=== PATIENT | female | born 1990 | race Caucasian/White ===

== ENCOUNTER → 2018-04-07 14:34 | Outpatient (CLI) | payer MEDICAID, SELFPAY ==
[2018-04-08 15:19] LABS: Glucose, Dipstick Normal (Normal); Ketone-Dipstick Negative (Negative); Leukocyte Esterase-Dipstick 500 /ul (Negative); Nitrite-Dipstick Positive (Negative); Occult Blood-Urine 10 /ul (Negative); Protein-Dipstick 15 mg/dl (Negative); Specific Gravity, Urine 1.025 (1.002-1.030); Urine Clarity Cloudy (Clear); Urine Urobilinogen 4 mg/dl (Normal)
[2018-04-08 15:23] LABS: Urine Bilirubin Dipstick 3 mg/dL (Negative)
[2018-04-08 15:35] LABS: Color, Urine Orange (Yellow)
[2018-04-08 15:37] LABS: Bacteria 3+ /hpf (None Seen); Red Blood Cells-Urine 0-5 SEEN /hpf (0-5); Squamous Epithelial Cells - UA 0-5 SEEN /hpf (5-10); White Blood Cells >100 SEEN /hpf (0-5)
[2018-04-08 15:39] LABS: Calcium Oxalate Crystals Ur RARE /hpf (<or=2+); Mucous, Urine 3+ /hpf (<or=2+)
== END ==
PROVIDERS: Referring Provider Physician Assistant Surgical; Visit Provider Physician Assistant Surgical
DX: R39.15 Urgency of urination (principal)
CPT/HCPCS: 81001; 87077; 87086; 87088; 87186

== ENCOUNTER → 2018-12-26 14:25 | Outpatient (CLI) | payer MEDICAID, SELFPAY ==
[2018-12-25 17:45] VITALS: BMI 35.4
[2018-12-26 14:28] LABS: Red Blood Cells-Urine 0 SEEN /hpf (0-5)
[2018-12-26 14:43] LABS: Color, Urine Yellow (Yellow); Glucose, Dipstick Normal (Normal); Ketone-Dipstick Negative (Negative); Leukocyte Esterase-Dipstick 25 /ul (Negative); Nitrite-Dipstick Negative (Negative); Occult Blood-Urine Negative /ul (Negative); Protein-Dipstick Negative (Negative); Specific Gravity, Urine 1.025 (1.002-1.030); Urine Bilirubin Dipstick Negative (Negative); Urine Clarity Sl. Cloudy (Clear); Urine Urobilinogen Normal (Normal)
[2018-12-26 14:50] LABS: Bacteria 2+ /hpf (None Seen); Calcium Oxalate Crystals Ur 1+ /hpf (<or=2+); Mucous, Urine 1+ /hpf (<or=2+); Squamous Epithelial Cells - UA 0-5 SEEN /hpf (5-10); White Blood Cells 0-5 SEEN /hpf (0-5)
== END ==
PROVIDERS: Referring Provider Physician Assistant Surgical; Visit Provider Physician Assistant Surgical
DX: R30.0 Dysuria (principal)
CPT/HCPCS: 81001; 87086; 87088; 87186

== ENCOUNTER → 2019-06-07 09:48 | Outpatient (CLI) | payer BC, MEDICAID, SELFPAY ==
[2019-06-07 09:31] VITALS: BMI 35.4
[2019-06-07 10:14] LABS: Absolute Lymphocyte Count 2.25 X10^3/uL (0.83-4.51); Absolute Neutrophil Count 4.8 X10^3/uL (2.0-7.7); Basophil# 0.04 X10^3/uL; Basophil% 0.5 % (0-1); Eosinophil# 0.14 X10^3/uL; Eosinophils% 1.8 % (0-5); Hematocrit 44.8 % (37-47); Hemoglobin 14.5 g/dL (12.0-15.0); Lymphocyte # 2.25 X10^3/ul (4.0); Lymphocyte % 28.8 % (19-41); Mean Corp Hgb Conc 32.4 g/dL (32-36); Mean Corpuscular Hgb 26.6 pg (27.0-32.0); Mean Corpuscular Volume 82.1 fL (81-99); Mean Platelet Vol. 10.6 fl (6.2-12.0); Monocyte# 0.53 X10^3/uL; Monocyte% 6.8 % (0-10); NRBC Flagged by Analyzer 0 % (0-5); Neutrophil # 4.81 X10^3/uL (2.7-7.7); Neutrophil % 61.7 % (47-70); Platelet Count 238 K/mm3 (150-450); RBC Distribution Width CV 13.2 % (11.6-14.6); RBC Distribution Width SD 38.5 fl (35.1-43.9); Red Blood Count 5.46 M/mm3 (4.2-5.4); White Blood Count 7.8 K/mm3 (4.4-11.0)
[2019-06-07 11:30] LABS: Prolactin 11.5 ng/mL; Thyroid Stim Hormone (TSH) 4.24 uIU/mL (0.358-3.74)
[2019-06-10 16:10] LABS: HPV APTIMA, High Risk Positive (Negative)
== END ==
PROVIDERS: Referring Provider Nurse Practitioner Women's Health; Visit Provider Nurse Practitioner Women's Health
DX: C53.9 Malignant neoplasm of cervix uteri, unspecified (principal); N92.6 Irregular menstruation, unspecified
CPT/HCPCS: 36415; 84146; 84443; 85025; 87624; 88175; G0145

== ENCOUNTER → 2019-07-02 10:24 | Outpatient (CLI) | payer BC, MEDICAID, SELFPAY ==
[2019-06-07 09:31] VITALS: BMI 35.4
[2019-07-02 13:04] LABS: Free T3 3.1 pg/mL (2.18-3.98); T4 Free Direct 0.95 ng/dL (0.76-1.46)
[2019-07-05 16:08] LABS: Thyroid Peroxidase AB 53 IU/mL (0-34)
[2019-07-05 20:33] LABS: Thyroglobulin Antibody 27.1 IU/mL (0.0-0.9)
== END ==
PROVIDERS: PCP Family Medicine; Visit Provider Family Medicine
DX: E03.9 Hypothyroidism, unspecified (principal)
CPT/HCPCS: 36415; 84439; 84443; 84481; 86376; 86800

== ENCOUNTER → 2019-07-21 09:54 | Outpatient (CLI) | payer BC, MEDICAID, SELFPAY ==
--- NOTE | 2019-07-21 | IMM_PTH ---
PATIENT: MARIBELL GARCIA LOC: [facility] U#:[id number] AGE/SX: 34/F ROOM: RE07/21/[address]: Dr. Ami Chaudhari MD : 1990 BED: DIS: SPEC #: [id number] RECD: 07/22/19 13:27 STATUS: SEAN REQ #: [id number] BRENDA: 07/21/19 00:[address]: Ami Chaudhari DEPT: IMMUNOHISTOCHEMISTRY RECD BY: Fadia Andrews ENTERED: 07/22/19 13:27 SP TYPE: IMMUNO OTHR DR: Dr. Dee Stern MD Tissues: Uterine cervix, NOS Procedures: p16 (initial) KI-67 (add) PHYSICIAN & [place] [id number] SPECIMEN INFORMATION: Tissue Source: Cervix Clinical Info: Abnormal pap LGSIL, HIV positive Specimen Number: [id number] CPT code: 73401, 30616 METHODOLOGY: Deparaffinized sections of prefer/formalin-fixed tissue or PAP/DQ stained slides are incubated with monoclonal/polyclonal antibodies/oligonucleotide probes. Localization is made via biotin free immunoperoxidase method. Appropriate controls are performed and reacted as expected. Results on target cell population are indicated in the following table: RESULTS: ANTIBODY / CLONE RESULT P16 (E6H4) negative Ki-67 (30-9) negative These tests were developed and their performance characteristics determined by [facility]. They may not have been cleared or approved by the U.S. Food and Drug Administration. The FDA has determined that such clearance or approval is not necessary. The above immunohistochemical/dualISH markers are ordered and reviewed by the Pathologist. INTERPRETATION: Cervix, biopsy: Negative for dysplasia. LEON:kelly 07/23/19
--- NOTE | 2019-07-21 | CER_PTH ---
PATIENT: MARIBELL GARCIA LOC: [facility]#:[id number] AGE/SX: 34/F ROOM: RE07/21/[address]: Dr. Ami Chaudhari MD : 1990 BED: DIS: SPEC #: [id number] RECD: 07/21/19 13:48 STATUS: SEAN BLEVINS #: [id number] BRENDA: 07/21/19 00:[address]: Ami Chaudhari DEPT: SURGICAL PATHOLOGY RECD BY: Ronald Cotton ENTERED: 07/21/19 13:53 SP TYPE: CERV OTHR DR: Dr. Dee Stern MD Tissues: Uterine cervix, NOS Procedures: Surgery Specimen Level IV HEADER OPERATION: Colposcopy PRE-OP DIAGNOSIS: Abnormal pap LGSIL, HPV positive TISSUE SUBMITTED: Cervix MICROSCOPIC DIAGNOSIS Cervix, biopsy: Focal chronic inflammation. Negative for dysplasia. See comment. LEON:kelly 2/27/20 COMMENT Immunohistochemistry ([id number]) for surrogate HPV marker (p16) supports the above diagnosis. MICROSCOPIC DESCRIPTION Slides are reviewed. GROSS DESCRIPTION Received is one container labeled with the patient's name and not further designated. The specimen consists of one irregular fragment of light gregorio soft tissue that measures 0.2 x 0.2 x 0.1 cm. The specimen is totally submitted in one cassette. / SJ:rg 07/21/19 TC:3 CPT: 74657
[2019-07-21 09:02] VITALS: BMI 36.9
[2019-07-21 10:46] LABS: Estradiol 58.7 pg/mL; Follicle Stimulating Hormone 4.7 mIU/mL
[2019-07-23 12:07] LABS: DHEA Sulfate 110.4 ug/dL (84.8-378.0)
[2019-07-23 13:02] LABS: Testosterone Free 3.8 pg/mL (0.0-4.2)
[2019-07-26 13:24] LABS: 17-Hydroxyprogesterone 44 ng/dL (.)
== END ==
PROVIDERS: PCP Family Medicine; Referring Provider Obstetrics & Gynecology; Visit Provider Obstetrics & Gynecology
DX: R87.612 Low grade squamous intraepithelial lesion on cytologic smear of cervix (LGSIL) (principal); N91.1 Secondary amenorrhea
CPT/HCPCS: 36415; 82627; 82670; 83001; 83498; 84402; 88305; 88341; 88342; 82626

== ENCOUNTER → 2019-10-15 08:46 | Outpatient (CLI) | payer MEDICAID, SELFPAY ==
[2019-08-16 09:07] VITALS: BMI 35.6
[2019-10-15 13:01] LABS: Thyroid Stim Hormone (TSH) 1.38 uIU/mL (0.358-3.74)
== END ==
PROVIDERS: PCP Family Medicine; Visit Provider Family Medicine
DX: E03.9 Hypothyroidism, unspecified (principal)
CPT/HCPCS: 36415; 84443

== ENCOUNTER 2020-04-16 12:25 | Emergency (ER) | payer MEDICAID, SELFPAY ==
[2020-01-27 09:01] VITALS: BMI 35.6
[2020-04-16 12:26] VITALS: BP 146/94; PULSE 117; RESP 18; TEMP 36.1; O2SAT 99; BMI 32.8
--- NOTE | 2020-04-16 12:34 | VDLE_ITS ---
Reason For Study: Pain RIGHT GSV is normal. CFV is compressible, spontaneous, phasic, competent and demonstrates normal augmentation. FV is compressible, spontaneous, phasic, competent and demonstrates normal augmentation. POP V is compressible, spontaneous, phasic, competent and demonstrates normal augmentation. T/P Trunk is compressible. PTV is compressible. Acute deep vein thrombosis is noted in the right peroneal vein. Procedure This is a venous duplex using B-mode, color flow and spectral Doppler. Exam performed portable in ED. A preliminary report was called and/or faxed to [facility]. Interpretation Summary Acute deep venous thrombosis right peroneal vein Patent and compressible right great saphenous vein Ordering Physician: Keely Red Referring Physician: Dee Stern Performed By: Betty Zavaleta RVT
--- NOTE | 2020-04-16 12:37 | ED.VIS.GEN ---
History of Present Illness Chief Complaint: Lower Extremity Injury Detail of Chief Complaint: Right calf pain Informant: Patient Onset: Days - 5 days Context: Gradual Onset Timing: Waxes and wanes Current Severity: Moderate Maximum Severity: Moderate Narrative: Patient presents with a 5-day history of right calf pain. She denies any known injury or change in activity. She has tried increasing fluids, drinking Gatorade, using icy hot, etc. without improvement. She is concerned for possible blood clot. She denies personal history of blood clots. She denies chest pain or shortness of breath. - Past Medical History (1) Hypothyroid Status: Chronic Past Medical History - Allergies and Home Meds Allergies/Adverse Reactions: Allergies latex Allergy (Verified 04/16/20 12:26) Unknown TAPE Allergy (Uncoded 04/16/20 12:26) Unknown Primary Care Physician: Dee Stern MD [Primary Care Provider] - Prior records reviewed: Yes Lives: With Family Smoking Status: Never smoker Review of Systems General: Denies: Chills, Fever Eyes: Denies: Visual changes - bilaterally ENT: Denies: Bilateral ear pain Cardiovascular: Denies: Chest pain Respiratory: Denies: Dyspnea, Cough Gastrointestinal: Denies: Abdominal pain Musculoskeletal: Reports: Swelling, Extremity Pain Skin: Denies: Rash Endocrine: Denies: Polyuria, Polydipsia Hematologic: Denies: Easy bruising Physical Exam Vital Signs/Narrative: Vital Signs Temp Pulse Resp BP Pulse Ox 04/16/20 12:26 96.9 F L 117 H 18 146/94 H 99 Inital Vital Signs reviewed: Yes General: Well nourished, Well developed Head: Normocephalic ENT: Moist mucous membranes Neck: Supple Cardiovascular: Regular rate, Regular rhythm Respiratory: No distress, CTA bilaterally Abdomen: Soft, Nontender Extremities: Calf Tenderness - Mild right calf tenderness. Minimal edema. No overlying skin changes. Skin: Normal color Neurological: Alert, Oriented x3, Normal Strength, Normal Sensation Psychological: Normal affect Diagnostic/Tx/Re-eval - Medical Decision Making Venous ultrasound of the right lower extremity was performed. Per tech she does have a peroneal clot. Test results are discussed with the patient. At this time she has no risk factors for clot. A hypercoagulable panel will be drawn and she will be started on Xarelto. ED Disposition - Plan for ED Patient: Disposition: Home or Assisted Living Diagnosis: DVT (deep venous thrombosis) Instructions: ED DVT Prescriptions: Rivaroxaban [Xarelto] 15 mg PO BID.TCU #42 tab Transmission Status: Pending to [id number] Referrals: Dee Stern MD [Primary Care Provider] - 1-2 Weeks
[2020-04-16] MEDS: Rivaroxaban 15 MG Tablet PO (14:10)
[2020-04-16 14:21] VITALS: PULSE 110; RESP 18; O2SAT 98
[2020-04-19 20:08] LABS: Protein C Antigen 119 % (60-150); Protein C, Functional 161 % (73-180)
[2020-04-21 12:07] LABS: Antithrombin 3 Function 50 % (75-135)
[2020-04-21 15:55] LABS: Anti-Cardiolipin Ab, IgG, Qn < 9 GPL U/mL (0-14); Anti-Cardiolipin Ab, IgM, Qn 11 MPL U/mL (0-12); Anti-Thrombin 3 AG, Immunol 67 % (72-124); Beta-2-Glycoprotein I IgA <9 (0-25); Beta-2-Glycoprotein I IgG <9 (0-20); Beta-2-Glycoprotein I IgM <9 (0-32)
== END 2020-04-16 14:24 | disposition home or self-care (01) ==
PROVIDERS: Emergency Provider Emergency Medicine; PCP Family Medicine
DX: I82.451 Acute embolism and thrombosis of right peroneal vein (principal); E03.9 Hypothyroidism, unspecified; Z79.899 Other long term (current) drug therapy
CPT/HCPCS: 36415; 81240; 81241; 85300; 85301; 85302; 85303; 86146; 86147; 93971; 99282

== ENCOUNTER → 2020-06-14 | Outpatient (CLI) | payer MEDICAID, SELFPAY ==
[2020-06-14 09:09] VITALS: BMI 48.5
[2020-06-20 14:23] LABS: HPV APTIMA, High Risk Negative (Negative)
== END | disposition home or self-care (01) ==
LOC: LABSPEC 12:56
PROVIDERS: PCP Family Medicine; Referring Provider Nurse Practitioner Women's Health; Visit Provider Nurse Practitioner Women's Health
DX: Z12.4 Encounter for screening for malignant neoplasm of cervix (principal)
CPT/HCPCS: 87624; 88175; G0145

== ENCOUNTER → 2020-12-25 | Outpatient (CLI) | payer MEDICAID, SELFPAY ==
[2020-06-14 09:09] VITALS: BMI 48.5
[2020-12-25 13:28] LABS: Color, Urine Yellow (Yellow); Glucose, Dipstick Normal (Normal); Ketone-Dipstick Negative (Negative); Leukocyte Esterase-Dipstick 500 /ul (Negative); Nitrite-Dipstick Negative (Negative); Occult Blood-Urine 25 /ul (Negative); Protein-Dipstick 30 mg/dl (Negative); Urine Bilirubin Dipstick Negative (Negative); Urine Clarity Cloudy (Clear); Urine Urobilinogen Normal (Normal); Urine pH 6.5 (5.0 - 8.0)
[2020-12-25 13:36] LABS: Bacteria 2+ /hpf (None Seen); Red Blood Cells-Urine 0-5 SEEN /hpf (0-5); Squamous Epithelial Cells - UA 5-10 SEEN /hpf (5-10); White Blood Cells 50-100 SEEN /hpf (0-5)
[2020-12-25 13:37] LABS: Mucous, Urine 1+ /hpf (<or=2+)
== END | disposition home or self-care (01) ==
LOC: LABSPEC 12:57
PROVIDERS: PCP Family Medicine; Referring Provider Physician Assistant Surgical; Visit Provider Physician Assistant Surgical
DX: R35.8 Other polyuria (principal); R30.0 Dysuria
CPT/HCPCS: 81001

== ENCOUNTER → 2021-01-22 14:46 | Outpatient (CLI) | payer MEDICAID, SELFPAY ==
[2021-01-04 08:46] VITALS: BMI 33.3
--- NOTE | 2021-01-22 14:48 | MRI_ITS ---
STUDY: MRI BRAIN WITH AND WITHOUT CONTRAST REASON FOR EXAM: Female, 30 years old. Syncope TECHNIQUE: Standardized multiplanar fat and water weighted pulse sequences were obtained. IV Dotarem 20ml was administered for the contrast portion of the examination. COMPARISON: None. FINDINGS: Normal size of the ventricles and extra-axial spaces for the patient''s age. Normal white matter tracts of the supratentorial brain. Normal bilateral basal ganglia. Normal thalami. There is no extra-axial fluid accumulation. Normal flow voids within the major intracranial circulation suggesting patency by spin echo criteria. Normal venous enhancement. There is no enhancing intra-axial or extra-axial abnormality. Normal sella turcica, pituitary gland, infundibular stalk, optic chiasm and hypothalamus. Normal tectal plate and pineal gland. Normal midbrain, leonard and medulla. Normal cerebellum. Normal basal cisterns. Normal bilateral temporal bones. Normal bilateral internal auditory canals. No demonstrated orbital abnormality, within the constraints of a routine brain study. Normal visualized paranasal sinuses. Normal calvarium and skull base. Normal visualized soft tissue structures. Normal visualized upper cervical spine. MRI/Brain W/WO Contrast IMPRESSION: Normal unenhanced and enhanced MRI of the brain. Electronically Signed: Mohamud Sorto MD at 17:10 EDT , Service support ,
--- NOTE | 2021-01-22 14:48 | ECHOD_ITS ---
Reason For Study: SYNCOPE/NEAR SYNCOPE Procedure This was a 2D Doppler, Color Flow transthoracic echocardiogram. Exam performed in department. Left Ventricle Normal LV size. Left ventricular systolic function is normal. The estimated ejection fraction is 60 %. No regional wall motion abnormalities noted. Right Ventricle Normal RV size. Normal systolic function. Atria Normal left atrium. Normal right atrium. Mitral Valve Normal mitral valve. Tricuspid Valve Normal tricuspid valve. Aortic Valve Trisinus/trileaflet aortic valve. Pulmonic Valve Normal pulmonic valve. Great Vessels Normal aortic root. The pulmonary artery is normal size. Normal inferior vena cava. Pericardium/Pleural No pericardial effusion. MMode/2D Measurements & Calculations LVIDd: 5.0 cm IVSd: 0.78 cm Ao root diam: 2.6 cm LVIDs: 3.2 cm LVPWd: 0.96 cm FS: 36.6 % LAV(MOD-bp): 51.3 ml LA A4 area: 18.6 cm2 LA dimension(2D): 3.8 cm LAV(MOD-bp) Indexed: 22.7 ml/m2 LAV(MOD-sp2): 47.3 ml LAV(MOD-sp4): 51.4 ml RA A4 area: 14.4 cm2 Doppler Measurements & Calculations Ao V2 max: 113.6 cm/sec LV V1 max: 92.4 cm/sec PA V2 max: 87.1 cm/sec Ao max P.2 mmHg LV V1 max P.4 mmHg ECHO/Echo Complete Interpretation Summary Normal LV size. Left ventricular systolic function is normal. The estimated ejection fraction is 60 %. Structurally normal valves. Ordering Physician: Abelardo Jason Referring Physician: Dee Stern Performed By: Evelin Cheng, CLEM, RVT
== END ==
PROVIDERS: PCP Family Medicine; Referring Provider Psychiatry & Neurology Neurology; Visit Provider Psychiatry & Neurology Neurology
DX: R55 Syncope and collapse (principal)
CPT/HCPCS: 70553; 93306; A9575; J3490

== ENCOUNTER → 2021-01-30 08:29 | Outpatient (CLI) | payer MEDICAID, SELFPAY ==
[2021-01-30 08:55] LABS: Internal QC Validated? YES +Cl - CLEAR BKGD; Pregnancy, Urine Negative Negative
[2021-01-30 08:58] LABS: Hematocrit 44.3 % (37-47); Hemoglobin 14.6 g/dL (12.0-15.0); Mean Corpuscular Hgb 26.9 pg (27.0-32.0); Mean Corpuscular Volume 81.6 fL (81-99); Mean Platelet Vol. 10.4 fl (6.2-12.0); Platelet Count 234 K/mm3 (150-450); RBC Distribution Width CV 12.7 % (11.6-14.6); RBC Distribution Width SD 37.5 fl (35.1-43.9); Red Blood Count 5.43 M/mm3 (4.2-5.4); White Blood Count 8.4 K/mm3 (4.4-11.0)
[2021-01-30 09:32] LABS: ALB/GLOB Ratio 0.9 RATIO (0.9-2.4); AST(SGOT) 19 U/L (15-37); Alanine Aminotransfer ALT/SGPT 28 U/L (13-56); Albumin, Serum 3.3 g/dL (3.2-5.0); Alkaline Phosphatase 89 U/L (45-117); Anion Gap 3 (5-15); BUN 15 mg/dL (7-18); BUN/Creat Ratio 19.9 RATIO (10-20); Calcium,Total 8.1 mg/dL (8.5-10.1); Chloride 105 mmol/L (98-107); Creatinine, Serum 0.76 mg/dL (0.55-1.02); EST Glomerular Filtration Rate 96 mL/min (>60); Est Glom Filt Rate - Afr Amer 116 mL/min (>60); Globulin 3.7 g/dL (2.2-4.2); Glucose 100 mg/dL (74-106); Sodium Level 136 mmol/L (136-145)
--- NOTE | 2021-01-30 15:31 | TILTTABLE_ITS ---
Staff Staff: Adrienne Braswell and - (Bernarda Molina) Summary Pre Test Resting HR: 74 Pre Test Resting BP: 132/77 Minimum Test HR: 0 Maximum Test HR: 111 Minimum Test BP: 0/0 Maximum Test BP: 132/89 Reason for Test Termination: Syncope Physician Tilt Table Report Patient's Physicians Primary Care Physician: Dee Stern Indications/Diagnosis: Syncope Procedure Comments: The patient presented to the tilt table laboratory and was awake and alert. The baseline heart rate was 74 bpm with a baseline blood pressure 132/77 mmHg. The baseline cardiac rhythm was normal sinus rhythm. The patient was placed in the 70 degree upright tilt table position for 20 minutes. The patient remained alert and oriented and warm and dry. The minimal heart rate was 74 bpm with a minimal blood pressure of 123/79 mmHg with a maximal heart rate of 86 bpm and a maximal blood pressure of 129/84 mmHg. The cardiac rhythm remained sinus rhythm. The patient did not lose consciousness. The patient subsequently received nitroglycerin 0.4 mg sublingual x1. The patient was initially alert and oriented and warm and dry. The patient was noted to have a heart rate of 81 bpm with a blood pressure of 132/89 mmHg. Approximately 2 minutes later the patient was noted to have a heart rate of 111 bpm and a blood pressure 130/75 mmHg. The patient was noted to be in sinus rhythm. The patient was subsequently noted to appear clammy and flushed. The patient was reported to have her heart rate increased to 109 bpm and subsequently declined into the 40 bpm range and then subsequently was undetectable. The blood pressure was undetectable. The patient was noted on the residential monitor to become bradycardic and subsequently have an approximate 9-second pause. The patient was reported as unresponsive. The patient was placed back in the supine position where the patient's eyes were reported as then open.. The patient was reported as appearing pale but alert. The patient was noted to have a heart rate of 67 bpm with a blood pressure 128/64 mmHg. The patient's cardiac rhythm was noted to be sinus bradycardia with subsequent return to normal sinus rhythm. The patient received IV normal saline 500 cc. The patient remained alert. The patient was reported to appear pink. The patient was noted to have a concluding heart rate of 88 bpm and a concluding blood pressure 133/86 mmHg. The patient remained in sinus rhythm. The patient reported feeling improved. The patient appeared to return to baseline. The patient was subsequently released from the tilt table laboratory. Summary: 70 degree upright tilt table study status post nitroglycerin sublingual challenge considered positive for reproducible vasovagal/neurocardiogenic (combined cardioinhibitory/vasodepressor) syncope. This note was generated using a voice recognition system and there may be incorrect words, spelling or punctuation that were not noted when reviewing the office note prior to saving.
[2021-01-30 15:51] VITALS: BP 0/0; BP 132/77; BP 132/89
== END ==
PROVIDERS: PCP Family Medicine; Visit Provider Psychiatry & Neurology Neurology
DX: R55 Syncope and collapse (principal); E03.9 Hypothyroidism, unspecified
CPT/HCPCS: 36415; 80053; 81025; 84443; 85027; 93660; J7040; A4216

== ENCOUNTER → 2021-02-09 06:26 | Outpatient (CLI) | payer MEDICAID, SELFPAY ==
[2021-01-04 08:46] VITALS: BMI 33.3
--- NOTE | 2021-02-09 09:17 | TELEMED_ITS ---
[facility] Tele[facility] has confirmed receipt of a request for visit. This document confirms receipt of the order initiating the consult. To find the results of the consultation, please view the patient's reports for the scanned Telemed Consult.
== END ==
PROVIDERS: PCP Family Medicine; Referring Provider Psychiatry & Neurology Neurology; Visit Provider Psychiatry & Neurology Neurology
DX: R55 Syncope and collapse (principal)
CPT/HCPCS: 95819

== ENCOUNTER 2021-06-18 11:55 | Outpatient (CLI) | payer MEDICAID, SELFPAY ==
[2021-06-20 17:14] LABS: HPV Reflexed? NOT INDICATED
== END 2021-06-18 23:59 | disposition short-term general hospital (02) ==
LOC: LABSPEC 11:56
PROVIDERS: PCP Family Medicine; Referring Provider Nurse Practitioner Women's Health; Visit Provider Nurse Practitioner Women's Health
DX: Z12.4 Encounter for screening for malignant neoplasm of cervix (principal)
CPT/HCPCS: 88175; G0145

== ENCOUNTER → 2021-11-05 | Outpatient (CLI) | payer MEDICAID, SELFPAY ==
[2021-11-05 17:40] LABS: Amphetamine Urine VISTA NEGATIVE (<1000 ng/mL); Barbiturate Urine VISTA NEGATIVE (< 200 ng/mL); Benzodiazepine Urine VISTA NEGATIVE (< 200 ng/mL); Cocaine Urine VISTA NEGATIVE (< 300 ng/mL); Ecstacy Urine VISTA NEGATIVE (< 500 ng/mL); Methadone Urine VISTA NEGATIVE (< 300 ng/mL); PCP Urine VISTA NEGATIVE (< 25 ng/mL); THC Urine VISTA NEGATIVE (< 50 ng/mL); Vista UDS pH Range 7
[2021-11-07 22:07] LABS: Chlamydia By Nucleic Acid AMP Negative (Negative)
[2021-11-07 22:53] LABS: Gonococcus By Nucleic Acid AMP Negative (Negative)
== END | disposition home or self-care (01) ==
LOC: LABSPEC 16:43
PROVIDERS: PCP Family Medicine; Visit Provider Obstetrics & Gynecology
DX: Z34.91 Encounter for supervision of normal pregnancy, unspecified, first trimester (principal); Z3A.09 9 weeks gestation of pregnancy
CPT/HCPCS: 80307; 87086; 87088; 87491; 87591

== ENCOUNTER → 2021-11-16 | Outpatient (CLI) | payer MEDICAID, SELFPAY ==
[2021-11-16 09:57] LABS: Absolute Lymphocyte Count 1.87 X10^3/uL (0.83-4.51); Absolute Neutrophil Count 5.3 X10^3/uL (2.0-7.7); Basophil# 0.03 X10^3/uL; Basophil% 0.4 % (0-1); Eosinophil# 0.09 X10^3/uL; Eosinophils% 1.2 % (0-5); Hematocrit 40.6 % (37-47); Hemoglobin 13.6 g/dL (12.0-15.0); Lymphocyte # 1.87 X10^3/ul (0.83-4.51); Lymphocyte % 24.3 % (19-41); Mean Corp Hgb Conc 33.5 g/dL (32-36); Mean Corpuscular Hgb 27.6 pg (27.0-32.0); Mean Corpuscular Volume 82.5 fL (81-99); Mean Platelet Vol. 10.6 fl (6.2-12.0); Monocyte# 0.41 X10^3/uL; Monocyte% 5.3 % (0-10); NRBC Flagged by Analyzer 0 % (0-5); Neutrophil # 5.28 X10^3/uL (2.7-7.7); Neutrophil % 68.5 % (47-70); Platelet Count 212 K/mm3 (150-450); RBC Distribution Width CV 12.6 % (11.6-14.6); Red Blood Count 4.92 M/mm3 (4.2-5.4); White Blood Count 7.7 K/mm3 (4.4-11.0)
[2021-11-16 10:42] LABS: T4 Free Direct 1.24 ng/dL (0.76-1.46); Thyroid Stim Hormone (TSH) 2.66 uIU/mL (0.358-3.74)
[2021-11-16 10:51] LABS: NATERA MAILED SPECIMEN
[2021-11-16 11:10] LABS: HIV - WCH Non-Reactive (Nonreactive); Hepatitis B Surface Antigen Non-Reactive (Nonreactive); Hepatitis C Antibody Non-Reactive (Nonreactive); Rubella IgG Reactive (Nonreactive); Syphilis Antibodies Non-reactive
== END | disposition home or self-care (01) ==
LOC: PAVLAB 09:35
PROVIDERS: PCP Family Medicine; Referring Provider Obstetrics & Gynecology; Visit Provider Obstetrics & Gynecology
DX: Z34.81 Encounter for supervision of other normal pregnancy, first trimester (principal); Z3A.09 9 weeks gestation of pregnancy
CPT/HCPCS: 36415; 84439; 84443; 85025; 86703; 86762; 86780; 86803; 86850; 86900; 86901; 87340

== ENCOUNTER → 2021-11-22 | Outpatient (CLI) | payer MEDICAID, SELFPAY ==
[2021-11-22 14:08] LABS: Glucose Challenge Gest 1H 50g 114 mg/dL (70-140)
== END | disposition home or self-care (01) ==
LOC: PAVLAB 13:23
PROVIDERS: PCP Family Medicine; Referring Provider Obstetrics & Gynecology; Visit Provider Obstetrics & Gynecology
DX: Z34.90 Encounter for supervision of normal pregnancy, unspecified, unspecified trimester (principal); Z3A.09 9 weeks gestation of pregnancy
CPT/HCPCS: 36415; 82950

== ENCOUNTER → 2021-12-10 | Outpatient (CLI) | payer MEDICAID, SELFPAY ==
[2021-12-10 16:56] LABS: NATERA MAILED SPECIMEN
== END | disposition home or self-care (01) ==
LOC: PAVLAB 12:07
PROVIDERS: PCP Family Medicine; Referring Provider Obstetrics & Gynecology; Visit Provider Obstetrics & Gynecology
DX: O30.042 Twin pregnancy, dichorionic/diamniotic, second trimester (principal); Z3A.00 Weeks of gestation of pregnancy not specified
CPT/HCPCS: 36415

== ENCOUNTER → 2022-03-06 | Outpatient (CLI) | payer MEDICAID, SELFPAY ==
[2022-03-06 09:47] LABS: Absolute Lymphocyte Count 2.46 X10^3/uL (0.83-4.51); Absolute Neutrophil Count 11.4 X10^3/uL (2.0-7.7); Basophil# 0.05 X10^3/uL; Basophil% 0.3 % (0-1); Eosinophil# 0.12 X10^3/uL; Eosinophils% 0.8 % (0-5); Hematocrit 37.6 % (37-47); Hemoglobin 12.4 g/dL (12.0-15.0); Lymphocyte # 2.46 X10^3/ul (0.83-4.51); Lymphocyte % 16.5 % (19-41); Mean Corpuscular Hgb 28.5 pg (27.0-32.0); Mean Corpuscular Volume 86.4 fL (81-99); Mean Platelet Vol. 10.6 fl (6.2-12.0); Monocyte% 4.7 % (0-10); NRBC Flagged by Analyzer 0 % (0-5); Neutrophil % 76.2 % (47-70); Platelet Count 217 K/mm3 (150-450); RBC Distribution Width CV 13.7 % (11.6-14.6); RBC Distribution Width SD 43.8 fl (35.1-43.9); Red Blood Count 4.35 M/mm3 (4.2-5.4)
[2022-03-06 10:52] LABS: Glucose Challenge Gest 1H 50g 147 mg/dL (70-140)
== END | disposition home or self-care (01) ==
LOC: PAVLAB 09:22
PROVIDERS: Obstetrics & Gynecology; PCP Family Medicine; Referring Provider Obstetrics & Gynecology; Visit Provider Obstetrics & Gynecology
DX: O09.90 Supervision of high risk pregnancy, unspecified, unspecified trimester (principal); Z3A.00 Weeks of gestation of pregnancy not specified
CPT/HCPCS: 36415; 82950; 85025

== ENCOUNTER → 2022-03-07 | Outpatient (CLI) | payer MEDICAID, SELFPAY ==
[2022-03-07 11:21] LABS: Glucose GTT-Gestation. Fasting 93 mg/dL (<105)
[2022-03-07 12:47] LABS: Glucose GTT-Gestational 2 Hr 130 mg/dL (<165)
[2022-03-07 12:48] LABS: Glucose GTT-Gestational 1 Hr 138 mg/dL (<190)
[2022-03-07 13:46] LABS: Glucose GTT-Gestational 3 Hr 104 L (<145)
== END | disposition home or self-care (01) ==
LOC: LAB 09:53
PROVIDERS: PCP Family Medicine; Referring Provider Nurse Practitioner Women's Health; Visit Provider Nurse Practitioner Women's Health
DX: Z13.1 Encounter for screening for diabetes mellitus (principal)
CPT/HCPCS: 36415; 82951; 82952

== ENCOUNTER 2022-03-16 16:43 | Emergency (ER) | payer MEDICAID, SELFPAY ==
[2022-03-16 16:46] VITALS: BP 141/83; PULSE 117; RESP 20; TEMP 36.8; O2SAT 98; BMI 35.6
--- NOTE | 2022-03-16 16:59 | EKG12_ITS ---
Test Reason : SYNCOPE Blood Pressure : / mmHG Vent. Rate : 105 BPM Atrial Rate : 105 BPM P-R Int : 146 ms QRS Dur : 078 ms QT Int : 322 ms P-R-T Axes : 033 -13 022 degrees QTc Int : 425 ms Sinus tachycardia Poor R wave progression Confirmed by RICKEY ABDULLAHI, GUY ([id number]), web content editor PARAS CRUZ ([id number]) on 03/19/2022 1:31:10 PM Referred By: ELISEO Confirmed By:GUY LANG MD
--- NOTE | 2022-03-16 17:01 | EDS_ITS ---
HPI History of Present Illness Chief Complaint: Syncope Informant: patient and spouse/S.O. Narrative Narrative: Patient had a syncopal episode at a wedding. She was standing up for about 6 or 7 minutes. She was watching them take her bowels. She started to feel little lightheaded. She states she got a little bit clammy and her vision narrowed down and she knew she was going to pass out. She has laid down and did not hurt her self. When asked, initially she stated she had no history of any medical problems. Then she states this is happened before. She has been evaluated. She has had tilt table test. She is told that it is a vasovagal syncope. Of note, she is on Lovenox for history of DVT. She is also currently 28 weeks and 4 days gestation with twins. She has not been having problems. She has been eating and drinking well. No nausea vomiting. No fevers or chills. No generalized illness. She has not had her water break or bleeding. No pelvic or abdominal pain or cramping. She also history of thyroid disease. [facility] Medical History H/O blood clots Hx of cardiac murmur Home Medications levothyroxine 50 mcg tablet 50 mcg PO DAILY 04/16/20 [History Last Taken Unknown] docosahexaenoic acid 200 mg capsule ( DHA) 200 mg PO DAILY 06/18/21 [History Last Taken Unknown] enoxaparin 40 mg/0.4 mL subcutaneous syringe See Rx Instructions .Route .COMPLEX #30 mL 02/18/22 [Rx Last Taken Unknown] aspirin 81 mg capsule 81 mg PO DAILY 03/16/22 [History Last Taken Unknown] Allergy/AdvReac Type Severity Reaction Status Date / Time latex Allergy Unknown Verified 02/07/22 10:03 TAPE Allergy Unknown Uncoded 10/24/21 16:09 Anesthesia AdvReac Severe Hard to Uncoded 10/24/21 16:09 wake, Vomiting Family History Mother Age related osteoporosis CVA (cerebral vascular accident) Myeloma Anesthesia complication History of blood clots Cancer Grandfather Alcoholism Asthma Diabetes Myocardial infarction 40's Respiratory disease Heart disease Grandfather Myocardial infarction 40's Grandmother Anesthesia complication Arthritis Breast cancer Epilepsy Skin cancer CVA (cerebral vascular accident) Father Arthritis Depression Hypertension High cholesterol Thyroid disorder Daughter Alatorre syndrome Surgical History History of History of colposcopy History of placement of ear tubes History of tonsillectomy Social History adopted: No household members: significant other number of children: 1 current occupational status: employed and previously employed current occupation: [employer] Smoking Status: Never smoker alcohol intake: never substance use type: does not use caffeine: Yes (limited) Type: tea what type of physical activity do you participate in: walking seatbelt use: always do you feel safe at home: Yes additional social history: Vicky CLARK ROS ED Constitutional Constitutional ED: Denies chills or fever(s) Eyes Eyes: Denies diplopia ENT ENT ED: Denies ear pain Cardiovascular Cardiovascular: Denies chest pain, palpitations or racing heartbeat Respiratory/Chest Respiratory/Chest: Denies cough, dyspnea or dyspnea on exertion Gastrointestinal Gastrointestinal: Denies nausea or vomiting Genitourinary Genitourinary ED: Reports other Details: Pelvic pain, cramping, ; Denies dysuria, hematuria or urinary frequency Musculoskeletal Musculoskeletal: Denies back pain Integumentary Denies Abrasions Neurologic Neurologic: Denies headache(s) Endocrine Endocrinology: Denies polydipsia or polyuria Hematologic/Lymphatic Hematologic/Lymphatic: Reports easy bleeding and easy bruising Allergic/Immunologic Allergic/Immunologic ED: Denies urticaria EXAM Physical Exam Const Vital Signs: 03/16/22 16:46 03/16/22 17:40 03/16/22 18:11 Temperature 98.3 F Temperature Source Temporal Pulse Rate 117 H 97 101 H Respiratory Rate 20 H 14 18 Blood Pressure 141/83 H 127/79 H 129/79 H Blood Pressure Mean 102 95 95 Pulse Ox 98 98 99 Oxygen Delivery Method Room Air Room Air Room Air Positive well nourished and well developed Constitutional Narrative: Patient awake alert no acute distress. She is sitting on the edge of the bed. She is nontoxic General Appearance ED: well developed and NAD; Negative for pallor HEENT Reports moist mucous membranes Eyes General Eye ED: Negative for pale conjunctiva or scleral icterus Neck no lymphadenopathy and no JVD Chest Wall inspection of chest normal Resp normal respiratory effort and clear to auscultation bilaterally Resp Narrative: No pain with a deep breath Cardio regular rhythm and no murmurs Rate: other Other Details: Heart rates about 105 currently. There is a history of a murmur but I do not hear one right at this time. GI GI Narrative: Abdomen is gravid. Nontender though. Extremity General Extremety ED: Negative for tenderness Neuro oriented x3 Sensorium / Orientation: alert; Negative for lethargic or stuporous Psych mental status grossly normal Skin no rashes or lesions noted Skin Narrative: No diaphoresis General Skin Exam: Negative for pallor MDM MDM MDM Narrative Medical decision making narrative: Patient did have an elevated white count. But this can be common with . She has no symptoms of infection. She has been eating and drinking. She feels good. She was given fluids. Her heart rate is down down to 88. It was difficult to get heart tones. Therefore, I did a bedside ultrasound. She does have twin gestation. Both have good heartbeat in the 1 40-1 50 range. Patient would like to go home at this time. She has an official ultrasound tomorrow. She has had syncopal episodes before. She has been diagnosed with vasovagal syncope. She is already on blood thinners. There is no bleeding or indication of complication with . Lab Data Attestation: I reviewed the patient's lab results. Labs: Laboratory Results - last 24 hr 03/16/22 03/16/22 17:12 17:12 WBC 17.2 H RBC 4.40 Hgb 12.2 Hct 37.0 MCV 84.1 MCH 27.7 MCHC 33.0 RDW Std Deviation 40.6 RDW Coeff of Duyen 13.2 Plt Count 210 MPV 11.0 Immature Gran % (Auto) 1.700 H Neut % (Auto) 79.4 H Lymph % (Auto) 12.7 L Tucker % (Auto) 5.4 Eos % (Auto) 0.6 Baso % (Auto) 0.2 Absolute Neuts (auto) 13.7 H Absolute Lymphs (auto) 2.18 Nucleated RBC % 0 Sodium 139 Potassium 3.7 Chloride 109 H Carbon Dioxide 20.0 L Anion Gap 10 BUN 6 L Creatinine 0.60 Estim Creat Clear Calc 148.26 Est GFR (MDRD) Af Amer 150 Est GFR (MDRD) Non-Af 124 BUN/Creatinine Ratio 10.0 Glucose 116 H Calcium 9.1 Discharge Plan Triage Chief Complaint: Syncope Other Complaint: ED Provider: Catarino Figueroa Dx/Rx/DC Orders Clinical Impression: Episode of syncope Instructions: ED Fainting, Vagal Reaction Prescriptions: No Action DHA 200 mg capsule 200 mg PO DAILY levothyroxine 50 MCG tablet 50 mcg PO DAILY aspirin 81 mg Capsule 81 mg PO DAILY enoxaparin 40 mg/0.4 mL syringe See Rx Instructions .ROUTE .COMPLEX Qty: 30 1RF Dose Instruction: INJECT THE CONTENTS OF 1 SYRINGE SUBCUTANEOUSLY ONCE DAILY Rx Instructions: INJECT THE CONTENTS OF 1 SYRINGE SUBCUTANEOUSLY ONCE DAILY Primary Care Provider: Dee Stern Referrals: Dee Stern MD [Primary Care Provider] - As Needed Disposition Disposition: Home, Self Care
--- NOTE | 2022-03-16 17:11 | NURSING ---
NO OLD EKGS
[2022-03-16 17:32] LABS: Absolute Lymphocyte Count 2.18 X10^3/uL (0.83-4.51); Absolute Neutrophil Count 13.7 X10^3/uL (2.0-7.7); Basophil# 0.04 X10^3/uL; Basophil% 0.2 % (0-1); Eosinophils% 0.6 % (0-5); Hemoglobin 12.2 g/dL (12.0-15.0); Lymphocyte # 2.18 X10^3/ul (0.83-4.51); Lymphocyte % 12.7 % (19-41); Mean Corpuscular Hgb 27.7 pg (27.0-32.0); Mean Corpuscular Volume 84.1 fL (81-99); Monocyte# 0.93 X10^3/uL; Monocyte% 5.4 % (0-10); NRBC Flagged by Analyzer 0 % (0-5); Neutrophil # 13.66 X10^3/uL (2.7-7.7); Neutrophil % 79.4 % (47-70); Platelet Count 210 K/mm3 (150-450); RBC Distribution Width CV 13.2 % (11.6-14.6); RBC Distribution Width SD 40.6 fl (35.1-43.9); White Blood Count 17.2 K/mm3 (4.4-11.0)
[2022-03-16 17:40] VITALS: BP 127/79; PULSE 97; RESP 14; O2SAT 98
[2022-03-16 17:58] LABS: Anion Gap 10 (5-15); BUN 6 mg/dL (7-18); Calcium,Total 9.1 mg/dL (8.5-10.1); Chloride 109 mmol/L (98-107); EST Glomerular Filtration Rate 124 mL/min (>60); Est Glom Filt Rate - Afr Amer 150 mL/min (>60); Estimated Creatinine Clearance 148.26 ml/min; Glucose 116 mg/dL (74-106); Potassium 3.7 mmol/L (3.5-5.1); Sodium Level 139 mmol/L (136-145)
[2022-03-16 18:11] VITALS: BP 129/79; PULSE 101; RESP 18; O2SAT 99
[2022-03-16] MEDS: 0.9% Normal Saline 1,000 ML 999 ML IV (18:17)
[2022-03-16 20:00] VITALS: RESP 18
[2022-03-16 20:19] VITALS: RESP 18
== END 2022-03-16 20:38 | disposition home or self-care (01) ==
PROVIDERS: Emergency Provider Emergency Medicine; PCP Family Medicine; Visit Provider Emergency Medicine
DX: O26.893 Other specified pregnancy related conditions, third trimester (principal); R55 Syncope and collapse; O30.003 Twin pregnancy, unspecified number of placenta and unspecified number of amniotic sacs, third trimester; Z79.01 Long term (current) use of anticoagulants; Z3A.28 28 weeks gestation of pregnancy; Z86.718 Personal history of other venous thrombosis and embolism
CPT/HCPCS: 80048; 85025; 93005; 96360; 99285; J7030; A4216

== ENCOUNTER → 2022-03-21 | Outpatient (CLI) | payer MEDICAID, SELFPAY ==
--- NOTE | 2022-03-21 09:34 | US_ITS ---
STUDY: SECOND AND THIRD TRIMESTER OBSTETRICAL ULTRASOUND - LIMITED REASON FOR EXAM: Female, 31 years old growth -- Twins- every 4 weeks . Baby A LMP: 08/28/2021 PRIOR ULTRASOUND: None. TECHNIQUE: Transabdominal TECHNICAL QUALITY: Adequate. FINDINGS: There is a single intrauterine fetus. The fetus is in a cephalic presentation. There is demonstrated cardiac activity with a heart rate of 141 bpm. There is a normal amniotic fluid volume. The largest amniotic fluid pocket measures 6.13 cm. The amniotic fluid index (SCAR) is within normal limits The placenta is posterior in location and is not low lying. There are Grade 1 placental changes. The cervix measures 3.53 cm in length. BIOMETRY: BPD: 7.75 cm: 31 weeks, 1 days HC: 28.49 cm: 31 weeks, 2 days AC: 23.18 cm: 27 weeks, 4 days FL: 5.17 cm: 27 weeks, 4 days Age by LMP: 29 weeks, 2 days. RODRI by LMP: 06/04/2022. age by current US: 29 weeks, 5 days. RODRI by current US: 06/01/2022. Estimated weight: 1176 grams, +/- 176 grams, 90 percentile. IMPRESSION: Twin A :29 weeks and 5 days Electronically Signed: Kris Aguero MD at 15:29 EDT , STUDY: SECOND AND THIRD TRIMESTER OBSTETRICAL ULTRASOUND - TWIN REASON FOR EXAM: Female, 31 years old. LMP: growth -- Twins- every 4 weeks. Twin B TECHNIQUE: Transabdominal TECHNICAL QUALITY: Adequate. COMPARISON: None. FINDINGS: Fetus B demonstrates female external genitalia. Fetus B demonstrates cardiac activity with a heart rate of 141 bpm. Fetus B is in a breech presentation. FETUS B BIOMETRY: BPD: 7.18 cm: 28 weeks, 6 days HC: 26.53 cm: 28 weeks, 6 days AC: 24.54 cm: 28 weeks, 6 days FL: 5.45 cm: 28 weeks, 6 days CI: 80% FL/BPD: 75.8% FL/HC: FL/AC: 22.2% HC/AC: 1.08 age by current US: 28 weeks, 4 days. RODRI by current US: 06/09/2022. Estimated weight: 1297 grams, +/- 195 grams, 24.2 %. Age by LMP: 29 weeks, 2 days. RODRI by LMP: 06/04/2022. US/OB Limited With Biometrics IMPRESSION: Fetus B with mean gestational age of 28 weeks and 4 days. Electronically Signed: Kris Aguero MD at 15:31 EDT ,
== END | disposition home or self-care (01) ==
LOC: US 09:33
PROVIDERS: PCP Family Medicine; Referring Provider Obstetrics & Gynecology; Visit Provider Obstetrics & Gynecology
DX: O30.049 Twin pregnancy, dichorionic/diamniotic, unspecified trimester (principal)
CPT/HCPCS: 76816

== ENCOUNTER → 2022-04-09 | Outpatient (CLI) | payer MEDICAID, SELFPAY ==
--- NOTE | 2022-04-09 09:41 | US_ITS ---
STUDY: OBSTETRICAL ULTRASOUND - BIOPHYSICAL PROFILE REASON FOR EXAM: Female, 31 years old wellbeing -- Twins- weekly at 32 weeks . Twin A LMP: 08/28/2021 PRIOR ULTRASOUND: Comparison is made with prior study 03/21/2022. TECHNIQUE: Transabdominal TECHNICAL QUALITY: Adequate. FINDINGS: The fetus is in a breech presentation. There is demonstrated cardiac activity with a heart rate of 150 bpm. There is a normal amniotic fluid volume. The largest amniotic fluid pocket measures 3.1 cm x 3.6 cm. The amniotic fluid index (SCAR) is within normal limits. The placenta is posterior in location and is not low lying. There are Grade 1 placental changes. Age by LMP: 32 weeks, 0 days. RODRI by LMP: 06/04/2022. age by prior US: 32 weeks, 3 days. RODRI by prior US: 06/01/2022. BIOPHYSICAL PROFILE: Breathing Movements (FBM): 2 Gross Body Movements (GBM): 2 Tone (FT): 2 Amniotic Fluid Volume (AFV): 2 TOTAL SCORE: 8 / 8 IMPRESSION: Normal biophysical profile of 8. Electronically Signed: Kris Aguero MD at 9:42 EST , STUDY: OBSTETRICAL ULTRASOUND - BIOPHYSICAL PROFILE REASON FOR EXAM: Female, 31 years old wellbeing -- Twins- weekly at 32 weeks . twin B LMP: 08/28/2021 PRIOR ULTRASOUND: Comparison is made with prior study 03/21/2022 TECHNIQUE: Transabdominal TECHNICAL QUALITY: Adequate. FINDINGS: The fetus is in a cephalic presentation. There is demonstrated cardiac activity with a heart rate of 153 bpm. There is a normal amniotic fluid volume. The largest amniotic fluid pocket measures 3.9 cm x 4.2 cm. The amniotic fluid index (SCAR) is within normal limits. The placenta is anterior in location and is not low lying. There are Grade 1 placental changes. Age by LMP: 32 weeks, 0 days. RODRI by LMP: 06/04/2022. age by prior US: 31 weeks, 2 days. RODRI by prior US: 06/09/2022. BIOPHYSICAL PROFILE: Breathing Movements (FBM): 2 Gross Body Movements (GBM): 2 Tone (FT): 2 Amniotic Fluid Volume (AFV): 2 TOTAL SCORE: US/Biophysical Prof W/O Non Stres IMPRESSION: Normal biophysical profile of 12/31. Electronically Signed: Kris Aguero MD at 9:46 EST ,
== END | disposition home or self-care (01) ==
LOC: US 09:25
PROVIDERS: PCP Family Medicine; Visit Provider Obstetrics & Gynecology
DX: O30.003 Twin pregnancy, unspecified number of placenta and unspecified number of amniotic sacs, third trimester (principal); Z3A.32 32 weeks gestation of pregnancy
CPT/HCPCS: 76819

== ENCOUNTER → 2022-04-16 | Outpatient (CLI) | payer MEDICAID, SELFPAY ==
--- NOTE | 2022-04-16 09:17 | US_ITS ---
EXAM: US BIOPHYSICAL PROFILE WITHOUT NON-STRESS TESTING CLINICAL INDICATION: well being -- Twins TECHNIQUE: Real-time ultrasound of the maternal pelvis for biophysical profile evaluation with image documentation. This report was created using [employer] report generation technology. COMPARISON: None. FINDINGS: Twin A. Biophysical profile score is 8/8. BREATHING MOVEMENTS: Present. Score 2/2. GROSS BODY MOVEMENTS: Present. Score 2/2. TONE: Present. Score 2/2. QUALITATIVE AMNIOTIC FLUID VOLUME: Amniotic fluid volume is normal. Posterior placenta. PRESENTATION: On the maternal left in breech presentation with cardiac rate of 144 bpm. IMPRESSION: Normal biophysical profile score of twin A. Electronically Signed: Jayjay Chun MD at 15:25 EST , EXAM: US BIOPHYSICAL PROFILE WITHOUT NON-STRESS TESTING CLINICAL INDICATION: well being -- Twins TECHNIQUE: Real-time ultrasound of the maternal pelvis for biophysical profile evaluation with image documentation. This report was created using [employer] report generation technology. COMPARISON: None. FINDINGS: Twin B biophysical profile score is 8/8. BREATHING MOVEMENTS: Present. Score 2/2. GROSS BODY MOVEMENTS: Present. Score 2/2. TONE: Present. Score 2/2. QUALITATIVE AMNIOTIC FLUID VOLUME: Amniotic fluid index is normal. PRESENTATION: Cephalic presentation on the maternal right. PLACENTA: Anterior placenta with grade 2 maturity change. US/Biophysical Prof W/O Non Stres IMPRESSION: Twin B normal biophysical profile. Electronically Signed: Jayjay Chun MD at 15:27 EST ,
== END | disposition home or self-care (01) ==
LOC: US 09:15
PROVIDERS: PCP Family Medicine; Referring Provider Obstetrics & Gynecology; Visit Provider Obstetrics & Gynecology
DX: O30.049 Twin pregnancy, dichorionic/diamniotic, unspecified trimester (principal); O09.90 Supervision of high risk pregnancy, unspecified, unspecified trimester
CPT/HCPCS: 76819

== ENCOUNTER → 2022-04-23 | Outpatient (CLI) | payer MEDICAID, SELFPAY ==
--- NOTE | 2022-04-23 09:30 | US_ITS ---
STUDY: OBSTETRICAL ULTRASOUND - BIOPHYSICAL PROFILE REASON FOR EXAM: Female, 31 years old TWIN GESTATION, WELL BEING . Baby A LMP: 08/28/2021. PRIOR ULTRASOUND: Comparison is made with prior study 04/16/2022. TECHNIQUE: Transabdominal TECHNICAL QUALITY: Adequate. FINDINGS: There is a single intrauterine fetus. The fetus is in a breech presentation. There is demonstrated cardiac activity with a heart rate of 147 bpm. There is a normal amniotic fluid volume. The largest amniotic fluid pocket measures 4.8 cm x 4.5 cm. The amniotic fluid index (SCAR) is within normal limits. The placenta is posterior in location and is not low lying. There are Grade 3 placental changes. Age by LMP: 34 weeks, 0 days. RODRI by LMP: 06/04/2022. BIOPHYSICAL PROFILE: Breathing Movements (FBM): 2 Gross Body Movements (GBM): 2 Tone (FT): 2 Amniotic Fluid Volume (AFV): 2 TOTAL SCORE: 8 / 8 IMPRESSION: Normal biophysical profile of 88. Electronically Signed: Kris Aguero MD at 15:01 EST Reading Location ID and State: [address] [place] [address] , Service support , STUDY: OBSTETRICAL ULTRASOUND - BIOPHYSICAL PROFILE REASON FOR EXAM: Female, 31 years old TWIN GESTATION, WELL BEING . Baby B LMP: 08/28/2021 PRIOR ULTRASOUND: Comparison is made with prior study dated 04/16/2022. TECHNIQUE: Transabdominal TECHNICAL QUALITY: Adequate. FINDINGS: The fetus is in a cephalic presentation. There is demonstrated cardiac activity with a heart rate of 160 bpm. There is a normal amniotic fluid volume. The largest amniotic fluid pocket measures 6.7 cm x 5.8 cm. The amniotic fluid index (SCAR) is within normal limits. cm. The placenta is anterior in location and is not low lying. There are Grade 3 placental changes. BIOPHYSICAL PROFILE: Breathing Movements (FBM): 2 Gross Body Movements (GBM): 2 Tone (FT): 2 Amniotic Fluid Volume (AFV): 2 TOTAL SCORE: US/Biophysical Prof W/O Non Stres IMPRESSION: Normal biophysical profile of 12/31. Electronically Signed: Kris Aguero MD at 15:02 EST ,
[2022-04-23 11:56] LABS: T4 Free Direct 0.96 ng/dL (0.76-1.46)
[2022-04-23 11:57] LABS: Thyroid Stim Hormone (TSH) 4.63 uIU/mL (0.358-3.74)
== END | disposition home or self-care (01) ==
PROVIDERS: Obstetrics & Gynecology; PCP Family Medicine; Referring Provider Obstetrics & Gynecology; Visit Provider Obstetrics & Gynecology
DX: O30.003 Twin pregnancy, unspecified number of placenta and unspecified number of amniotic sacs, third trimester (principal); Z3A.34 34 weeks gestation of pregnancy; O99.283 Endocrine, nutritional and metabolic diseases complicating pregnancy, third trimester; E03.9 Hypothyroidism, unspecified
CPT/HCPCS: 36415; 76819; 84439; 84443

== ENCOUNTER → 2022-04-26 | Outpatient (CLI) | payer MEDICAID, SELFPAY ==
--- NOTE | 2022-04-26 10:51 | VDLE_ITS ---
Reason For Study: Swelling Procedure LEFT This is a venous duplex using B-mode, color GSV is normal. flow and spectral Doppler. CFV is compressible, spontaneous, phasic, Exam performed in department. competent, and demonstrates normal A preliminary report was called and/or faxed augmentation. to [facility]. FV is compressible, spontaneous, phasic, competent and demonstrates normal augmentation. POP V is compressible, spontaneous, phasic, competent and demonstrates normal augmentation. T/P Trunk is compressible. PTV is compressible. LT PerV is compressible. VL/Venous Duplex US, Unilateral Interpretation Summary There is no evidence of left lower extremity deep vein thrombosis. Left great s aphenous vein appears patent and compressible segmentally. Ordering Physician: Ami Chaudhari Referring Physician: Dee Stern Performed By: Betty Zavaleta RVT
== END | disposition home or self-care (01) ==
LOC: CVS 10:50
PROVIDERS: PCP Family Medicine; Visit Provider Obstetrics & Gynecology
DX: M79.89 Other specified soft tissue disorders (principal)
CPT/HCPCS: 93971

== ENCOUNTER → 2022-04-29 | Outpatient (CLI) | payer MEDICAID, SELFPAY | END | disposition home or self-care (01) | LOC: LABSPEC 16:12 | PROVIDERS: PCP Family Medicine; Referring Provider Obstetrics & Gynecology; Visit Provider Obstetrics & Gynecology | DX: Z34.90 Encounter for supervision of normal pregnancy, unspecified, unspecified trimester (principal) | CPT/HCPCS: 87081 ==

== ENCOUNTER → 2022-04-30 | Outpatient (CLI) | payer MEDICAID, SELFPAY ==
--- NOTE | 2022-04-30 09:18 | US_ITS ---
STUDY: OBSTETRICAL ULTRASOUND - BIOPHYSICAL PROFILE REASON FOR EXAM: Female, 31 years old well being -- twins . Twin A LMP: 08/28/2021. PRIOR ULTRASOUND: Comparison is made with prior study dated 04/23/2022. TECHNIQUE: Transabdominal TECHNICAL QUALITY: Adequate. FINDINGS: The fetus is in a breech presentation. There is demonstrated cardiac activity with a heart rate of 150 bpm. There is a normal amniotic fluid volume. The largest amniotic fluid pocket measures 9 cm. The amniotic fluid index (SCAR) is within normal limits. The placenta is posterior in location and is not low lying. There are Grade 3 placental changes. Age by LMP: 35 weeks, 0 days. RODRI by LMP: 06/04/2022. BIOPHYSICAL PROFILE: Breathing Movements (FBM): 2 Gross Body Movements (GBM): 2 Tone (FT): 2 Amniotic Fluid Volume (AFV): 2 TOTAL SCORE: 8 / 8 IMPRESSION: Normal biophysical profile of 8/8. Electronically Signed: Kris Aguero MD at 15:46 EST , STUDY: OBSTETRICAL ULTRASOUND - BIOPHYSICAL PROFILE REASON FOR EXAM: Female, 31 years old well being -- twins . Baby B LMP: 08/28/2021. PRIOR ULTRASOUND: Comparison is made with prior study 04/23/2022. TECHNIQUE: Transabdominal TECHNICAL QUALITY: Adequate. FINDINGS: The fetus is in a cephalic presentation. There is demonstrated cardiac activity with a heart rate of 140 bpm. There is a normal amniotic fluid volume. The largest amniotic fluid pocket measures 4.2 cm. The amniotic fluid index (SCAR) is with normal limitsthe placenta is anterior in location and is not low lying. There are Grade 3 placental changes. Age by LMP: 35 weeks, 0 days. RODRI by LMP: 06/04/2022. BIOPHYSICAL PROFILE: Breathing Movements (FBM): 2 Gross Body Movements (GBM): 2 Tone (FT): 2 Amniotic Fluid Volume (AFV): 2 TOTAL SCORE: US/Biophysical Prof W/O Non Stres IMPRESSION: Normal biophysical profile of 12/31. Electronically Signed: Kris Aguero MD at 15:48 EST ,
== END | disposition home or self-care (01) ==
LOC: US 09:16
PROVIDERS: PCP Family Medicine; Referring Provider Obstetrics & Gynecology; Visit Provider Obstetrics & Gynecology
DX: O30.043 Twin pregnancy, dichorionic/diamniotic, third trimester (principal); O99.810 Abnormal glucose complicating pregnancy
CPT/HCPCS: 76819

== ENCOUNTER 2022-05-06 15:50 | Outpatient (CLI) | payer MEDICAID, SELFPAY ==
[2022-05-06] VITALS (7 sets, daily range): BP systolic 117–140; BP diastolic 74–96; PULSE 73–86; TEMP 36.9; O2SAT 96–98; BMI 38.0
[2022-05-06 16:28] LABS: Protein:Creat Ratio 141 mg/g CRE (0-200)
[2022-05-06] MEDS: 0.9% Saline Lock 10 ML Syringe IV (16:28)
[2022-05-06] MEDS: Acetaminophen 500 MG Tablet 1000 MG PO (16:29)
[2022-05-06] MEDS: Betamethasone/Betamethasone 30 MG/5 ML Vial 12 MG IM (16:31)
[2022-05-06 16:38] LABS: Hematocrit 35.2 % (37-47); Hemoglobin 11.9 g/dL (12.0-15.0); Mean Corp Hgb Conc 33.8 g/dL (32-36); Mean Corpuscular Hgb 26.4 pg (27.0-32.0); Mean Platelet Vol. 11.8 fl (6.2-12.0); Platelet Count 197 K/mm3 (150-450); RBC Distribution Width CV 12.5 % (11.6-14.6); RBC Distribution Width SD 35.7 fl (35.1-43.9); Red Blood Count 4.51 M/mm3 (4.2-5.4); White Blood Count 10.8 K/mm3 (4.4-11.0)
[2022-05-06 16:49] LABS: International Normalized Ratio 0.9; Prothrombin Time (Protime)PT. 11.8 SECONDS (11.7-14.9)
[2022-05-06 16:50] LABS: Partial Thromboplast Time 25.7 Seconds (24.1-36.2)
[2022-05-06 16:52] LABS: AST(SGOT) 14 U/L (15-37); Alanine Aminotransfer ALT/SGPT 12 U/L (13-56); Creatinine, Serum 0.68 mg/dL (0.55-1.02); EST Glomerular Filtration Rate 108 mL/min (>60); Est Glom Filt Rate - Afr Amer 130 mL/min (>60); Estimated Creatinine Clearance 135.21 ml/min; Uric Acid 6.6 mg/dL (2.6-6.0)
--- NOTE | 2022-05-07 15:25 | OB.TRI.PN_ITS ---
Progress Notes Date of Service: 05/06/22 Progress Note: Patient presents for triage evaluation secondary to elevated bps FHT: A 140 Moderate variability reactive no decelerations category I tracing B 145 Moderate variability reactive no decelerations category I tracing [place]: no regular Contractions Assessment and plan: DANIELETMarlena monzonestone given labs reveiwed plan delivery tomorrow Reactive NST, reassuring maternal and status patient discharged to home to follow-up tomorrow for delivery. See problem list details for additional plan information. Laboratory Studies: Laboratory Tests 05/06/22 05/06/22 05/06/22 Range/Units Unknown 16:28 16:28 WBC (4.4-11.0) K/mm3 RBC (4.2-5.4) M/mm3 Hgb (12.0-15.0) g/dL Hct (37-47) % MCV (81-99) fL MCH (27.0-32.0) pg MCHC (32-36) g/dL RDW Std Deviation (35.1-43.9) fl RDW Coeff of Duyen (11.6-14.6) % Plt Count (150-450) K/mm3 MPV (6.2-12.0) fl PT 11.8 (11.7-14.9) SECONDS INR 0.9 APTT 25.7 (24.1-36.2) Seconds Creatinine 0.68 (0.55-1.02) mg/dL Estim Creat Clear Calc 135.21 ml/min Est GFR (MDRD) Af Amer 130 (>60) mL/min Est GFR (MDRD) Non-Af 108 (>60) mL/min Uric Acid 6.6 H (2.6-6.0) mg/dL AST 14 L (15-37) U/L ALT 12 L (13-56) U/L U Random Total Protein 31.0 H (<11.9) mg/dL Urine Creatinine 220.00 (NO RANGE EST.) mg/dL Protein/Creatinin Ratio 141 (0-200) mg/g CRE 05/06/22 Range/Units 16:28 WBC 10.8 (4.4-11.0) K/mm3 RBC 4.51 (4.2-5.4) M/mm3 Hgb 11.9 L (12.0-15.0) g/dL Hct 35.2 L (37-47) % MCV 78.0 L (81-99) fL MCH 26.4 L (27.0-32.0) pg MCHC 33.8 (32-36) g/dL RDW Std Deviation 35.7 (35.1-43.9) fl RDW Coeff of Duyen 12.5 (11.6-14.6) % Plt Count 197 (150-450) K/mm3 MPV 11.8 (6.2-12.0) fl PT (11.7-14.9) SECONDS INR APTT (24.1-36.2) Seconds Creatinine (0.55-1.02) mg/dL Estim Creat Clear Calc ml/min Est GFR (MDRD) Af Amer (>60) mL/min Est GFR (MDRD) Non-Af (>60) mL/min Uric Acid (2.6-6.0) mg/dL AST (15-37) U/L ALT (13-56) U/L U Random Total Protein (<11.9) mg/dL Urine Creatinine (NO RANGE EST.) mg/dL Protein/Creatinin Ratio (0-200) mg/g CRE Charges/Coding Procedures Urinary/Genital [id number]: [id number] non-stress test Interp
== END 2022-05-06 17:30 | disposition home or self-care (01) ==
LOC: WPOUT 15:52 → WP 15:52
PROVIDERS: Obstetrics & Gynecology; PCP Family Medicine; Visit Provider Registered Nurse
DX: O16.9 Unspecified maternal hypertension, unspecified trimester (principal)
CPT/HCPCS: 59050 ×2; 82570; 84450; G0378 ×2; 84550; 84156; 84460; 85027; 36415; 59025; 85610; 85730; 82565; 99218; A4216; J0702

== ENCOUNTER 2022-05-07 04:47 | Inpatient (IN) | payer MEDICAID, SELFPAY ==
[2022-05-02] MEDS: Senna/Docusate Sodium 1 Tablet PO (09:45)
[2022-05-07] VITALS (21 sets, daily range): BP systolic 107–168; BP diastolic 51–103; PULSE 66–112; RESP 15–20; TEMP 36.1–37.2; O2SAT 96–99; BMI 38.2
[2022-05-07] MEDS: Lactated Ringers 1,000 ML 999 ML IV (05:15)
[2022-05-07 05:38] LABS: Absolute Lymphocyte Count 1.81 X10^3/uL (0.83-4.51); Absolute Neutrophil Count 12.7 X10^3/uL (2.0-7.7); Basophil# 0.03 X10^3/uL; Basophil% 0.2 % (0-1); Hematocrit 35.6 % (37-47); Hemoglobin 12.1 g/dL (12.0-15.0); Lymphocyte # 1.81 X10^3/ul (0.83-4.51); Lymphocyte % 11.8 % (19-41); Mean Corpuscular Hgb 26.5 pg (27.0-32.0); Mean Corpuscular Volume 77.9 fL (81-99); Mean Platelet Vol. 12.5 fl (6.2-12.0); Monocyte# 0.72 X10^3/uL; Monocyte% 4.7 % (0-10); NRBC Flagged by Analyzer 0 % (0-5); Neutrophil # 12.72 X10^3/uL (2.7-7.7); Neutrophil % 82.8 % (47-70); Platelet Count 214 K/mm3 (150-450); RBC Distribution Width CV 12.5 % (11.6-14.6); RBC Distribution Width SD 35.1 fl (35.1-43.9); Red Blood Count 4.57 M/mm3 (4.2-5.4); White Blood Count 15.4 K/mm3 (4.4-11.0)
[2022-05-07] MEDS: Acetaminophen 500 MG Tablet 1000 MG PO ×3 (05:59→18:14)
[2022-05-07] MEDS: Lactated Ringers 1,000 ML 150 ML IV (06:17)
[2022-05-07 06:31] LABS: ALB/GLOB Ratio 0.6 RATIO (0.9-2.4); AST(SGOT) 15 U/L (15-37); Alanine Aminotransfer ALT/SGPT 13 U/L (13-56); Albumin, Serum 2.3 g/dL (3.2-5.0); Alkaline Phosphatase 193 U/L (45-117); Anion Gap 10 (5-15); BUN 7 mg/dL (7-18); BUN/Creat Ratio 9.2 RATIO (10-20); Calcium,Total 8.8 mg/dL (8.5-10.1); Chloride 108 mmol/L (98-107); Creatinine, Serum 0.76 mg/dL (0.55-1.02); EST Glomerular Filtration Rate 94 mL/min (>60); Est Glom Filt Rate - Afr Amer 114 mL/min (>60); Estimated Creatinine Clearance 120.98 ml/min; Glucose 116 mg/dL (74-106); Potassium 3.7 mmol/L (3.5-5.1); Protein, Total 6.3 g/dL (6.4-8.2); Sodium Level 137 mmol/L (136-145)
[2022-05-07] MEDS: Sodium Citrate/Citric Acid 30 ML UDC PO (06:54)
--- NOTE | 2022-05-07 07:30 | FALS_PTH ---
PATIENT: MARIBELL GARCIA LOC: [facility] U#:[id number] AGE/SX: 31/F ROOM: [facility] RE05/07/[address]: Dr. Ami Chaudhari MD : 1990 BED: 1 DIS: 05/09/2022 SPEC #: [id number] RECD: 05/07/22 09:17 STATUS: SEAN BLEVINS #: [id number] BRENDA: 05/07/22 07:[address]: Ami Chaudhari DEPT: SURGICAL PATHOLOGY RECD BY: Tyesha Jacobs ENTERED: 05/07/22 10:02 SP TYPE: FALL TUBES OTHR DR: Dr. Dee Stern MD Tissues: A - Fallopian tube B - Placenta, NOS Procedures: Surgery Specimen Level II Surgery Specimen Level V HEADER OPERATION: Tubal ligation, repeat section PRE-OP DIAGNOSIS: Sterilization, twin delivery TISSUE SUBMITTED: A - Fallopian tubes, suture in left, B - Placenta MICROSCOPIC DIAGNOSIS A. Bilateral fallopian tubes, salpingectomy: Bilateral fallopian tubes, no pathologic diagnosis. B. Twin placenta: Dichorionic and diamniotic twin placenta. Placenta A ? Placental disc - third trimester placenta (401 gm). - Focal mild increased calcifications. Membranes ? circummarginate insertion. Umbilical cord - three blood vessels and no pathologic diagnosis. Placenta B ? Placental disc - third trimester placenta (410 gm). - Focal mild increased calcifications. Membranes ? circummarginate insertion. Umbilical cord - three blood vessels and no pathologic diagnosis. SJ:kelly 05/09/2022 MICROSCOPIC DESCRIPTION Slides are reviewed. GROSS DESCRIPTION A - Received in fixative is one container labeled with the patient's name and designated bilateral fallopian tubes, left tube with stitch. The specimen consists of bilateral fallopian tubes including fimbrial ends. The right fallopian tube measures 7 cm in length and up to 0.8 cm in diameter and left fallopian tube measures 6.5 cm in length and 0.7 cm in diameter. Sections reveal unremarkable cut surfaces. Aquatic Performer sections are submitted in two cassettes as follows: 1 - right fallopian tube, 2 - left fallopian tube. / SJ:kelly 05/07/2022 B - SPECIMEN: TWIN PLACENTA The specimen consists of two separate placentas and two membranes and umbilical cord. One of the cords show a clamp identified as twin A. Dividing membranous septum is not seen in either of the placentas. / CLINICAL INFORMATION: A. Weight: A ? 2.4 kg; B ? 2.285 kg B. Gestational Age: 36 weeks C. Sex: A ? Male, B - Female PLACENTA A: (with clamp) PLACENTAL WEIGHT (POST FIXATION): 401 gm PLACENTAL DIMENSIONS: 19 x 15 x 3 cm PLACENTAL SHAPE: Usual ovoid PLACENTAL WEIGHT FOR GESTATIONAL AGE: Within 10-99th percentile MEMBRANES - Present A. Insertion: One-third circumference of the placenta 2 cm away from the margin B. Site of rupture from edge: At edge of placental disc C. Color of membrane: Root-perry D. Abnormalities: None UMBILICAL CORD - Present A. Color: Root-perry B. Insertion: Paracentral C. Length: 38 cm D. Diameter: 1 cm E. Number of vessels: Three F. Abnormalities: None PLACENTA B: PLACENTAL WEIGHT (POST FIXATION): 410 gm PLACENTAL DIMENSIONS: 17 x 16 x 3 cm PLACENTAL SHAPE: Usual ovoid PLACENTAL WEIGHT FOR GESTATIONAL AGE: Within 10-99th percentile MEMBRANES - Present A. Insertion: Marginal, focally inserted one-fourth of the circumference of the placenta 2 cm away from the margin. B. Site of rupture from edge: At edge of placental disc C. Color of membrane: Root-perry D. Abnormalities: None UMBILICAL CORD - Present A. Color: Root-perry B. Insertion: Marginal C. Length: 28 cm D. Diameter: 1.5 cm E. Number of vessels: Three F. Abnormalities: None PLACENTAL DISC - Present A. Color of surface: Root-perry B. surface abnormalities: None C. Maternal cotyledons: Intact with minimal tears D. Attached retro placental clot: No clot E. Cut surface: Dark red and spongy F. Lesions: None G. Separate clot: Absent SECTIONS SUBMITTED: 11 cassettes 1-6 - placenta A (1 - membrane roll, 2 - umbilical cord, maternal end and insertion of membrane away from the margin, 3 - umbilical cord end and insertion of membrane away from margin, 4-6 - body of the placenta including maternal and surfaces), 7-11 - placenta B (7 - membrane roll, 8 - umbilical cord, end inked black, insertion of membrane away from the margin, 9-11 - body of the placenta including maternal and surfaces). SJ:kelly 05/08/2022 TC:5 CPT: 07563 x2, 26110 x2
[2022-05-07] MEDS: Ketorolac 30 MG/ML Syringe IV ×3 (08:54→21:27)
[2022-05-07] MEDS: Oxytocin 15 Units/NS 250ml 15 UNITS/250 ML IV.SOLN 83 UNITS IV (09:17)
[2022-05-07 09:19] LABS: Pathology Specimen OB SEE PATHOLOGY REPORT
[2022-05-07] MEDS: HYDROmorphone 1 MG/ML Syringe IV (09:50)
[2022-05-07] MEDS: Lactated Ringers 1,000 ML 100 ML IV (11:23)
[2022-05-07] MEDS: oxyCODONE 5 MG Tablet PO ×3 (12:57→21:09)
[2022-05-07 13:21] LABS: Pathology Specimen OB SEE PATHOLOGY REPORT
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
--- NOTE | 2022-05-07 14:49 | OP.PCM_ITS ---
Assessment & Plan (1) LGSIL on Pap smear of cervix: COMMENT: colp 07/15, repeat pap in 2020. 2017 and 2019: [facility], records scanned (2) Hypothyroid: QUALIFIERS: Hypothyroidism type: acquired Qualified Code(s): E03.9 - Hypothyroidism, unspecified COMMENT: follows with PCP; check Q trimester, 04/23 TSH elevated. Repeat in 6-8 weeks. (3) DVT of lower extremity (deep venous thrombosis): QUALIFIERS: Affected thrombotic vein of extremity: unspecified vein of extremity Chronicity: acute Laterality: right Qualified Code(s): I82.401 - Acute embolism and thrombosis of unspecified deep veins of right lower extremity COMMENT: 03/2020 right lower:was on anovera. No other preciptating factors. Will need lovenox 40mg daily with and 6 wk pp, testing 1x wkly/kick counts starting at 32 wks (4) Supervision of high risk , antepartum: COMMENT: PRR RODRI:06/04/22 boy ramy girl Antonella PC:Abbi Fiance:Atif (5) : QUALIFIERS: Weeks of gestation: 35 weeks Qualified Code(s): Z3A.35 - 35 weeks gestation of COMMENT: GBS Negative,anatomy nl, carrier negative, NT baby B 1.6mm, Baby A not able to obtain. (6) Family history of cleft palate: COMMENT: daughter (7) Family history of congenital heart defect: COMMENT: daughter, no surgery. (8) Family history of Down syndrome: COMMENT: nephew (9) Family history of Alatorre syndrome: COMMENT: daughter:has had >30 surgeries, born at 34 wk. Doing well (10) History of section, classical: COMMENT: emergent at 34 wk/[place]. Sign ROR at NOB appt R C/S. Deliver at 36 weeks per M, RLTSC BS scheduled for 05/09 @ 12 with (11) Dichorionic diamniotic twin : QUALIFIERS: Trimester: third trimester Qualified Code(s): O30.043 - Twin , dichorionic/diamniotic, third trimester COMMENT: 2146g and 2246g on 04/25. 3% discordance. . Fraternal twins per NIPT. growth scans every 4 weeks to screen for FGR. Weekly BPP after 32 weeks. 02/21 growth nl, 03/25 nl growth 40% & 51% 7.7% discordance, 04/11 Nl BPP. 04/23 nl BPP. 04/30 nl BPP. (12) Abnormal glucose level: COMMENT: 3 Hr GTT, 03/07 GTT WNL. (13) delivery delivered: COMMENT: RLTCS BS gillian mccann SM 36 GHTN (14) Gestational hypertension: (15) Status post bilateral salpingectomy: Maternal Data Information RODRI Calculator Estimated Delivery Date Method Current WG Current Estimate 06/04/22 LMP (Certain) 36w 0d Other Estimates 06/05/22 Ultrasound #1 35w 6d # 2 Final RODRI Source: LMP Details Operative Information Date of Procedure: 05/07/22 Pre-Operative Diagnosis: Previous Post-Operative Diagnosis: same Indications for : Repeat Elective and Desires elective steri lization Classification: Scheduled Procedure Type: low transverse (and BS) Type of Anesthesia: Spinal Special Medications: none Antibiotic Given: Ancef 3 grams IV x1 Drain: Ramos to straight drain Estimated Blood Loss: 900 Fluids Replaced: crystalloid Findings Description of Procedure: Spinal anesthesia was placed without difficulty. Ramos catheter was placed. The patient was placed in the dorsal supine position with leftward tilt. Patient was prepped and draped in the normal sterile fashion. Pfannenstiel skin incision was made with the scalpel and carried through to the underlying layer of fascia with the scalpel. Fascia was nicked in the midline and the incision extended laterally. The rectus bellies were dissected off superiorly and inferiorly with out complication both sharply and bluntly. The peritoneum was entered digitally. The incision was stretched and a low transverse uterine incision was made with the scalpel. membranes ruptured and the buttox delivered followed by legs arms and head easily. nuchal x 2 reduced. cord clamped and cut after 30 sec delayed. next membranes 2 ruptured. The infant's head was delivered atraumatically followed by the anterior and posterior shoulders without complication the rest of the infant delivered. The cord was clamped and cut and the infant was handed off to awaiting nurse. The placenta was delivered spontaneously immediately following and was noted to be intact and have a three- vessel cord. The uterus was exteriorized cleared of all clots and debris, and the incision was closed in a single layer closure using #1 Monocryl. The ovaries and fallopian tubes were noted to be within normal limits. Patient had desired sterilization and was counseled preoperatively regarding irreversibility and permanency. Therefore bilateral fallopian tubes were elevated and transected across using a LigaSure device starting proximally to distally without complication the entire fallopian tubes were removed. The uterus was returned to the maternal abdomen and gutters were cleared of all clots and debris. The peritoneum was closed with 3-0 Monocryl in a running fashion. Gloves were changed prior to fascial closure. Fascia was closed with 0 PDS in a running fashion. Subcutaneous tissue was copiously irrigated and the skin was closed with 3-0 Monocryl in a subcuticular fashion. Mepilex dressing was applied without complication. Patient was taken to recovery in stable condition. Amniotic Membrane Rupture Type: Artificial Amniotic Fluid Description: Clear Placenta Disposition: [facility] Cord Vessel Description: 3 Vessels Cord Entanglement: None Delayed Cord Clamping: Yes Complications Risks of Surgery Discussed w/Patient: Bleeding, Infection, Need for Future C- Sections and Injury to surrounding structure(s) including bowel and bladder Vaginal Delivery Complication Complications: None Admit VTE Documentation VTE Present on Admission: No VTE Mechan Device Prophylaxis: SCD's Multi Select Codes Urinary/Genital Urinary/Genital CPT Codes: 91784 C/S+TL [place] 24210 Vaginal Delivery+ PP Care(BON) (twins)
--- NOTE | 2022-05-07 14:54 | DCINST_ITS ---
Discharge Instructions Diet Discharge Diet: No restrictions Activity Discharge Activity: Return to Normal Activity, May Drive (when pain free and off narcotic pain meds), May Shower and May Take a Tub Bath (in 4 weeks) May resume sexual activity in: 6 weeks Weight Bearing Status: Full weight bearing Lifting Restrictions: under 30 lbs for 6 weeks Dressing / Incision Call your doctor if your incision/area has: Continuous Slow Oozing, Sudden Increased Bleeding, Increased Pain/ Swelling, Increased Redness, Foul Smelling Discharge and - Call your doctor if you observe: Fever of 101 or Higher, Using more than 1 pad per hour, Shortness of breath, Chest pain and Uncontrolled pain Suture Line Care: Avoid Pulling/Pushing and Avoid Pinching/Bending Change Dressing in: 1 week (leave open to air after removed) Remove Dressing in: 1 week (if present) Cleanse incision/area with: Soap & Water and Keep Dressing Clean & Dry Follow Up Care Please Follow Up With: Ami Chaudhari MD When: Call to make an appointment with your doctor for a postop visit in 2 and 6 weeks. Test Results: Test results from this visit will be discussed in further detail at your follow- up appointment, if applicable. Discharge Plan Admission Admit Date/Time: 05/07/22 04:47 Attending Provider: Ami Chaudhari Primary Care Provider: Dee Stern Discharge Orders/Prescriptions Prescriptions: New oxycodone-acetaminophen [Percocet] 5-325 mg tablet 1 tab PO Q6H PRN (Reason: pain) 7 Days Qty: 20 0RF Continued DHA 200 mg capsule 200 mg PO DAILY levothyroxine 50 MCG tablet 50 mcg PO DAILY famotidine [Pepcid] 20 mg Tablet 20 mg PO DAILY enoxaparin 40 mg/0.4 mL syringe See Rx Instructions .ROUTE .COMPLEX 42 Days Qty: 4 0RF Rx Instructions: INJECT THE CONTENTS OF 1 SYRINGE SUBCUTANEOUSLY ONCE DAILY Referrals / Follow Up: Dee Stern MD [Primary Care Provider] - Disposition Disposition (needs filled in before D/C Order can be placed): Home, Self Care
[2022-05-07] MEDS: Enoxaparin 40 MG/0.4 ML Syringe SC (19:57)
[2022-05-07] MEDS: 0.9% Saline Lock 10 ML Syringe IV (21:27)
[2022-05-08] MEDS: Acetaminophen 500 MG Tablet 1000 MG PO ×4 (00:15→18:21)
[2022-05-08] MEDS: HYDROmorphone 1 MG/ML Syringe IV ×3 (00:22→06:51)
[2022-05-08] MEDS: 0.9% Saline Lock 10 ML Syringe IV ×3 (00:22→10:02)
[2022-05-08 00:42] VITALS: BP 123/85; PULSE 78; RESP 16; TEMP 36.9
[2022-05-08] MEDS: oxyCODONE 5 MG Tablet PO ×6 (01:11→22:35)
--- NOTE | 2022-05-08 03:07 | NURSING ---
at 0045, pt tried to get up and use the restroom. When pt sat on toilet, an egg sized clot fell into the hat, pt stated she felt fine and VS WNL. fundus was firm at U. When pt up to void at 0245, bleeding was small and no clots were noted.
[2022-05-08] MEDS: Ketorolac 30 MG/ML Syringe IV (03:45)
[2022-05-08 05:00] VITALS: BP 140/70; PULSE 73; RESP 17; TEMP 36.6; O2SAT 98
[2022-05-08 05:25] LABS: Hematocrit 28.6 % (37-47); Hemoglobin 9.1 g/dL (12.0-15.0); Mean Corp Hgb Conc 31.8 g/dL (32-36); Mean Corpuscular Hgb 25.7 pg (27.0-32.0); Mean Corpuscular Volume 80.8 fL (81-99); Mean Platelet Vol. 12.1 fl (6.2-12.0); Platelet Count 165 K/mm3 (150-450); RBC Distribution Width CV 12.7 % (11.6-14.6); RBC Distribution Width SD 37.2 fl (35.1-43.9); Red Blood Count 3.54 M/mm3 (4.2-5.4); White Blood Count 14.2 K/mm3 (4.4-11.0)
--- NOTE | 2022-05-08 05:51 | NURSING ---
Around 0500, pt was situating herself in bed when all of a sudden she became hot and nauseas and felt as if she was going to puke. She gagged a few times while I handed her a green emesis bag but then didnt puke and felt better. She said she thinks it keeps coming and going because of her pain.
[2022-05-08] MEDS: Levothyroxine 50 MCG Tablet PO (06:20)
--- NOTE | 2022-05-08 09:05 | PCM.PN.OB ---
Subjective Subjective Patient doing well without complaints. Tolerating PO. pain managed with PO medications. Ambulating and voiding without difficulty. Feeding well. Denies chest pain, shortness of breath, calf pain/swelling, fevers, chills, lightheadedness. Objective Data Objective Data Vital Signs: Vital Signs Temp Pulse Resp BP Pulse Ox O2 Del Method 98.1 F 67 16 121/72 H 98 Room Air 05/08/22 08:48 05/08/22 08:48 05/08/22 08:48 05/08/22 08:48 05/08/22 05:00 05/08/22 08:48 Oxygen Delivery Method Room Air Weight: 274 lb Body Mass Index (BMI) 38.2 Intake & Output: Intake and Output for Last 24 Hours 05/06/22 05/07/22 05/08/22 23:59 23:59 23:59 Intake Total 3858.73 / 3858.73 Output Total 1750 / 1750 150 / 150 Balance 2108.73 / 2108.73 -150 / -150 Lab / Micro Data Attestation: I reviewed the patient's lab results. Result Diagrams: 05/08/22 05:15 05/07/22 05:15 Labs: Laboratory Results - last 24 hr 05/08/22 05:15: WBC 14.2 H, RBC 3.54 L, Hgb 9.1 L, Hct 28.6 L, MCV 80.8 L, MCH 25.7 L, MCHC 31.8 L D, RDW Std Deviation 37.2, RDW Coeff of Duyen 12.7, Plt Count 165, MPV 12.1 H ROS Constitutional Constitutional: Reports as per HPI Respiratory/Chest Respiratory/Chest: Reports as per HPI Gastrointestinal Gastrointestinal: Reports as per HPI Genitourinary Genitourinary: Reports as per HPI Musculoskeletal Musculoskeletal: Reports as per HPI Neurologic Neurologic: Reports none Psychiatric Psychiatric: Reports none Physical Exam Const alert, oriented x3 and no apparent distress Neck full ROM Chest inspection of chest normal Resp Effort and Inspection: able to speak in complete sentences GI GI Narrative: fundus firm at U, no clots, mild lochia rubra. Assessment & Plan (1) Status post bilateral salpingectomy: (2) delivery delivered: COMMENT: RLTCS BS gillian mccann SM 36 GHTN (3) Gestational hypertension: PLAN: Plan s/p LTCS PPD # 1 1. routine post care 2. breast feeding- support given 3. rh positive 4. rubella immune
[2022-05-08 09:15] VITALS: BP 134/76; PULSE 66; RESP 16; TEMP 36.7; O2SAT 97
[2022-05-08] MEDS: Enoxaparin 40 MG/0.4 ML Syringe SC ×2 (10:02→22:36)
[2022-05-08] MEDS: Ondansetron 4 MG/2 ML Vial IV (10:03)
[2022-05-08] MEDS: Senna/Docusate Sodium 1 Tablet PO (10:03)
[2022-05-08] MEDS: Naproxen 250 MG Tablet 500 MG PO ×2 (10:27→16:22)
--- NOTE | 2022-05-08 12:31 | NURSING ---
Pt missed hat, void completed and pt felt like she emptied bladder completely.
[2022-05-08 14:14] VITALS: BP 118/73; PULSE 67; RESP 16; TEMP 36.7; O2SAT 96
--- NOTE | 2022-05-08 17:49 | NURSING ---
Reviewed and agreed with Leia CLAY.
--- NOTE | 2022-05-08 18:10 | NURSING ---
Reviewed and agreed with Leia CLAY charting.
[2022-05-08 20:16] VITALS: BP 141/81; PULSE 65; RESP 18; TEMP 36.5; O2SAT 98
[2022-05-08] MEDS: Ondansetron 8 MG Tablet 4 MG PO (21:06)
[2022-05-09] MEDS: Acetaminophen 500 MG Tablet 1000 MG PO ×3 (00:18→11:56)
[2022-05-09] MEDS: Naproxen 500 MG Tablet PO ×2 (01:17→09:45)
[2022-05-09 01:18] VITALS: BP 124/72; PULSE 77; RESP 18
[2022-05-09] MEDS: Levothyroxine 50 MCG Tablet PO (05:24)
[2022-05-09] MEDS: oxyCODONE 5 MG Tablet PO ×3 (05:31→11:57)
--- NOTE | 2022-05-09 07:24 | PN.OBGYN_ITS ---
Subjective Subjective Patient doing well without complaints. Tolerating PO. Ambulating and voiding without difficulty. feeding well. Denies chest pain, shortness of breath, calf pain/swelling, fevers, chills, lightheadedness. Objective Data Objective Data Vital Signs: Vital Signs Temp Pulse Resp BP Pulse Ox O2 Del Method 97.7 F L 77 18 124/72 H 98 Room Air 05/08/22 20:16 05/09/22 01:18 05/09/22 01:18 05/09/22 01:18 05/08/22 20:16 05/09/22 01:18 Oxygen Delivery Method Room Air Weight: 124.284 kg Body Mass Index (BMI) 38.2 Intake & Output: Intake and Output for Last 24 Hours 05/07/22 05/08/22 05/09/22 23:59 23:59 23:59 Intake Total 3858.73 / 3858.73 Output Total 1750 / 1750 300 / 300 Balance 2108.73 / 2108.73 -300 / -300 Lab / Micro Data Result Diagrams: 05/08/22 05:15 05/07/22 05:15 ROS Constitutional Constitutional: Reports systems reviewed and no addt'l complaints, except as documented Cardiovascular Cardiovascular: Reports systems reviewed and no addt'l complaints, except as documented Respiratory/Chest Respiratory/Chest: Reports systems reviewed and no addt'l complaints, except as documented Gastrointestinal Gastrointestinal: Reports systems reviewed and no addt'l complaints, except as documented Physical Exam Const alert, oriented x3 and no apparent distress HEENT Head and Scalp: atraumatic Resp normal respiratory effort GI soft to palpation and non-tender Inspection: incision intact, healing well and drainage (none) Bimanual Exam - Vag & Uterus: uterus non-tender Uterus Palpation: uterus fundus firm (below Umbilicus) Assessment & Plan (1) DVT of lower extremity (deep venous thrombosis): QUALIFIERS: Affected thrombotic vein of extremity: unspecified vein of extremity Chronicity: acute Laterality: right Qualified Code(s): I82.401 - Acute embolism and thrombosis of unspecified deep veins of right lower extremity COMMENT: 03/2020 right lower:was on anovera. No other preciptating factor s. Will need lovenox 40mg daily with and 6 wk pp, testing 1x wkly/kick counts starting at 32 wks (2) Status post bilateral salpingectomy: PLAN: Plan s/p LTCS PPD # 2 1. routine post care 2. breast feeding- support given 3. rh positive 4. rubella immune
--- NOTE | 2022-05-09 07:25 | DS.PCM_ITS ---
Providers Date of Admission: 05/07/22 Primary Care Physician: Dr. Dee Stern MD Reason For Visit: C SECTION/CSECTION DELIVERY Diagnosis Discharge Diagnosis (1) DVT of lower extremity (deep venous thrombosis): Status: Acute Code(s): I82.409 - Acute embolism and thrombosis of unspecified deep veins of unspecified lower extremity Qualifiers: Affected thrombotic vein of extremity: unspecified vein of extremity Chronicity: acute Laterality: right Qualified Code(s): I82.401 - Acute embolism and thrombosis of unspecified deep veins of right lower extremity (2) Status post bilateral salpingectomy: Status: Acute Code(s): Z90.79 - Acquired absence of other genital organ(s) Plan s/p LTCS PPD # 2 1. routine post care 2. breast feeding- support given 3. rh positive 4. rubella immune Medications at Discharge Home Medications levothyroxine 50 mcg tablet 50 mcg PO DAILY Check with primary doctor 04/16/20 docosahexaenoic acid 200 mg capsule ( DHA) 200 mg PO DAILY 06/18/21 enoxaparin 40 mg/0.4 mL subcutaneous syringe See Rx Instructions .Route .COMPLEX Check with primary doctor 42 days #4 mL 05/07/22 famotidine 20 mg tablet (Pepcid) 20 mg PO DAILY heartburn 05/07/22 oxycodone-acetaminophen 5 mg-325 mg tablet (Percocet) 1 tab PO Q6H PRN pain 7 days #20 tabs 05/07/22 Hospital Course Summary of Care Provided Hospital Course: patient presented for [facility] and had an uncomplicated delivery. Postoperatively patient had return of bowel and bladder function and was ambulating well, tolerating adequate p.o., and was stable for discharge to home on postop day #2. Discharge medications naproxen and Percocet. Follow-up in office in 2 weeks for incision check in 6 weeks for visit. Routine post section diet and activity instructions. Weight / BMI Weight Weight: 124.284 kg Body Mass Index (BMI) 38.2 ABG / Lab / Microbiology Data Result Diagrams: 05/08/22 05:15 05/07/22 05:15 D/C Instructions Discharge Diet: No restrictions Discharge Activity: May Not Drive (for 2 weeks or while taking narcotic pain medications.), May Shower and May Take a Tub Bath (in 7 days) May shower in (days): 0 May resume sexual activity in: 6 weeks Weight Bearing Status: Full weight bearing Call your doctor if your incision/area has: Continuous Slow Oozing, Sudden Increased Bleeding, Increased Pain/ Swelling, Increased Redness, Foul Smelling Discharge and - Call your doctor if you observe: Fever of 101 or Higher, Using more than 1 pad per hour, Shortness of breath, Chest pain and Uncontrolled pain Suture Line Care: Avoid Pulling/Pushing and Avoid Pinching/Bending Cleanse incision/area with: Soap & Water and Keep Dressing Clean & Dry Please Follow Up With: Ami Chaudhari MD When: Call to make an appointment with your doctor for a postop visit in 2 and 6 weeks. Meaningful Use Info Meaningful Use Diagnoses (Choose all that apply): None applicable Discharge Plan Admission Admit Date/Time: 05/07/22 04:47 Attending Provider: Ami Chaudhari Primary Care Provider: Dee Stern Discharge Orders/Prescriptions Prescriptions: New oxycodone-acetaminophen [Percocet] 5-325 mg tablet 1 tab PO Q6H PRN (Reason: pain) 7 Days Qty: 20 0RF Continued DHA 200 mg capsule 200 mg PO DAILY levothyroxine 50 MCG tablet 50 mcg PO DAILY famotidine [Pepcid] 20 mg Tablet 20 mg PO DAILY enoxaparin 40 mg/0.4 mL syringe See Rx Instructions .ROUTE .COMPLEX 42 Days Qty: 4 0RF Rx Instructions: INJECT THE CONTENTS OF 1 SYRINGE SUBCUTANEOUSLY ONCE DAILY Referrals / Follow Up: Dee Stern MD [Primary Care Provider] - Disposition Disposition (needs filled in before D/C Order can be placed): Home, Self Care
[2022-05-09 08:25] VITALS: BP 148/86; PULSE 80; RESP 16; TEMP 36.9; O2SAT 98
[2022-05-09] MEDS: Enoxaparin 40 MG/0.4 ML Syringe SC (09:46)
[2022-05-09 12:01] VITALS: BP 140/82; PULSE 82; RESP 16; TEMP 36.6; O2SAT 98
== END 2022-05-09 12:15 | disposition home or self-care (01) | DRG 539 ==
PROVIDERS: Admitting Provider Obstetrics & Gynecology; PCP Family Medicine; Visit Provider Obstetrics & Gynecology
PROC: 10D00Z1 Extraction of Products of Conception, Low, Open Approach (ICD-10-PCS; CPT 59514; principal; 2022-05-07 06:55)
DX: O30.043 Twin pregnancy, dichorionic/diamniotic, third trimester (principal); Z37.2 Twins, both liveborn; E03.9 Hypothyroidism, unspecified; O13.4 Gestational [pregnancy-induced] hypertension without significant proteinuria, complicating childbirth; O69.81X0 Labor and delivery complicated by cord around neck, without compression, not applicable or unspecified; Z30.2 Encounter for sterilization; O34.212 Maternal care for vertical scar from previous cesarean delivery; O99.284 Endocrine, nutritional and metabolic diseases complicating childbirth; Z79.01 Long term (current) use of anticoagulants; Z3A.35 35 weeks gestation of pregnancy
CPT/HCPCS: 36415; 59025; 59050; 80053; 82565; 82570; 84156; 84450; 84460; 84550; 85025; 85027; 85610; 85730; 86850; 86900; 86901; 88302; 88307; 99218; J7120; A4216; G0378; J0702; J2405

== ENCOUNTER 2022-05-12 14:20 | Outpatient (CLI) | payer MEDICAID, SELFPAY ==
[2022-05-12 14:28] VITALS: BMI 36.3
[2022-05-12 14:38] VITALS: BP 147/89; PULSE 78
[2022-05-12 14:48] VITALS: BP 147/96; PULSE 78
[2022-05-12 14:58] VITALS: BP 143/88; PULSE 76
[2022-05-12 15:08] VITALS: BP 142/96; PULSE 86
[2022-05-12 15:18] VITALS: BP 144/99; PULSE 80
[2022-05-12 15:33] LABS: Hematocrit 30.6 % (37-47); Hemoglobin 9.7 g/dL (12.0-15.0); Mean Corp Hgb Conc 31.7 g/dL (32-36); Mean Corpuscular Hgb 25.7 pg (27.0-32.0); Mean Platelet Vol. 10.8 fl (6.2-12.0); Platelet Count 247 K/mm3 (150-450); RBC Distribution Width CV 12.7 % (11.6-14.6); RBC Distribution Width SD 37.9 fl (35.1-43.9); Red Blood Count 3.78 M/mm3 (4.2-5.4); White Blood Count 10.6 K/mm3 (4.4-11.0)
[2022-05-12 15:48] LABS: ALB/GLOB Ratio 0.6 RATIO (0.9-2.4); AST(SGOT) 17 U/L (15-37); Alanine Aminotransfer ALT/SGPT 25 U/L (13-56); Albumin, Serum 2.3 g/dL (3.2-5.0); Alkaline Phosphatase 141 U/L (45-117); Anion Gap 6 (5-15); BUN 11 mg/dL (7-18); BUN/Creat Ratio 15.8 RATIO (10-20); Calcium,Total 8.3 mg/dL (8.5-10.1); Chloride 112 mmol/L (98-107); EST Glomerular Filtration Rate 105 mL/min (>60); Est Glom Filt Rate - Afr Amer 127 mL/min (>60); Estimated Creatinine Clearance 131.35 ml/min; Globulin 3.9 g/dL (2.2-4.2); Glucose 104 mg/dL (74-106); Potassium 3.9 mmol/L (3.5-5.1); Protein, Total 6.2 g/dL (6.4-8.2); Protein, Urine (Random) 19.5 mg/dL (<11.9); Protein:Creat Ratio 369 mg/g CRE (0-200); Sodium Level 142 mmol/L (136-145)
[2022-05-12] MEDS: oxyCODONE 5 MG Tablet PO (16:18)
--- NOTE | 2022-05-12 17:26 | OB.TRI.NOTE ---
HPI - General HPI Narrative MARIBELL GARCIA, is a 31 F who presents to L&D post delivery of twins last week with headache and swelling of lower extremities. she is found to have mildly elevated blood pressures. [facility] Medical History (Updated 05/12/22 @ 17:[address] Keely Boateng, DO) Anxiety delivery delivered Depression Family history of hearing loss at age younger than 7 years Gestational hypertension H/O blood clots Hx of cardiac murmur Thyroid disorder Home Medications levothyroxine 50 mcg tablet 50 mcg PO DAILY Check with primary doctor 04/16/20 [History Last Taken 05/07/22 03:05] docosahexaenoic acid 200 mg capsule ( DHA) 200 mg PO DAILY 06/18/21 [History Last Taken 05/06/22 19:00] enoxaparin 40 mg/0.4 mL subcutaneous syringe See Rx Instructions .Route .COMPLEX Check with primary doctor 42 days #4 mL 05/07/22 [Rx Last Taken Unknown] famotidine 20 mg tablet (Pepcid) 20 mg PO DAILY heartburn 05/07/22 [History Last Taken 05/06/22 22:00] oxycodone-acetaminophen 5 mg-325 mg tablet (Percocet) 1 tab PO Q6H PRN pain 7 days #20 tabs 05/07/22 [Rx Last Taken Unknown] furosemide 20 mg tablet (Lasix) 20 mg PO BID #6 tabs 05/12/22 [Rx Last Taken Unknown] labetalol 100 mg tablet 100 mg PO BID 30 days #60 tabs 05/12/22 [Rx Last Taken Unknown] Allergy/AdvReac Type Severity Reaction Status Date / Time adhesive tape [tape] Allergy Other Verified 05/07/22 05:07 latex Allergy Other Verified 05/07/22 05:07 Anesthesia AdvReac Severe Hard to Uncoded 05/06/22 16:01 wake, Vomiting Family History Mother Age related osteoporosis CVA (cerebral vascular accident) Myeloma Anesthesia complication History of blood clots Cancer Grandfather Alcoholism Asthma Diabetes Myocardial infarction 40's Respiratory disease Heart disease Grandfather Myocardial infarction 40's Grandmother Anesthesia complication Arthritis Breast cancer Epilepsy Skin cancer CVA (cerebral vascular accident) Father Arthritis Depression Hypertension High cholesterol Thyroid disorder Daughter Alatorre syndrome Surgical History (Updated 05/07/22 @ 14:[address] Ami Chaudhari MD) History of History of colposcopy History of placement of ear tubes History of tonsillectomy Social History adopted: No household members: significant other number of children: 1 current occupational status: employed and previously employed current occupation: [employer] Smoking Status: Never smoker alcohol intake: never substance use type: does not use caffeine: Yes (limited) Type: tea what type of physical activity do you participate in: walking seatbelt use: always do you feel safe at home: Yes additional social history: Vicky Srivastava History 2 Elective abortions Hx Para 3 Spontaneous abortions Hx # Term Pregnancies Ectopic pregnancies Hx # Pregnancies 1 Multiple births 1 # of living children 3 Past Pregnancies Del. 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 ROS Constitutional Constitutional: Reports systems reviewed and no addt'l complaints, except as documented Gastrointestinal Gastrointestinal: Denies bloating, constipation, cramping, diarrhea, nausea or vomiting Genitourinary Genitourinary: Reports other Details: Denies vaginal odor, vaginal bleeding, or vaginal discharge ; Denies difficulty urinating or flank pain Physical Exam Const alert, oriented x3 and no apparent distress HEENT normocephalic Resp normal respiratory effort and normal air movement GI soft to palpation, non-tender, non-distended and hepatosplenomegaly no CVA tenderness Extremity normal to inspection General Extremity: edema bilateral (3+ ) lower extremity Assessment & Plan (1) hypertension: PLAN: serum tests are all normal. pr:cr is mildly elevated bp mildly elevated pt's biggest complaint is the swelling in her legs. will give 3 days of lasix and start labetalol 100 mg bid. follow up in office this week. Charges/Coding Multi Select Codes Visit Charges Office Visit/Consults: [id number] OV L3 Est
[2022-05-12] MEDS: Furosemide 20 MG Tablet PO (17:48)
[2022-05-12] MEDS: Labetalol 100 MG Tablet PO (17:48)
== END 2022-05-12 17:55 | disposition home or self-care (01) ==
LOC: WPOUT 14:25 → WP 14:25
PROVIDERS: PCP Family Medicine; Referring Provider Obstetrics & Gynecology; Visit Provider Obstetrics & Gynecology
DX: O13.5 Gestational [pregnancy-induced] hypertension without significant proteinuria, complicating the puerperium (principal); O99.893 Other specified diseases and conditions complicating puerperium; R51.9 Headache, unspecified; Z79.01 Long term (current) use of anticoagulants
CPT/HCPCS: 80053; 82570; 84156; 85027

== ENCOUNTER 2022-11-01 22:02 | Emergency (ER) | payer MEDICAID, SELFPAY ==
[2022-11-01 22:03] VITALS: BP 134/93; PULSE 111; RESP 18; TEMP 35.6; O2SAT 97
[2022-11-01 22:04] VITALS: BMI 36.0
--- NOTE | 2022-11-01 22:43 | EX.ED.DYSGE1 ---
HPI History of Present Illness Chief Complaint: Wound Narrative Narrative: Patient is a 32-year-old female with past medical history of hypothyroidism currently on Synthroid. She states that she had gone to the grocery store this evening and when she returned home she was unloading groceries when she caught the nail of her left great toe on the edge of the cabinet. This caused the toenail to elevate off the nailbed. Patient states she began bleeding but the toenail did not become completely avulsed and she was able to push it back down. She states she is concerned about possible infection secondary to the trauma and therefore comes in for evaluation. [facility] Medical History Anxiety delivery delivered Depression Family history of hearing loss at age younger than 7 years Gestational hypertension H/O blood clots Hx of cardiac murmur Thyroid disorder Home Medications levothyroxine 50 mcg tablet 50 mcg PO DAILY Check with primary doctor 04/16/20 [History Last Taken 05/07/22 03:05] cephalexin 500 mg capsule 500 mg PO TID 7 days #21 caps 11/01/22 [Rx Last Taken Unknown] Allergy/AdvReac Type Severity Reaction Status Date / Time adhesive tape [tape] Allergy Other Verified 11/01/22 22:02 latex Allergy Other Verified 11/01/22 22:02 Anesthesia AdvReac Severe Hard to Uncoded 11/01/22 22:02 wake, Vomiting Family History Mother Age related osteoporosis CVA (cerebral vascular accident) Myeloma Anesthesia complication History of blood clots Cancer Grandfather Alcoholism Asthma Diabetes Myocardial infarction 40's Respiratory disease Heart disease Grandfather Myocardial infarction 40's Grandmother Anesthesia complication Arthritis Breast cancer Epilepsy Skin cancer CVA (cerebral vascular accident) Father Arthritis Depression Hypertension High cholesterol Thyroid disorder Daughter Alatorre syndrome Surgical History H/O bilateral salpingectomy History of History of colposcopy History of placement of ear tubes History of tonsillectomy Social History adopted: No household members: significant other number of children: 1 current occupational status: employed and previously employed current occupation: [employer] Smoking Status: Never smoker alcohol intake: never substance use type: does not use caffeine: Yes (limited) Type: tea what type of physical activity do you participate in: walking seatbelt use: always do you feel safe at home: Yes additional social history: Vicky Srivastava ROS ROS ED Constitutional Constitutional ED: Denies chills or fever(s) ENT ENT ED: Denies sore throat Cardiovascular Cardiovascular: Denies chest pain Respiratory/Chest Respiratory/Chest: Denies cough or dyspnea Gastrointestinal Gastrointestinal: Denies abdominal pain, diarrhea, nausea or vomiting Genitourinary Genitourinary ED: Denies dysuria Musculoskeletal Musculoskeletal: Reports other Details: Left great toe pain Integumentary Denies rash Neurologic Neurologic: Denies headache(s) Hematologic/Lymphatic Hematologic/Lymphatic: Denies easy bleeding or easy bruising EXAM Physical Exam Const Vital Signs: 11/01/22 22:03 Temperature 96.1 F L Temperature Source Temporal Pulse Rate 111 H Respiratory Rate 18 Blood Pressure 134/93 H Blood Pressure Mean 106 Pulse Ox 97 Oxygen Delivery Method Room Air Positive well nourished and well developed General Appearance ED: well developed Eyes PERRL and EOMs intact bilaterally Neck supple Resp normal respiratory effort and clear to auscultation bilaterally Cardio regular rate and regular rhythm Extremity Extremity Narrative: Left lower extremity is neurovascularly intact. There is no obvious bony deformity or joint effusion no signs of ligamentous or tendon injury. The patient's left great toenail is elevated off the nail bed. There is dried blood present on the edges of the great toe but no active bleeding or foreign body. No obvious subungual hematoma. Remainder the exam is normal Neuro oriented x3 and CN's II-XII intact bilaterally Sensorium / Orientation: alert Psych mental status grossly normal Skin no rashes or lesions noted MDM MDM MDM Narrative Medical decision making narrative: Patient presented to the ER with injury to the left great toe/toenail. The toenail had been elevated off the nail bed but there is no signs of bony injury foreign body puncture or ligamentous or tendon injury so I felt no need for an x-ray. At this time there is no active bleeding. The toenail has not been completely avulsed and is still intact at the cuticle. Therefore I feel it is most appropriate just to place the toenail back down into place over top the nailbed and provide wrapping in the hopes that the nail will scar back down to the nailbed. Prior to the wound being dressed the area was cleaned with copious amounts of normal saline and as well as chlorhexidine to prevent infection. However at this time as there is no signs of bony injury/fracture foreign body/puncture wound or ligamentous or tendon injury she is safe for discharge History & Record Review Discussion w/independent historian: Patient and Family Discharge Plan Triage Chief Complaint: Wound ED Provider: Joe Woods Dx/Rx/DC Orders Clinical Impression: Avulsion of toenail, Hypothyroid Instructions: ED Detached Fingernail or Toenail Prescriptions: New cephalexin 500 mg capsule 500 mg PO TID 7 Days Qty: 21 0RF No Action levothyroxine 50 MCG tablet 50 mcg PO DAILY Primary Care Provider: Dee Stern Referrals: Dee Stern MD [Primary Care Provider] - Activity Restrictions/Additional Instructions: Please only fill and begin taking antibiotic if you notice signs of infection such as increased redness swelling or pain around the toe Disposition Disposition: Home, Self Care
[2022-11-01 23:03] VITALS: PULSE 97
== END 2022-11-01 23:03 | disposition home or self-care (01) ==
PROVIDERS: Emergency Provider Emergency Medicine; PCP Family Medicine; Visit Provider Emergency Medicine
DX: S91.202A Unspecified open wound of left great toe with damage to nail, initial encounter (principal); W22.09XA Striking against other stationary object, initial encounter; Y92.009 Unspecified place in unspecified non-institutional (private) residence as the place of occurrence of the external cause; E03.9 Hypothyroidism, unspecified; Z79.890 Hormone replacement therapy
CPT/HCPCS: 99282

== ENCOUNTER → 2023-01-16 | Outpatient (CLI) | payer MEDICAID, SELFPAY ==
[2023-01-16 17:41] LABS: Absolute Lymphocyte Count 1.91 X10^3/uL (0.83-4.51); Absolute Neutrophil Count 4.6 X10^3/uL (2.0-7.7); Basophil# 0.05 X10^3/uL; Basophil% 0.7 % (0-1); Eosinophils% 2.8 % (0-5); Hemoglobin 13.7 g/dL (12.0-15.0); Lymphocyte # 1.91 X10^3/ul (0.83-4.51); Lymphocyte % 26.3 % (19-41); Mean Corp Hgb Conc 31.1 g/dL (32-36); Mean Corpuscular Hgb 24.8 pg (27.0-32.0); Mean Corpuscular Volume 79.6 fL (81-99); Mean Platelet Vol. 10.9 fl (6.2-12.0); Monocyte# 0.48 X10^3/uL; Monocyte% 6.6 % (0-10); NRBC Flagged by Analyzer 0 % (0-5); Neutrophil # 4.61 X10^3/uL (2.7-7.7); Neutrophil % 63.3 % (47-70); Platelet Count 241 K/mm3 (150-450); RBC Distribution Width CV 13.2 % (11.6-14.6); RBC Distribution Width SD 37.4 fl (35.1-43.9); Red Blood Count 5.53 M/mm3 (4.2-5.4); White Blood Count 7.3 K/mm3 (4.4-11.0)
[2023-01-16 18:31] LABS: Ferritin 8 ng/mL (8-252)
== END | disposition home or self-care (01) ==
LOC: BFHLAB 15:55
PROVIDERS: PCP Family Medicine; Referring Provider Family Medicine; Visit Provider Family Medicine
DX: E03.9 Hypothyroidism, unspecified (principal); D64.9 Anemia, unspecified
CPT/HCPCS: 36415; 82728; 84443; 85025

== ENCOUNTER → 2023-06-26 | Outpatient (CLI) | payer MEDICAID, SELFPAY ==
[2023-06-26 11:02] LABS: Absolute Neutrophil Count 5.9 X10^3/uL (2.0-7.7); Basophil# 0.05 X10^3/uL; Basophil% 0.5 % (0-1); Eosinophil# 0.21 X10^3/uL; Eosinophils% 2.3 % (0-5); Hematocrit 44.3 % (37-47); Hemoglobin 14.1 g/dL (12.0-15.0); Lymphocyte % 26.9 % (19-41); Mean Corp Hgb Conc 31.8 g/dL (32-36); Mean Corpuscular Hgb 24.7 pg (27.0-32.0); Mean Corpuscular Volume 77.6 fL (81-99); Mean Platelet Vol. 9.9 fl (6.2-12.0); Monocyte# 0.55 X10^3/uL; Monocyte% 5.9 % (0-10); NRBC Flagged by Analyzer 0 % (0-5); Neutrophil # 5.94 X10^3/uL (2.7-7.7); Neutrophil % 63.9 % (47-70); Platelet Count 249 K/mm3 (150-450); RBC Distribution Width CV 14.1 % (11.6-14.6); RBC Distribution Width SD 38.8 fl (35.1-43.9); Red Blood Count 5.71 M/mm3 (4.2-5.4); White Blood Count 9.3 K/mm3 (4.4-11.0)
== END | disposition home or self-care (01) ==
LOC: PAVLAB 10:48
PROVIDERS: PCP Family Medicine; Referring Provider Advanced Practice Midwife; Visit Provider Advanced Practice Midwife
DX: N92.0 Excessive and frequent menstruation with regular cycle (principal)
CPT/HCPCS: 36415; 84443; 85025

== ENCOUNTER → 2023-07-05 | Outpatient (CLI) | payer MEDICAID, SELFPAY ==
--- NOTE | 2023-07-05 10:13 | US_ITS ---
STUDY: ULTRASOUND OF THE FEMALE PELVIS - COMPLETE REASON FOR EXAM: Female, 32 years old. MENORRHAGIA LMP: 06/07/2023 TECHNIQUE: Transabdominal and Transvaginal TECHNICAL QUALITY: Adequate. COMPARISON: None. FINDINGS: The uterus is anteverted and is in a midline position. The uterus measures 8.6 x 6.1 x 3.7 cm. There is a Nabothian cyst of the cervix. The endometrium measures 8 mm in thickness, and is hyperechoic, with a few incidental calcifications seen. There is no demonstrated endometrial mass. There is no demonstrated myometrial mass. I.U.D. - The patient does not have an I.U.D. The right ovary is visualized. The right ovary measures 2.7 x 1.8 x 1.8 cm. There is no right ovarian cyst or ovarian mass. There is no visualized right adnexal mass or complex lesion. There is normal arterial and normal venous vascularity. The left ovary is visualized. The left ovary measures 3.1 x 2.1 x 1.9 cm. There is no left ovarian cyst or ovarian mass. There is no visualized left adnexal mass or complex lesion. There is normal arterial and normal venous vascularity. There is no fluid in the cul-de-sac. The pre void volume of the bladder was 128 ml. US/Pelvic w/ Transvaginal IMPRESSION: No definite acute or significant abnormality seen. Electronically Signed: Stephen Nguyễn MD at 21:12 EST ,
--- OUTSIDE RECORDS SUMMARY | 2023-07-05 10:15 | XMS RPT_ITS | CCD ---
Author Name Unknown Address [address] [place] [address] Organization [facility] Care Team Providers Care Software Engineer Developer Name Role Phone Unavailable Primary Care Provider Unavailabl e MARCANTHONY, LAKSHMI E Referring Unavailabl e PEKAREK, BRITTANY Primary Care Unavailable ELIE GUEVARA Attending Unavailable EYAL HUERTA Attending Unavailable MARCANTHONY LAKSHMI E Referring Unavailabl e PEKAREK, BRITTANY Primary Care Unavailable FORTUNATO MCWILLIAMS Attending Unavailable PEKAREK, BRITTANY Primary Care Unavailable LEOANTHBENITO LAKSHMI E Referring Unavailabl e MARCELINO GARZA Attending Unavailable PEKAREK, BRITTANY Primary Care Unavailable MARCANTHONY, LAKSHMI E Referring Unavailabl e HUERTAEYAL KNOX Referring Unavailable PEKAREK, BRITTANY Primary Care Unavailable NOLBERTO LAZAR Attending Unavailable MARCANTHONY, LAKSHMI E Referring Unavailabl e PEKAREK, BRITTANY Primary Care Unavailable ELIE GUEVARA Attending Unavailable MARCANTHBENITO LAKSHMI E Referring Unavailabl e EYAL HUERTA Attending Unavailable PEKAREK, BRITTANY Primary Care Unavailable LEOANTHBENITO LAKSHMI E Referring Unavailabl e ADARSH MASON Attending Unavailable PEKAREK, BRITTANY Primary Care Unavailable MARCANTHONY LAKSHMI E Referring Unavailabl e PEKAREK, BRITTANY Primary Care Unavailable ELIE GUEVARA Attending Unavailable Allergies Allergy Classification Reported Allergen(s) Allergy Type Date of Onset Reaction(s) Facility (1 source) Adhesive Tape; Translations: [TAPE ALLERGY] Propensity to adverse reactions (disorder) 0 [facility] (1 source) Latex; Translations: [LATEX] Propensity to adverse reactions to drug (disorder) 0 [facility] (1 source) OTHER; Translations: [OTHER] Propensity to adverse reactions to food (disorder) [facility] Medications Current Medications Medication Drug Class(es) Dates Sig (Normalized) Sig (Original) amoxicillin 875 mg / clavulanate 125 mg oral tablet (1 source) Penicillin-class Antibacterial Start: 09-26-2021 End: 10-03-2021 take 1 tablet by mouth twice daily amoxicillin-clav ulanic acid (AUGMENTIN) 875-125 mg per tablet Take 1 tablet by mouth twice daily for 7 days. 14 tablet 0 09/26/2021 10/03/2021 Active Completed/Discontinued Medications Medication Drug Class(es) Dates Sig (Normalized) Sig (Original) levothyroxine sodium 0.05 mg oral tablet (1 source) l-Thyroxine Start: 09-06-2021 take 1 tablet by mouth once daily levothyroxine (SYNTHROID) 50 mcg tablet Take 50 mcg by mouth once daily. 0 09/06/2021 Active Problems Problem Classification Problem Date Documented Da te Episodic/Chronic Other upper respiratory infections (1 source) Acute maxillary sinusitis; Translations: [Acute maxillary sinusitis, unspecified] Episodic Results Test Name Value Interpretation Reference Range Facil ity Vital Signs Date Time Vital Sign Value Performing Clinician Faci lity 09-26-2021 19:03-0400 Body temperature 99 [degF] Mohamud Zamorano APRN.PAULINA Work Phone: [facility] 09-26-2021 19:03-0400 Body weight 118.39 kg Mohamud Zamorano APRN.[employer] SYSTEMS SOFTWARE ENGINEER Work Phone: [facility] 09-26-2021 19:03-0400 Diastolic blood pressure 82 mm[Hg] Mohamud Zamorano APRN.EMBED[employer] SYSTEM[employer] SOFTWARE ENGINEER Work Phone: [facility] 09-26-2021 19:03-0400 Heart rate 82 /min Mohamud Zamorano APRN.[employer] SOFTWARE ENGINEER Work Phone: [facility] 09-26-2021 19:03-0400 Respiratory rate 16 /min Mohamud Zamorano APRN.EMB[employer] SOFTWARE ENGINEER Work Phone: [facility] 09-26-2021 19:03-0400 SaO2% (BldA) [Mass fraction] 99 % Mohamud Zamorano APRN.CNP Work Phone: [facility] 09-26-2021 19:03-0400 Systolic blood pressure 128 mm[Hg] Mohamud Zamorano APRN.CNP Work Phone: [facility] Encounters Encounter Date Encounter Type Care Provider Facility Start: 04-25-2022 End: 04-25-2022 ambulatory EYAL Andre [facility] Start: 03-25-2022 End: 03-25-2022 ambulatory FORTUNATO MCWILLIAMS [facility] Start: 02-21-2022 End: 02-21-2022 ambulatory MARCELINO GARZA [facility] Start: 02-11-2022 End: 02-11-2022 ambulatory EYAL K [facility] Start: 01-31-2022 End: 01-31-2022 ambulatory [facility] Start: 01-11-2022 End: 01-11-2022 ambulatory [facility] Start: 11-30-2021 End: 11-30-2021 ambulatory [facility] Start: 09-26-2021 End: 09-26-2021 Patient encounter procedure Mohamud Zamorano APRN.CNP Work Phone: [facility] Plan of Treatment Date Care Activity Detail Author Start: 01-24-2022 Influenza vaccination INFLUENZA (Sea son Ended) [facility] Start: 09-01-2021 HPV TESTING HPV TESTING [facility] Start: 09-01-2012 PAP TESTING PAP TESTING [facility] Start: 09-01-2010 Urine microalbumin profile DTAP,TDAP ,TD (1 - Tdap) [facility] Start: 09-01-2009 HEPATITIS C SCREENING HEPATITIS C SC REENING [facility] Start: 09-01-2009 HIV SCREENING HIV SCREENING [facility] Start: 2003 Adult depression scr eening assessment DEPRESSION SCREENING [facility] Start: 09-01-1996 COVID-19 VACCINE (1) COVID-19 VACCIN E (1) [facility] Payers Date Payer Category Payer Medicaid [facility] MEDICAID [employer] MEDICAID [id number] 2021-Present [phone] [address] [place] [address] Medicaid [id number] 1991 Unknown [id number] 1991 Unknown [id number] [id number] 1991 Unknown [id number] [id number] 1991 Unknown [id number] [id number] 1991 Unknown [id number] [id number] 1991 Unknown [id number] [id number] 1991 Unknown [id number] [id number] 1991 Unknown [id number] [id number] 1991 Unknown [id number] [id number] Private Health Insurance [id number] Social History Date Type Detail Facility [facility] Start: 09-26-2021 Tobacco use and exposure Smoke less tobacco non-user [facility] Start: 1990 Sex Assigned At Not on file [facility] Progress note 09-26-2021 Note Date & Type Note Facility 09-26-2021 Note HNO ID: [id number] Author: Mohamud Zamorano APRN.EMBEDDED SYSTEMS SOFTWARE ENGINEER Service: ? Author Type: Nurse Practitioner Type: Progress Notes Filed: 09/26/2021 7:25 PM Note Text: Subjective HPI Nontoxic-appearing female presents urgent care chief complaint right ear pain and sinus pressure. Duration of symptoms 1 week. Associated symptoms listed above. Patient states sinus pressure is worsening. Presents today for evaluation of sinuses and ears. No known sick contacts. Denies any OTC medication use today. Has been using Mucinex this has not helped. Denies any fever body aches chills productive cough chest pain shortness of breath pleuritic pain hemoptysis nausea vomiting abdominal pain or change in bowel or bladder habits. Past medical history prescription medication use allergies reviewed. Denies chance of is not breast-feeding. .Patient presents with: Ear Pain: right ear pain and sinus pressure x 1 week History reviewed. No pertinent past medical history. History reviewed. No pertinent surgical history. ALLERGIES Patient has no known allergies. MEDICATIONS levothyroxine (SYNTHROID) 50 mcg tablet Take 50 mcg by mouth once daily. amoxicillin-clavulanic acid (AUGMENTIN) 875-125 mg per tablet Take 1 tablet by mouth twice daily for 7 days. History reviewed. No pertinent family history. Social History Tobacco Use - Smoking status: Never Smoker - Smokeless tobacco: Never Used Substance Use Topics - Alcohol use: Not on file - Drug use: Not on file BP 128/82 Pulse 82 Temp 37.2 ?C (99 ?F) (Tympanic) Resp 16 Wt 118.4 kg (261 lb) SpO2 99% Review of Systems Constitutional: Negative for chills, fever and malaise/fatigue. HENT: Positive for congestion, ear pain and sinus pain. Negative for ear discharge and sore throat. Eyes: Negative for blurred vision, pain, discharge and redness. Respiratory: Negative for cough, hemoptysis, sputum production, shortness of breath, wheezing and stridor. Cardiovascular: Negative for chest pain. Gastrointestinal: Negative for abdominal pain, diarrhea, nausea and vomiting. Musculoskeletal: Negative for myalgias. Skin: Negative for itching and rash. Neurological: Negative for dizziness and headaches. Objective Physical Exam Vitals and nursing note reviewed. Constitutional: General: She is not in acute distress. Appearance: She is not diaphoretic. HENT: Head: Normocephalic and atraumatic. Jaw: No trismus, tenderness or swelling. Right Ear: Hearing, tympanic membrane, ear canal and external ear normal. No decreased hearing noted. No drainage, swelling or tenderness. No mastoid tenderness. Tympanic membrane is not perforated, erythematous or bulging. Left Ear: Hearing, tympanic membrane, ear canal and external ear normal. No decreased hearing noted. No drainage, swelling or tenderness. No mastoid tenderness. Tympanic membrane is not perforated, erythematous or bulging. Nose: Congestion present. Right Sinus: Maxillary sinus tenderness present. Left Sinus: Maxillary sinus tenderness present. Mouth/Throat: Lips: Vayas. Mouth: Mucous membranes are moist. Pharynx: Oropharynx is clear. Uvula midline. No pharyngeal swelling, oropharyngeal exudate, posterior oropharyngeal erythema or uvula swelling. Eyes: General: Right eye: No discharge. Left eye: No discharge. Conjunctiva/sclera: Conjunctivae normal. Pupils: Pupils are equal, round, and reactive to light. Cardiovascular: Rate and Rhythm: Normal rate and regular rhythm. Heart sounds: Normal heart sounds. Pulmonary: Effort: Pulmonary effort is normal. No tachypnea, accessory muscle usage or respiratory distress. Breath sounds: Normal breath sounds. No stridor. No wheezing, rhonchi or rales. Chest: Chest wall: No tenderness. Abdominal: Palpations: Abdomen is soft. Tenderness: There is no abdominal tenderness. Musculoskeletal: General: No tenderness. Normal range of motion. Cervical back: Normal range of motion and neck supple. No rigidity or tenderness. Lymphadenopathy: Head: Right side of head: No submental, submandibular, tonsillar, preauricular, posterior auricular or occipital adenopathy. Left side of head: No submental, submandibular, tonsillar, preauricular, posterior auricular or occipital adenopathy. Cervical: No cervical adenopathy. Right cervical: No superficial or posterior cervical adenopathy. Left cervical: No superficial or posterior cervical adenopathy. Skin: General: Skin is warm and dry. Findings: No rash. Neurological: Mental Status: She is alert and oriented to person, place, and time. ASSESSMENT/PLAN: 1. Acute maxillary sinusitis, recurrence not specified - ICD9: 461.0, ICD10: J01.00 Patient diagnosed with maxillary sinusitis. Patiently placed on Augmentin. Patient was educated on supportive therapies. Patient will follow up with primary care provider as needed. Patient was instructed to immediately pro (more content not included)... [facility] History of Present illness Narrative 09-26-2021 Mohamud Zamorano APRN.[facility] - 09/26/2021 7:19 PM EDT Note Date & Type Note Facility 09-26-2021 History of Presen t illness Narrative Subjective HPI Nontoxic-appearing female presents urgent care chief complaint right ear pain and sinus pressure. Duration of symptoms 1 week. Associated symptoms listed above. Patient states sinus pressure is worsening. Presents today for evaluation of sinuses and ears. No known sick contacts. Denies any OTC medication use today. Has been using Mucinex this has not helped. Denies any fever body aches chills productive cough chest pain shortness of breath pleuritic pain hemoptysis nausea vomiting abdominal pain or change in bowel or bladder habits. Past medical history prescription medication use allergies reviewed. Denies chance of is not breast-feeding. .Patient presents with: Ear Pain: right ear pain and sinus pressure x 1 week History reviewed. No pertinent past medical history. History reviewed. No pertinent surgical history. ALLERGIES Patient has no known allergies. MEDICATIONS levothyroxine (SYNTHROID) 50 mcg tablet Take 50 mcg by mouth once daily. amoxicillin-clavulanic acid (AUGMENTIN) 875-125 mg per tablet Take 1 tablet by mouth twice daily for 7 days. History reviewed. No pertinent family history. Social History Tobacco Use Smoking status: Never Smoker Smokeless tobacco: Never Used Substance Use Topics Alcohol use: Not on file Drug use: Not on file BP 128/82 Pulse 82 Temp 37.2 C (99 F) (Tympanic) Resp 16 Wt 118.4 kg (261 lb) SpO2 99% Review of Systems Constitutional: Negative for chills, fever and malaise/fatigue. HENT: Positive for congestion, ear pain and sinus pain. Negative for ear discharge and sore throat. Eyes: Negative for blurred vision, pain, discharge and redness. Respiratory: Negative for cough, hemoptysis, sputum production, shortness of breath, wheezing and stridor. Cardiovascular: Negative for chest pain. Gastrointestinal: Negative for abdominal pain, diarrhea, nausea and vomiting. Musculoskeletal: Negative for myalgias. Skin: Negative for itching and rash. Neurological: Negative for dizziness and headaches. Objective Physical Exam Vitals and nursing note reviewed. Constitutional: General: She is not in acute distress. Appearance: She is not diaphoretic. HENT: Head: Normocephalic and atraumatic. Jaw: No trismus, tenderness or swelling. Right Ear: Hearing, tympanic membrane, ear canal and external ear normal. No decreased hearing noted. No drainage, swelling or tenderness. No mastoid tenderness. Tympanic membrane is not perforated, erythematous or bulging. Left Ear: Hearing, tympanic membrane, ear canal and external ear normal. No decreased hearing noted. No drainage, swelling or tenderness. No mastoid tenderness. Tympanic membrane is not perforated, erythematous or bulging. Nose: Congestion present. Right Sinus: Maxillary sinus tenderness present. Left Sinus: Maxillary sinus tenderness present. Mouth/Throat: Lips: Vayas. Mouth: Mucous membranes are moist. Pharynx: Oropharynx is clear. Uvula midline. No pharyngeal swelling, oropharyngeal exudate, posterior oropharyngeal erythema or uvula swelling. Eyes: General: Right eye: No discharge. Left eye: No discharge. Conjunctiva/sclera: Conjunctivae normal. Pupils: Pupils are equal, round, and reactive to light. Cardiovascular: Rate and Rhythm: Normal rate and regular rhythm. Heart sounds: Normal heart sounds. Pulmonary: Effort: Pulmonary effort is normal. No tachypnea, accessory muscle usage or respiratory distress. Breath sounds: Normal breath sounds. No stridor. No wheezing, rhonchi or rales. Chest: Chest wall: No tenderness. Abdominal: Palpations: Abdomen is soft. Tenderness: There is no abdominal tenderness. Musculoskeletal: General: No tenderness. Normal range of motion. Cervical back: Normal range of motion and neck supple. No rigidity or tenderness. Lymphadenopathy: Head: Right side of head: No submental, submandibular, tonsillar, preauricular, posterior auricular or occipital adenopathy. Left side of head: No submental, submandibular, tonsillar, preauricular, posterior auricular or occipital adenopathy. Cervical: No cervical adenopathy. Right cervical: No superficial or posterior cervical adenopathy. Left cervical: No superficial or posterior cervical adenopathy. Skin: General: Skin is warm and dry. Findings: No rash. Neurological: Mental Status: She is alert and oriented to person, place, and time. ASSESSMENT/PLAN: 1. Acute maxillary sinusitis, recurrence not specified - ICD9: 461.0, ICD10: J01.00 Patient diagnosed with maxillary sinusitis. Patiently placed on Augmentin. Patient was educated on supportive therapies. Patient will follow up with primary care provider as needed. Patient was instructed to immediately proceed to emergency room for any new, worsening, or symptoms lasting longer than anticipated. The patient's clinical presentation is otherwise unremarkable at this time. Based on exam and clinical finding, the patient is stable for discharge. Plan of care was discussed with patient. Patient verbalizes understanding and agrees to plan of care. This note was generated using [employer] software. It may contain errors in wording, punctuation, or spelling.. Mohamud Zamorano APRN.PAULINA documented in this encounter [facility] Evaluation note Note Date & Type Note Facility documented in this encounter [facility] Summary Purpose Family History No Family History Records FoundNo Family History Records FoundNo Family History Records FoundNo Family History Records FoundNo Family History Records Found Advance Directives No Advanced Directives Records FoundNo Advanced Directives Records FoundNo Advanced Directives Records FoundNo Advanced Directives Records FoundNo Advanced Directives Records Found Additional Source Comments INFORMATION SOURCE (unrecogn ized section and content) DATE CREATED AUTHOR AUTHOR'S ORGANIZ ATION 01/18/2018 [facility] DATE CREATED AUTHOR AUTHOR'S ORGANIZ ATION 11/27/2018 [facility] DATE CREATED AUTHOR AUTHOR'S ORGANIZ ATION 09/28/2021 [facility] DATE CREATED AUTHOR AUTHOR'S ORGANIZ ATION 04/25/2022 [facility] Source Comments (unrecognize d section and content) In the event this informatio n is protected by the Federal Confidentiality of Alcohol and Drug Abuse Patient Records regulations: The Federal rules restrict any use of the information to criminally investigate or prosecute any alcohol or drug abuse patient.[facility] Reason for Visit (unrecogniz ed section and content) FOR RECORDS PERTAINING TO PATIENTS WHO ARE OR HAVE BEEN ENROLLED IN A CHEMICAL DEPENDENCY/SUBSTANCEABUSE PROGRAM, SOME INFORMATION MAY BE OMITTED. This clinical summary was aggregated from multiple sources. Caution should be exercised in using it in the provision of clinical care. This summary normalizes information from multiple sources, and as a consequence, information in this document may materially change the coding, format and clinical context of patient data. In addition, data may be omitted in some cases. CLINICAL DECISIONS SHOULD BE BASED ON THE PRIMARY CLINICAL RECORDS. [facility], [facility]. provides no warranty or guarantee of the accuracy or completeness of information in this document.
== END | disposition home or self-care (01) ==
LOC: US 10:12
PROVIDERS: PCP Family Medicine; Referring Provider Advanced Practice Midwife; Visit Provider Advanced Practice Midwife
DX: N92.0 Excessive and frequent menstruation with regular cycle (principal)
CPT/HCPCS: 76830; 76856

== ENCOUNTER → 2023-08-19 | Outpatient (CLI) | payer MEDICAID, SELFPAY | END | disposition home or self-care (01) | LOC: LAB 12:00 | PROVIDERS: PCP Family Medicine; Referring Provider Family Medicine; Visit Provider Family Medicine | DX: E03.9 Hypothyroidism, unspecified (principal) | CPT/HCPCS: 36415; 84443 ==

== ENCOUNTER → 2023-09-02 | Outpatient (CLI) | payer MEDICAID, SELFPAY ==
[2023-09-02 09:42] LABS: Absolute Lymphocyte Count 2.01 X10^3/uL (0.83-4.51); Basophil# 0.06 X10^3/uL; Basophil% 0.9 % (0-1); Eosinophil# 0.14 X10^3/uL; Eosinophils% 2.1 % (0-5); Hemoglobin 13.9 g/dL (12.0-15.0); Lymphocyte # 2.01 X10^3/ul (0.83-4.51); Lymphocyte % 30.2 % (19-41); Mean Corp Hgb Conc 32.3 g/dL (32-36); Mean Corpuscular Hgb 25.5 pg (27.0-32.0); Mean Corpuscular Volume 78.8 fL (81-99); Mean Platelet Vol. 10.2 fl (6.2-12.0); Monocyte# 0.41 X10^3/uL; Monocyte% 6.2 % (0-10); NRBC Flagged by Analyzer 0 % (0-5); Neutrophil % 60.1 % (47-70); Platelet Count 237 K/mm3 (150-450); RBC Distribution Width CV 13.6 % (11.6-14.6); RBC Distribution Width SD 38.5 fl (35.1-43.9); Red Blood Count 5.46 M/mm3 (4.2-5.4); White Blood Count 6.7 K/mm3 (4.4-11.0)
[2023-09-02 14:29] LABS: Ferritin 15 ng/mL (8-252); Iron 80 ug/dL (50-170); Iron Binding Capacity,Total 473 ug/dL (250-450); PERCENT IRON SATURATION 16.9 % (15.0-55.0)
== END | disposition home or self-care (01) ==
LOC: LAB 09:20
PROVIDERS: PCP Family Medicine; Referring Provider Family Medicine; Visit Provider Family Medicine
DX: E03.9 Hypothyroidism, unspecified (principal); D64.9 Anemia, unspecified
CPT/HCPCS: 36415; 82728; 83540; 83550; 85025

== ENCOUNTER → 2024-06-28 | Outpatient (CLI) | payer MEDICAID, SELFPAY ==
[2024-06-28 12:43] LABS: T4 Free Direct 1.23 ng/dL (0.76-1.46)
[2024-06-29 04:07] LABS: Thyroid Peroxidase AB 66 IU/mL (0-34)
[2024-06-30 13:07] LABS: Vitamin D 1,25-Dihydroxy 37.7 pg/mL (24.8-81.5)
[2024-07-01 00:07] LABS: HPV APTIMA, High Risk Negative (Negative)
== END | disposition home or self-care (01) ==
LOC: BWCLAB 10:37
PROVIDERS: PCP Family Medicine; Referring Provider Obstetrics & Gynecology; Visit Provider Obstetrics & Gynecology
DX: Z12.4 Encounter for screening for malignant neoplasm of cervix (principal); E01.0 Iodine-deficiency related diffuse (endemic) goiter
CPT/HCPCS: 36415; 82652; 84439; 84443; 84481; 86376; 87624; 88175; G0145

== ENCOUNTER → 2024-07-07 | Outpatient (CLI) | payer MEDICAID, SELFPAY ==
--- NOTE | 2024-07-07 12:17 | US_ITS ---
PROCEDURE: THYROID REASON FOR EXAM: History of thyroid goiter. TECHNIQUE: Thyroid ultrasound COMPARISON: None. FINDINGS: Right thyroid lobe measures 5.2 cm x 2.1 cm x 2 cm. Left thyroid lobe measures 5.6 cm x 2.1 cm x 1.9 cm. Isthmus thickness is5 mm. Thyroid Size: Diffusely enlarged Background Echotexture: Heterogeneous Thyroid Nodules: There is a 9 mm x 9 mm x 6 mm slightly hyperechoic nodule in the midpole of the right lobe. A similar-appearing nodule measuring 9 mm x 7 mm x 6 mm is seen in the left lobe. US/Thyroid IMPRESSION: Enlarged goiter is thyroid as described with a subcentimeter densities in both lobe. Follow-up recommended. Reading Location: [place] [address]
== END | disposition home or self-care (01) ==
LOC: OPUS 12:16
PROVIDERS: PCP Family Medicine; Referring Provider Obstetrics & Gynecology; Visit Provider Obstetrics & Gynecology
DX: E01.0 Iodine-deficiency related diffuse (endemic) goiter (principal)
CPT/HCPCS: 76536

== ENCOUNTER → 2024-11-06 | Outpatient (CLI) | payer MEDICAID, SELFPAY ==
--- OUTSIDE RECORDS SUMMARY | 2024-11-06 08:53 | XMS RPT_ITS | CCD ---
Author Organization [facility] Care Team Providers Care Cell Pourer Name Role Phone Unavailable Primary Care Provider Dr. Dee Black Primary Care Provider [phone] [phone] BLAST FURNACE KEEPER, GIAN Lucio Attending Provider [phone] Dr. Dee Stern Referring Provider [phone] Dr. Ami Lopez Attending Provider [phone] Dr. Dee Stern Primary Care Provider [phone] Dr. Dee Stern Referring Provider [phone] Dr. Ami Lopez Attending Provider [phone] Dr. Keely Boateng Attending Provider [phone] [phone] Dr. Dee Stern Primary Care Provider [phone] Dr. Dee Stern Referring Provider [phone] Dr. Ami Lopez Attending Provider [phone] NARDA Courtney Attending Provider [phone] Dr. Dee Stern Primary Care Provider [phone] Dr. Dee Stern Referring Provider [phone] Dr. Ami Lopez Attending Provider [phone] Dr. Keely Boateng Attending Provider [phone] NARDA Courtney Attending Provider AMI LOPEZ Referring UnavailPAIGE Spencer Primary Care Unavailable ELIE GUEVARA Attending Unavailable EYAL HUERTA Attending Unavailable MARCANTHONY, AMI E Referring Unavailabl e PEKAREK, PAIGE Primary Care Unavailable FORTUNATO MCWILLIAMS Attending Unavailable PEKAREK, PAIGE Primary Care Unavailable MARCANTHONY, AMI E Referring Unavailabl e MARCELINO GARZA Attending Unavailable PEKAREK, PAIGE Primary Care Unavailable MARCANTHONY, AMI E Referring Unavailabl e HUERTA, EYAL Powell Referring Unavailable PEKAREK, PAIGE Primary Care Unavailable NOLBERTO LAZAR Attending Unavailable MARCANTHONY, AMI E Referring Unavailabl e PEKAREK, PAIGE Primary Care Unavailable ELIE GUEVARA Attending Unavailable MARCANTHONY, AMI E Referring Unavailabl e HUERTA, EYAL Powell Attending Unavailable PEKAREK, PAIGE Primary Care Unavailable MARCANTHONY, AMI E Referring Unavailabl e AISHA MASON Attending Unavailable PEKAREK, PAIGE Primary Care Unavailable MARCANTHONY, AMI E Referring Unavailabl e PEKAREK, PAIGE Primary Care Unavailable PAOLA, ELIE Whyte Attending Unavailable Dr. Kota Sotelo Attending Provider Dr. Dee Stern Primary Care Provider [phone] Dr. Dee Stern Referring Provider [phone] Ami Lopez Attending Provider [phone] Dr. Ami Lopez Admit Provider [phone] Dr. Ami Lopez Other Provider [phone] Dr. Keely Boateng Referring Provider [phone] Dr. Keely Boateng Other Provider Dr. Dee Stern Primary Care Provider [phone] Dr. Dee Stern Referring Provider [phone] NARDA Bolden Attending Provider [phone] Dr. Dee Stern Primary Care Provider [phone] Dr. Dee Stern Referring Provider [phone] NARDA Bolden Attending Provider [phone] Dee Stern Referring Unavailable Ami Lopez Attending Unavailable Miedel, Dee Primary Care Unavailable Marcjudyony, Ami Attending Unavailable Miedel, Dee Referring Unavailable Miedel, Dee Primary Care Unavailable Haja Herndon Attending Unavailable Miedel, Dee Referring Unavailable Miedel, Dee Primary Care Unavailable Marcanthony, Ami Referring Unavailable Miedel, Dee Primary Care Unavailable Marcanthony, Ami Attending Unavailable Marcanthony, Ami Referring Unavailable Miedel, Dee Primary Care Unavailable Marcanthony, Ami Attending Unavailable Miedel, Dee Referring Unavailable Miedel, Dee Primary Care Unavailable Marcanthony, Ami Attending Unavailable Miedel, Dee Referring Unavailable Miedel, Dee Primary Care Unavailable Ami Lopez Attending Unavailable Miedel, Dee Referring Unavailable Miedel, Dee Primary Care Unavailable Art Bains Attending Unavailable Allergies Allergy Classification Reported Allergen(s) Allergy Type Date of Onset Reaction(s) Facility (10 sources) Adhesive Tape Allergy to substance 2 Unknown [facility] Work Phone: (20 sources) Latex; Translations: [LATEX] Allergy to substance 0 Unknown, Other [facility] (15 sources) Anesthesia Propensity to adverse reactions 2 Hard to wake, Vomiting [facility] Work Phone: (1 source) Adhesive Tape; Translations: [TAPE ALLERGY] Propensity to adverse reactions (disorder) 0 [facility] (1 source) OTHER; Translations: [OTHER] Propensity to adverse reactions to food (disorder) 1 [facility] (11 sources) Adhesive Tape; Translations: [adhesive tape] Allergy to substance 2 NEEDS FOLLOW-UP, Other [facility] (5 sources) Anesthetics - Amide Type - Select A Propensity to adverse reactions 3 Vomiting [facility] (1 source) Latex Drug allergy (disorder) 5 [facility] Rep[facility] (1 source) Anesthetics - Amide Type - Select A Drug allergy (disorder) 5 [facility] Repository Medications Current Medications Medication Drug Class(es) Dates Sig (Normalized) Sig (Original) amoxicillin 875 mg / clavulanate 125 mg oral tablet (1 source) Penicillin-class Antibacterial Start: 09-26-2021 End: 10-03-2021 take 1 tablet by mouth twice daily amoxicillin-clavulan ic acid (AUGMENTIN) 875-125 mg per tablet Take 1 tablet by mouth twice daily for 7 days. 14 tablet 0 09/26/2021 10/03/2021 Active Comment on above: Take 1 tablet by radha twice daily for 7 days. aspirin 81 mg oral tablet (5 sources) Platelet Aggregation Inhibitor, Nonsteroidal Anti-inflammatory Drug Start: 03-16-2022 take 81 mg by mouth once daily Aspirin Active 81 MG PO DAILY March 15, 2022 11:00pm docosahexaenoic acid 200 mg oral capsule (15 sources) Start: 06-18-2021 take 1 capsule by mouth once daily Docosahexaenoic Acid ( Dha) 200 mg capsule Active 200 MG PO DAILY June 18, 2021 12:00am levothyroxine sodium 0.05 mg oral tablet (20 sources) l-Thyroxine Start: 04-16-2020 take 50 ug by mouth once daily Levothyroxine Active 50 MCG PO DAILY April 16, 2020 1:00am Comment on above: Take 50 mcg by mouth once daily. meclizine hydrochloride 25 mg oral tablet (3 sources) Antiemetic Start: 11-23-2021 take 25 mg by mouth three times daily Meclizine Active 25 MG PO THREE TIMES A DAY 90 November 23, 2021 12:00am ondansetron 4 mg oral tablet (5 sources) Serotonin-3 Receptor Antagonist Start: 11-05-2021 take 4 mg by mouth every four hours Ondansetron Hcl Active 4 MG PO Q4H 60 November 05, 2021 12:00am Completed/Discontinued Medications Medication Drug Class(es) Dates Sig (Normalized) Sig (Original) acetaminophen 325 mg / oxyCODONE hydrochloride 5 mg oral tablet (9 sources) Opioid Agonist Start: 05-07-2022 End: 06-24-2022 take 1 tablet by mouth every six hours Oxycodone-Acetamino phen (Percocet) 5-325 mg tablet Discontinued 1 TABLET PO EVERY 6 HOURS 20 May 07, 2022 June 24, 2022 11:11am azithromycin 250 mg oral tablet (20 sources) Macrolide Antimicrobial Start: 03-14-2019 End: 06-07-2019 take 2-5 tablets by mouth once daily Azithromycin (Zithromax Z-Christian) 250 mg tablet Discontinued 0 PO .COMPLEX March 14, 2019 12:00am June 07, 2019 10:18am take 500 mg today (day 1), then 250 mg for 4 days (days 2-5) PO cephalexin 500 mg oral capsule (5 sources) Cephalosporin Antibacterial Start: 11-01-2022 End: 06-26-2023 take 500 mg by mouth three times daily Cephalexin Discontinued 500 MG PO THREE TIMES A DAY 21 November 01, 2022 12:00am June 26, 2023 10:51am 0.4 ml enoxaparin sodium 100 mg/ml prefilled syringe (20 sources) Low Molecular Weight Heparin Start: 01-22-2022 End: 05-07-2022 Enoxaparin Discontinued 0 .ROUTE .COMPLEX April 22, 2022 11:58am May 07, 2022 6:10am INJECT THE CONTENTS OF 1 SYRINGE SUBCUTANEOUSLY ONCE DAILY Start: 10-24-2021 End: 01-22-2022 Enoxaparin (Lovenox) 40 mg/0 .4 mL syringe Discontinued 40 MG SC DAILY October 24, 2021 12:00am January 22, 2022 9:34am 21 day ethinyl estradiol 0.935864 mg/hr / etonogestrel 0.005 mg/hr vaginal system (20 sources) Progestin, Estrogen Start: 04-07-2018 End: 04-19-2019 Etonogestrel-Ethinyl Estradiol (Nuvaring) 0.12-0.015 mg/24 hr ring Discontinued 1 VAG RING VAGINAL every 4 weeks April 07, 2018 1:00am April 19, 2019 3:11pm 273 day ethinyl estradiol 0.766975 mg/hr / segesterone acetate 0.98953 mg/hr vaginal system (20 sources) Estrogen Start: 11-12-2019 End: 05-03-2020 Segesterone Ac-Ethin Estradiol (Annovera) 0.15-0.013 mg/24 hour ring Discontinued 1 VAG RING VAGINAL ONCE November 12, 2019 12:00am May 03, 2020 9:48am leave in place for 3 weeks of a 4-week cycle famotidine 20 mg oral tablet (9 sources) Histamine-2 Receptor Antagonist Start: 05-07-2022 End: 06-24-2022 take 1 tablet by mouth once daily Famotidine (Pepcid) 20 mg Tablet Discontinued 20 MG PO DAILY May 07, 2022 1:00am June 24, 2022 11:11am fluticasone propionate 0.05 mg/actuat metered dose nasal spray (20 sources) Corticosteroid Start: 03-14-2019 End: 06-07-2019 take 1 spray(s) nasal route once daily Fluticasone Propionate (Flonase Allergy Relief) 50 mcg/actuation spray,suspension Discontinued 2 SPRAY INTRANASAL DAILY 9.9 March 14, 2019 12:00am June 07, 2019 10:18am administer into each nostril furosemide 20 mg oral tablet (6 sources) Loop Diuretic Start: 05-12-2022 End: 06-24-2022 take 1 tablet by mouth twice daily Furosemide (Lasix) 20 mg tablet Discontinued 20 MG PO TWICE A DAY May 12, 2022 1:00am June 24, 2022 11:11am labetalol hydrochloride 100 mg oral tablet (6 sources) beta-Adrenergic Peace Start: 05-12-2022 End: 06-24-2022 take 100 mg by mouth twice daily Labetalol Discontinued 100 MG PO TWICE A DAY 60 May 12, 2022 1:00am June 24, 2022 11:11am levonorgestrel 0.454134 mg/hr intrauterine system (20 sources) Progestin, Progestin-contain ing Intrauterine Device Start: 05-03-2020 End: 04-23-2021 Levonorgestrel (Sarah) 14 mcg/24 hrs (3 yrs) 13.5 mg intrauterine device Discontinued 1 DEVICE INTRA-UTER ONCE May 03, 2020 1:00am April 23, 2021 12:22pm as a single dose medroxyPROGESTERone acetate 10 mg oral tablet (20 sources) Progestin Start: 06-18-2019 End: 07-21-2019 take 1 tablet by mouth once daily Medroxyprogesterone (Provera) 10 mg tablet Discontinued 10 MG PO DAILY June 18, 2019 1:00am July 21, 2019 10:02am Start: 04-19-2019 End: 06-07-2019 take 1 tablet by mouth once daily Medroxyprogesterone (Provera) 10 mg tablet Discontinued 10 MG PO DAILY April 19, 2019 1:00am June 07, 2019 10:19am naproxen 500 mg oral tablet (20 sources) Nonsteroidal Anti-inflammatory Drug Start: 06-10-2015 End: 04-07-2018 take 500 mg by mouth twice daily as needed Naproxen Discontinued 500 MG PO TWICE DAILY NEEDED June 10, 2015 1:00am April 07, 2018 6:19pm nitrofurantoin, macrocrystals 25 mg / nitrofurantoin, monohydrate 75 mg oral capsule (20 sources) Nitrofuran Antibacterial Start: 12-25-2020 End: 01-01-2021 take 1 capsule by mouth every twelve hours at mealtime Nitrofurantoin Monohyd/M-Cryst Discontinued 1 CAP PO Q12H 14 December 25, 2020 9:21am January 01, 2021 12:01am administer with a meal/food; swallow whole; do not open, crush, dissolve , or chew Start: 12-25-2018 End: 01-02-2019 take 1 capsule by mouth every twelve hours at mealtime Nitrofurantoin Monohyd/M-Cryst Discontinued 1 CAP PO Q12H 14 December 25, 2018 12:00am January 02, 2019 12:08am administer with a meal/food; swallow whole; do not open, crush, dissolve , or chew Start: 04-07-2018 End: 04-14-2018 take 1 capsule by mouth every twelve hours at mealtime Nitrofurantoin Monohyd/M-Cryst Discontinued 1 CAP PO Q12H 14 April 07, 2018 1:00am April 14, 2018 1:09am administer with a meal/food; swallow whole; do not open, crush, dissolve , or chew phentermine hydrochloride 37.5 mg oral tablet (20 sources) Sympathomimetic Amine Anorectic Start: 07-21-2019 End: 09-15-2019 take 1 tablet by mouth once daily Phentermine (Adipex-P) 37.5 mg tablet Discontinued 37.5 MG PO daily August 16, 2019 10:18am September 15, 2019 11:54am rivaroxaban 15 mg oral tablet (20 sources) Factor Xa Inhibitor Start: 04-16-2020 End: 01-04-2021 take 15 mg by mouth twice daily Rivaroxaban Discontinued 15 MG PO BID April 26, 2020 9:53am January 04, 2021 8:46am valACYclovir 1000 mg oral tablet (20 sources) Herpesvirus Nucleoside Analog DNA Polymerase Inhibitor, Herpes Simplex Virus Nucleoside Analog DNA Polymerase Inhibitor, Herpes Zoster Virus Nucleoside Analog DNA Polymerase Inhibitor Start: 09-09-2018 End: 09-09-2018 take 1 tablet by mouth twice daily Valacyclovir Discontinued 2000 MG PO TWICE A DAY 2 September 09, 2018 12:00am September 09, 2018 3:58pm for 2 doses (4 tablets) only; save additional 4 tablets if recurring exacerbation occurs at a later date Start: 09-09-2018 End: 09-10-2018 take 2 tablets by mouth twice daily Valacyclovir Discontinued 2000 MG PO TWICE A DAY 8 September 09, 2018 12:00am September 10, 2018 12:07am 2 tablets twice daily for one day; save additional 4 tablets for recurring breakout at a later date Problems Problem Classification Problem Date Documented Da te Episodic/Chronic Anxiety disorders (1 source) Anxiety disorder, unspecified; Translations: [Anxiety disorder, unspecified] Onset: 08-09-2024 Chronic Cancer of cervix (20 sources) Low grade squamous intraepithelial lesion on cervical Papanicolaou smear; Translations: [Low grade squamous intraepithelial lesion on cytologic smear of cervix (LGSIL)] Episodic Diabetes mellitus without complication (20 sources) Abnormal glucose level; Translations: [Other abnormal glucose] Episodic Hypertension complicating ; childbirth and the puerperium (7 sources) Hypertensive disorder; Translations: [Unspecified maternal hypertension, complicating the puerperium] Chronic Hypertension complicating ; childbirth and the puerperium (9 sources) -induced hypertension; Translations: [Gestational [-induced] hypertension without significant proteinuria, unspecified trimester] 05-08-2022 Episodic Mood disorders (1 source) Mood disorders; Translations: [Depression, unspecified] Onset: 08-09-2024 Open wounds of extremities (5 sources) Avulsion of toenail; Translations: [Unspecified open wound of unspecified toe(s) with damage to nail, initial encounter] 11-09-2022 Episodic Other complications of ; puerperium affecting management of mother (4 sources) delivery - delivered; Translations: [Encounter for delivery without indication] Episodic Other complications of ; puerperium affecting management of mother (5 sources) Deliveries by ; Translations: [Encounter for delivery without indication] 05-23-2022 Episodic Other complications of (20 sources) High risk ; Translations: [Supervision of high risk , unspecified, unspecified trimester] 05-07-2022 Episodic Other complications of (20 sources) Supervision of high risk , unspecified, unspecified trimester; Translations: [Supervision of unspecified high-risk ] Episodic Other female genital disorders (4 sources) Abnormal uterine bleeding; Translations: [Abnormal uterine and vaginal bleeding, unspecified] 06-26-2023 Chronic Other female genital disorders (4 sources) Abnormal uterine and vaginal bleeding, unspecified; Translations: [Unspecified disorders of menstruation and other abnormal bleeding from female genital tract] 06-26-2023 Chronic Other nutritional; endocrine; and metabolic disorders (20 sources) Body mass index 30+ - obesity; Translations: [Body mass index (BMI) 36.0-36.9, adult] 01-07-2022 Chronic Other nutritional; endocrine; and metabolic disorders (19 sources) Body mass index (BMI) 36.0-36.9, adult; Translations: [Body Mass Index 36.0-36.9, adult] Chronic Other and delivery including normal (20 sources) Dichorionic diamniotic twin ; Translations: [Twin , dichorionic/diamnioti c, unspecified trimester] Episodic Other screening for suspected conditions (not mental disorders or infectious disease) (1 source) Encounter for screening for malignant neoplasm of cervix; Translations: [Encounter for screening for malignant neoplasm of cervix] Onset: 07-13-2024 Episodic Other upper respiratory infections (1 source) Acute maxillary sinusitis; Translations: [Acute maxillary sinusitis, unspecified] Episodic Phlebitis; thrombophlebitis and thromboembolism (20 sources) Deep venous thrombosis; Translations: [Acute embolism and thrombosis of unspecified deep veins of unspecified lower extremity] Episodic Residual codes; unclassified (20 sources) Family history of Jack syndrome; Translations: [Family history of other congenital malformations, deformations and chromosomal abnormalities] 05-07-2022 Episodic Residual codes; unclassified (20 sources) FH: Congenital heart disease; Translations: [Family history of other congenital malformations, deformations and chromosomal abnormalities] 05-07-2022 Episodic Residual codes; unclassified (15 sources) Down's child in family; Translations: [Family history of other congenital malformations, deformations and chromosomal abnormalities] Episodic Residual codes; unclassified (20 sources) Family history of cleft palate; Translations: [Family history of other congenital malformations, deformations and chromosomal abnormalities] 05-07-2022 Episodic Residual codes; unclassified (20 sources) Family history of other congenital malformations, deformations and chromosomal abnormalities; Translations: [Family history of congenital anomalies] Episodic Residual codes; unclassified (20 sources) History of uterine scar from previous surgery; Translations: [Other postprocedural status] Episodic Residual codes; unclassified (4 sources) Acquired absence of other genital organ(s); Translations: [Acquired absence of organ, genital organs] Episodic Residual codes; unclassified (5 sources) FH: Chromosomal anomaly; Translations: [Family history of other congenital malformations, deformations and chromosomal abnormalities] 05-07-2022 Episodic Syncope (20 sources) Syncope; Translations: [Syncope and collapse] Episodic Thyroid disorders (20 sources) Hypothyroidism; Translations: [Hypothyroidism, unspecified] Onset: 06-28-2024 Chronic Viral infection (20 sources) Herpes simplex type 1 infection; Translations: [Herpesviral infection, unspecified] Episodic Results Test Name Value Interpretation Reference Range Facility Reexaminer Office Visit Reporton 10-04-2024 Reexaminer Office Visit Report [facility] [address], [address] [place] [address] OFFICE VISIT Date of Service: 10/04/24 MR#: [id number] Acct: [id number] Name: ERIN GARCIA Rep #: [id number] : 1990 Provider: Dr. Ami bran MD Age/Sex: 34/F Location: [facility] Status: Signed Intake Vital Signs 08/09/24 09:19 10/04/24 14:05 10/04/24 14:07 Height 5 ft 11 in 5 ft 11 in 5 ft 11 in Weight: 263 lb 6 oz 269 lb 6 oz BMI 36.7 37.5 BP 132/87 H 137/86 H Intake Visit Reasons: 8wk med check Draw Machine Operator Required: No Is patient in pain?: No Allergies adhesive tape (tape) Allergy (Verified 10/04/24 14:05) Other latex Allergy (Verified 10/04/24 14:05) Other Anesthetics - Amide Type - Select A Adverse Reaction (Severe, Verified 10/04/24 14:05) Vomiting Medications ???Medication ???Instructions ???Recorded ???Confirmed ???Type levothyroxine 75 mcg tablet 75 mcg PO QDAY 11/11/23 08/09/24 H istory buspirone 5 mg tablet 5 mg PO BID #60 tabs 09/14/24 Rx fluoxetine 20 mg capsule (Prozac) 20 mg PO QDAY 10/04/24 10/04/24 H istory Is last menstrual period known: Yes Last Menstrual Period: 09/20/24 Post menopausal: No Patient : No : No PFSH Medical History Impetigo Gestational hypertension delivery delivered Family history of hearing loss at age younger than 7 years Thyroid disorder Anxiety Depression Hx of cardiac murmur H/O blood clots Surgical History H/O bilateral salpingectomy History of placement of ear tubes History of colposcopy History of tonsillectomy History of Family History Mother Age related osteoporosis CVA (cerebral vascular accident) Myeloma Anesthesia complication History of blood clots Cancer Grandfather Alcoholism Asthma Diabetes Myocardial infarction 40's Respiratory disease Heart disease Grandfather Myocardial infarction 40's Grandmother Anesthesia complication Arthritis Breast cancer Epilepsy Skin cancer CVA (cerebral vascular accident) Father Arthritis Depression Hypertension High cholesterol Thyroid disorder Daughter Jack syndrome Thyroid disorder Social History adopted: No household members: significant other number of children: 3 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 she is also wanting to start with weight management again she previously took adipex and did a BLAST FURNACE KEEPER with a fitness coach and lost weight successfully. Female Reproductive History Last Menstrual Period: 09/20/24 History 2 Elective abortions Hx Para 3 Spontaneous abortions Hx # Term Pregnancies Ectopic pregnancies Hx # Pregnancies 1 Multiple births 1 # of living children 3 Past Pregnancies Del. 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 ROS Const Constitutional: Denies fatigue, fever(s), headache(s), increased appetite, poor appetite, weight gain or weight loss GI GI: Reports as per HPI; Denies abdominal pain, constipation, nausea or vomiting : Reports as per HPI; Denies difficulty voiding, dysuria, hematuria, pelvic pain, urinary frequency, urinary incontinence, urinary hesitancy, urinary urgency, vaginal discharge, vaginal dryness, vaginal odor, vaginal pruritus or other Exam Const General: cooperative, healthy appearing, comfortable, no a (more content not included)... Normal [facility] Reexaminer Office Visit Reporton 08-09-2024 Reexaminer Office Visit Report [facility]'s [address], [address] [place] [address] OFFICE VISIT Date of Service: 08/09/24 MR#: [id number] Acct: [id number] Name: ERIN GARCIA Rep #: [id number] : 1990 Provider: Dr. Ami bran MD Age/Sex: 33/F Location: [facility] Status: Signed Intake Vital Signs 06/28/24 09:31 08/04/24 07:57 08/09/24 09:19 Height 5 ft 11 in 5 ft 11 in 5 ft 11 in Weight: 263 lb 6 oz BMI 36.7 BP 132/87 H Intake Visit Reasons: 6 wk med check Draw Machine Operator Required: No Is patient in pain?: No Feel stressed/tense/nervous/anx ious/difficulty sleeping: to some extent (Prozac has helped take the edge off but anxiety is still present) Allergies adhesive tape (tape) Allergy (Verified 08/09/24 09:21) Other latex Allergy (Verified 08/09/24 09:21) Other Anesthetics - Amide Type - Select A Adverse Reaction (Severe, Verified 08/09/24 09:21) Vomiting Medications ???Medication ???Instructions ???Recorded ???Confirmed ???Type levothyroxine 75 mcg tablet 75 mcg PO QDAY 11/11/23 08/09/24 H istory fluoxetine 40 mg capsule 40 mg PO DAILY #30 caps 08/09/24 0 08/09/24 Rx Is last menstrual period known: Yes Last Menstrual Period: 07/19/24 Post menopausal: No Patient : No : No PFSH Medical History Impetigo Gestational hypertension delivery delivered Family history of hearing loss at age younger than 7 years Thyroid disorder Anxiety Depression Hx of cardiac murmur H/O blood clots Surgical History H/O bilateral salpingectomy History of placement of ear tubes History of colposcopy History of tonsillectomy History of Family History (Updated 08/04/24 @ 07:57 by Aisha Mosley LPN) Mother Age related osteoporosis CVA (cerebral vascular accident) Myeloma Anesthesia complication History of blood clots Cancer Grandfather Alcoholism Asthma Diabetes Myocardial infarction 40's Respiratory disease Heart disease Grandfather Myocardial infarction 40's Grandmother Anesthesia complication Arthritis Breast cancer Epilepsy Skin cancer CVA (cerebral vascular accident) Father Arthritis Depression Hypertension High cholesterol Thyroid disorder Daughter Jack syndrome Thyroid disorder Social History adopted: No household members: significant other number of children: 3 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 Depression Follow-Up Change in condition/interval history: improved since starting medicine but not where we should be Sleep: increased (mproved) Enjoy normal activities: No Feelings of guilt: Yes Feelings of worthlessness: Yes Energy level: decreased Describe your mood: okay overall, improving but not where we need to be. sleeping better, not crying as much. Concentration: baseline Appetite: unchanged Psychomotor: increased Feelings of hopelessness: Yes Thoughts of harming yourself: No Thoughts of ending your life: No History of suicide attempt: No Female Reproductive History Last Menstrual Period: 07/19/24 History 2 Elective abortions Hx Para 3 Spontaneous abortions Hx # Term Pregnancies Ectopic pregnancies Hx # Pregnancies 1 Multiple births 1 # of living children 3 Past Pregnancies Del. 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 ROS Const Constitutional: Reports as per HPI GI GI: Reports abdominal pain and change in bowel habits Exam Const General: cooperative, healthy appearing, c (more content not included)... Normal [facility] Surgery Visit Reporton 08-04 Surgery Visit Report [facility] [address] [place] [address] OFFICE VISIT Date of Service: 08/04/24 MR#: [id number] Acct: [id number] Name: ERIN GARCIA Rep #: [id number] : 1990 Provider: Dr. Art farah MD Age/Sex: 33/F Location: [facility] Status: Signed Intake Vital Signs 06/28/24 09:31 08/04/24 07:57 Height 5 ft 11 in 5 ft 11 in Weight: 263 lb 266 lb 2 oz BMI 36.6 37.0 BP 123/77 H 143/80 H Blood Pressure Location Rt brachial Position Sitting Respiration 18 Pulse 63 Pulse Source Monitor Temp 97.2 F L Temp Source Temporal Pulse Oximetry (%) 99 Oxygen Delivery Method room air Intake Visit Reasons: THYROID NODULE Chief Complaint: thyroid nodule Accompanied by: fiance Is patient in pain?: No Allergies adhesive tape (tape) Allergy (Verified 08/04/24 07:57) Other latex Allergy (Verified 08/04/24 07:57) Other Anesthetics - Amide Type - Select A Adverse Reaction (Severe, Verified 08/04/24 07:57) Vomiting Medications ???Medication ???Instructions ???Recorded ???Confirmed ???Type levothyroxine 75 mcg tablet 75 mcg PO QDAY 11/11/23 08/04/24 H istory fluoxetine 20 mg capsule (Prozac) 20 mg PO DAILY #30 caps 06/28/24 08/04/24 Rx PFSH Medical History Impetigo Gestational hypertension delivery delivered Family history of hearing loss at age younger than 7 years Thyroid disorder Anxiety Depression Hx of cardiac murmur H/O blood clots Surgical History H/O bilateral salpingectomy History of placement of ear tubes History of colposcopy History of tonsillectomy History of Family History (Updated 08/04/24 @ 07:57 by Aisha Mosley LPN) Mother Age related osteoporosis CVA (cerebral vascular accident) Myeloma Anesthesia complication History of blood clots Cancer Grandfather Alcoholism Asthma Diabetes Myocardial infarction 40's Respiratory disease Heart disease Grandfather Myocardial infarction 40's Grandmother Anesthesia complication Arthritis Breast cancer Epilepsy Skin cancer CVA (cerebral vascular accident) Father Arthritis Depression Hypertension High cholesterol Thyroid disorder Daughter Jack syndrome Thyroid disorder Social History adopted: No household members: significant other number of children: 3 current occupation: [employer] Smoking Status: Never smoker alcohol intake: never substance use type: does not use caffeine: Yes (limited) Type: tea what type of physical activity do you participate in: walking seatbelt use: always do you feel safe at home: Yes additional social history: Vicky Srivastava HPI HPI HPI: Patient is a 33-year-old female who presents for evaluation of thyroid nodules. They are referred for surgical consultation from PCP, Dr. Stern, and RADIAL SAW OPERATOR, Dr. Lopez. This was discovered during a recent physical exam that was performed after complaints of an inability to lose weight despite dieting. They do experience difficulty with swallowing and detail this to say that a have some difficulty swallowing her own saliva when lying flat at night. They do not complain of a new cough. They do n ot appreciate new voice changes. They do have a history of snoring/sleep apnea. As above, their weight has been increased 30 to 40 pounds since the delivery of twins 2 years ago and they have a history of an inability to lose despite intentional effort (dieting). There is a history of recent fatigue, however, patient qualifies this based on a personal experience of insomnia as well as her role caring for twin toddlers. They do not have a history of heat or cold intolerance. Other symptoms include: Pertinent positives: Hot flashes and some visual changes that occur at all times of the day and whether she wears contacts or not but have been evaluated by optometry and no cause described. They do have a family history of thyroid disorders o sheering about a father with hypothyroidism and a daughter with hypothyroidism (as well as Jack syndrome) Previous work-up has included thyroid ultrasound. This study was performed on 07/07/2024 and showed a right thyroid lobe measuring 5.2 x 2.1 x 2.0 cm. Within this lobe radiology identified a nodule measuring 0.9 x 0.9 x 0.6 cm with a hyperechoic appearance in the mid pole. No TI-RADS rating was given. The left thyroid lobe measured 5.6 x 2.1 x 1.9 cm. Within this lobe radiology identified a nodule measuring 0.9 x 0.7 x 0.6 cm with a similar hyperechoic appearance to the right sided nodule. Once again no TI-RADS rating was given for this appearance. An FNA has not been perfor (more content not included)... Normal [facility] Thyroidon 07-07-2024 Thyroid [facility] [address] [place] [id number] Thyroid MR#: [id number] Acct: [id number] Name: ERIN GARCIA Rep #: [id number] : 1990 F 33 From: Kris yip MD PCP: Dr. Dee Stern MD Status: REG CLI Study: Thyroid Date of Exam: 07/07/24 Exam# [id number] Ordering Dr: Ami Lopez PROCEDURE: THYROID REASON FOR EXAM: History of thyroid goiter. TECHNIQUE: Thyroid ultrasound COMPARISON: None. FINDINGS: Right thyroid lobe measures 5.2 cm x 2.1 cm x 2 cm. Left thyroid lobe measures 5.6 cm x 2.1 cm x 1.9 cm. Isthmus thickness is5 mm. Thyroid Size: Diffusely enlarged Background Echotexture: Heterogeneous Thyroid Nodules: There is a 9 mm x 9 mm x 6 mm slightly hyperechoic nodule in the midpole of the right lobe. A similar-appearing nodule measuring 9 mm x 7 mm x 6 mm is seen in the left lobe. US/Thyroid IMPRESSION: Enlarged goiter is thyroid as described with a subcentimeter densities in both lobe. Follow-up recommended. Reading Location: [place] [address] CC: Dr. Dee Stern MD; Dr. Ami Lopez MD Furniture Polisher: Signed Normal [facility] PAP IG HPV APTIMA 16/18,45on 07-01-2024 ADEQ Comment Normal . [facility] Comment on above: Order Comment: Speci men Comment: [id number] Specimen Comment: Source.............Cervix Specimen Comment: No. of containers..01 ThinPrep Vial Result Comment: Sati sfactory for evaluation. Endocervical and/or squamous metaplastic cells (endocervical component) are present. Performed By: #### L 7400.0280 #### [facility] [address] [place], [place], [id number] COMM . Normal . [facility] Comment on above: Order Comment: Speci men Comment: [id number] Specimen Comment: Source.............Cervix Specimen Comment: No. of containers..01 ThinPrep Vial Performed By: #### L 7400.0280 #### [facility] [address] [place], [place], [id number] COMMENT Comment Normal . [facility] Comment on above: Order Comment: Speci men Comment: [id number] Specimen Comment: Source.............Cervix Specimen Comment: No. of containers..01 ThinPrep Vial Result Comment: This liquid based ThinPrep(R) pap test was screened with the use of an image guided system. Performed By: #### L 7400.0280 #### [facility] [address] [place], [place], [id number] DIAG Comment Normal . [facility] Comment on above: Order Comment: Speci men Comment: [id number] Specimen Comment: Source.............Cervix Specimen Comment: No. of containers..01 ThinPrep Vial Result Comment: NEGA TIVE FOR INTRAEPITHELIAL LESION OR MALIGNANCY. Performed By: #### L 7400.0280 #### [facility] [address] [place], [place], [address] HPV APTIMA, HR Negative Normal Negative [facility] Comment on above: Order Comment: Speci men Comment: [id number] Specimen Comment: Source.............Cervix Specimen Comment: No. of containers..01 ThinPrep Vial Result Comment: This nucleic acid amplification test detects fourteen high- risk HPV types (16,18,31,33,35,39,45,51,52,56,58,59,66,68) without differentiation. Performed By: #### L 7400.0280 #### [facility] [address] [place], [place], [id number] HPV Noa Rfx Comment Normal . [facility] Comment on above: Order Comment: Speci men Comment: [id number] Specimen Comment: Source.............Cervix Specimen Comment: No. of containers..01 ThinPrep Vial Result Comment: Crit eria not met, HPV Genotype not performed. Performed at: - [address] [id number] District Traffic Chief: Nuria Chase MD, Phone: [phone] Performed at: = - [address] [id number] District Traffic Chief: Nuria Chase MD, Phone: [phone] Performed By: #### L 7400.0280 #### [facility] [address] [place], [place], [id number] PAPSMR Comment Normal . [facility] Comment on above: Order Comment: Speci men Comment: [id number] Specimen Comment: Source.............Cervix Specimen Comment: No. of containers..01 ThinPrep Vial Result Comment: The Pap smear is a screening test designed to aid in the detection of premalignant and malignant conditions of the uterine cervix. It is not a diagnostic procedure and should not be used as the sole means of detecting cervical cancer. Both false-positive and false-negative reports do occur. Performed By: #### L 7400.0280 #### [facility] [address] [place], [place], [address] PERFORM Comment Normal . [facility] Comment on above: Order Comment: Speci men Comment: [id number] Specimen Comment: Source.............Cervix Specimen Comment: No. of containers..01 ThinPrep Vial Result Comment: Aminah Ocampo, Special Population Paraprofessional (ASCP) Performed By: #### L 7400.0280 #### [facility] [address] [place], [place], [id number] Vitamin D 1,25-Dihydroxyon 0 06-30-2024 VIT D 1,25 DIHY 37.7 pg/mL Normal 24.8-81.5 [facility] Comment on above: Result Comment: Perf ormed at: [facility] [address] [id number] District Traffic Chief: Ernst Phipps MD, Phone: [phone] Performed By: #### L 501.07651, M957.5649, L506.0400, L3300.3410, L3300.0902 #### [facility] [address] [place], [place], [address] Thyroid Peroxidase ABon 02-0 THYR PEROX AB 66 IU/mL High 0-34 [facility] Comment on above: Result Comment: Perf ormed at: - [facility] [address] [id number] District Traffic Chief: Iván Medrano PhD, Phone: [phone] Performed By: #### L 912.48064, L501.9520, L506.0400, L3300.6900, L3300.0960 #### [facility] [address] [place], [place], [address] Free T3on 06-28-2024 Free T3 [Mass/Vol] 3.0 pg/mL Normal 2.18-3.98 [facility] Comment on above: Performed By: #### L 501.71579, L501.9520, L506.0400, L3300.6900, L3300.0960 #### [facility] [address] [place], [address] Reexaminer Office Visit Reporton 06-28-2024 Reexaminer Office Visit Report [facility] [address], [address] [place] [address] OFFICE VISIT Date of Service: 06/28/24 MR#: [id number] Acct: [id number] Name: ERIN GARCIA Rep #: [id number] : 1990 Provider: Dr. Ami bran MD Age/Sex: 33/F Location: [facility] Status: Signed Intake Vital Signs 06/26/23 09:55 06/28/24 09:31 Height 5 ft 11 in 5 ft 11 in Weight: 263 lb BMI 36.6 BP 123/77 H Intake Visit Reasons: Annual ([employer]) Draw Machine Operator Required: No Is patient in pain?: Yes (not having pain today, but is having right pelvic pain before menses) Allergies adhesive tape (tape) Allergy (Verified 06/28/24 09:33) Other latex Allergy (Verified 06/28/24 09:33) Other Anesthetics - Amide Type - Select A Adverse Reaction (Severe, Verified 06/28/24 09:33) Vomiting Medications ???Medication ???Instructions ???Recorded ???Confirmed ???Type levothyroxine 75 mcg tablet 75 mcg PO QDAY 11/11/23 06/28/24 H istory fluoxetine 20 mg capsule (Prozac) 20 mg PO DAILY #30 caps 06/28/24 06/28/24 Rx Is last menstrual period known: Yes Last Menstrual Period: 06/17/24 Post menopausal: No Patient : No : No [facility] Medical History Impetigo Gestational hypertension delivery delivered Family history of hearing loss at age younger than 7 years Thyroid disorder Anxiety Depression Hx of cardiac murmur H/O blood clots Surgical History H/O bilateral salpingectomy History of placement of ear tubes History of colposcopy History of tonsillectomy History of Family History Mother Age related osteoporosis CVA (cerebral vascular accident) Myeloma Anesthesia complication History of blood clots Cancer Grandfather Alcoholism Asthma Diabetes Myocardial infarction 40's Respiratory disease Heart disease Grandfather Myocardial infarction 40's Grandmother Anesthesia complication Arthritis Breast cancer Epilepsy Skin cancer CVA (cerebral vascular accident) Father Arthritis Depression Hypertension High cholesterol Thyroid disorder Daughter Jack syndrome Social History (Updated 06/28/24 @ 09:39 by Khadijah Muprhy) adopted: No household members: significant other number of children: 3 current occupation: [employer] Smoking Status: Never smoker alcohol intake: never substance use type: does not use caffeine: Yes (limited) Type: tea what type of physical activity do you participate in: walking seatbelt use: always do you feel safe at home: Yes additional social history: Vicky Srivastava History 2 Elective abortions Hx Para 3 Spontaneous abortions Hx # Term Pregnancies Ectopic pregnancies Hx # Pregnancies 1 Multiple births 1 # of living children 3 Past Pregnancies Del. 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 HPI Encounter for routine gynecological examination Details: ERIN GARCIA is a 33 year old who presents for annual exam. having increased anxiety and ddepression Last PAP: 06/18/2021 - normal History of abnormal PAP: Last mammogram: not due History of abnormal mammogram: Colon cancer screening: not due Other preventative health care screenings: PCP is [facility] Female Reproductive History Last Menstrual Period: 06/17/24 Cycle Length: 21-35 Bleeding Duration: 8 Questions: metorrhagia: No, sexually active: Yes, dyspareunia: No and PCB: No ROS Const Constitutional: Reports system reviewed and no additional complaints, except as documented Cardio Card: Reports system reviewed and no additional complaints, except as documented Resp Resp: Reports system reviewed and no additional complaints, except as documented GI GI: Reports system reviewed and no additional complaints, except as documented : Reports system reviewed and no additional complaints, except as documented and other (hemorrhoids); Denies di (more content not included)... Normal [facility] T4 Free Directon 06-28-2024 T4 FREE DIRECT 1.23 ng/dL Normal 0.76-1.46 [facility] Comment on above: Performed By: #### L 501.11505, L501.9520, L506.0400, L3300.6900, L3300.0960 #### [facility] [address] [place], [place], [id number] Thyroid Stim Hormone (TSH)on 06-28-2024 TSH 2.080 uIU/mL Normal 0.358-3.740 [facility] Comment on above: Performed By: #### L 501.69629, L501.9520, L506.0400, L3300.6900, L3300.0960 #### [facility] [address] [place], [place], [id number] Urgent Care Visit Reporton 0 11-11-2023 Urgent Care Visit Report [facility] [address], [address] [place] [address] OFFICE VISIT Date of Service: 11/11/23 MR#: [id number] Acct: [id number] Name: ERIN GARCIA Rep #: [id number] : 1990 Provider: TONI Peralta Age/Sex: 33/F Location: [facility] Status: Signed Intake Vital Signs 06/26/23 09:55 11/11/23 17:13 Height 5 ft 11 in BP 132/92 H Blood Pressure Location Rt brachial Position Sitting Respiration 14 Pulse 86 Pulse Source Monitor Temp 98.4 F Temp Source Temporal Pulse Oximetry (%) 99 Oxygen Delivery Method room air Intake Visit Reasons: R EYE COMPLAINT/IRRITATION Chief Complaint: multiple red raised areas on right eyelid Draw Machine Operator Required: No Accompanied by: Self Is patient in pain?: No Allergies adhesive tape (tape) Allergy (Verified 11/01/22 22:02) Other latex Allergy (Verified 11/01/22 22:02) Other Anesthetics - Amide Type - Select A Adverse Reaction (Severe, Verified 01/09/23 09:11) Vomiting Medications ???Medication ???Instructions ???Recorded ???Confirmed ???Type amoxicillin 500 mg tablet 500 mg PO TID #30 tabs 11/11/23 11/11/23 Rx levothyroxine 75 mcg tablet 75 mcg PO QDAY 11/11/23 11/11/23 History PFSH Medical History (Updated 11/11/23 @ 17:24 by TONI Jarrell) Impetigo Gestational hypertension delivery delivered Family history of hearing loss at age younger than 7 years Thyroid disorder Anxiety Depression Hx of cardiac murmur H/O blood clots Surgical History H/O bilateral salpingectomy History of placement of ear tubes History of colposcopy History of tonsillectomy History of Family History Mother Age related osteoporosis CVA (cerebral vascular accident) Myeloma Anesthesia complication History of blood clots Cancer Grandfather Alcoholism Asthma Diabetes Myocardial infarction 40's Respiratory disease Heart disease Grandfather Myocardial infarction 40's Grandmother Anesthesia complication Arthritis Breast cancer Epilepsy Skin cancer CVA (cerebral vascular accident) Father Arthritis Depression Hypertension High cholesterol Thyroid disorder Daughter Jack syndrome Social History adopted: No household members: significant other number of children: 1 current occupational status: employed and previously employed current occupation: [employer] Smoking Status: Never smoker alcohol intake: never substance use type: does not use caffeine: Yes (limited) Type: tea what type of physical activity do you participate in: walking seatbelt use: always do you feel safe at home: Yes additional social history: Vicky Srivastava HPI HPI Chief Complaint: multiple red raised areas on right eyelid Details: ERIN GARCIA, is a 33 F who presents to the office today for 3-week history of erythematous open lesion to center of right external upper eyelid of unknown etiology. Patient notes she has been us ing her facial sanitary wipes to cleanse the same area which she notes aquino and irritates the same. She notes intermittent crusting of the same region. No eye complaints or vision changes. No [id number] products taken to assist. No other associated symptoms and no other alleviating/aggravating factors. ROS Const Constitutional: No other (As above) Exam Const General: cooperative, healthy appearing and no acute distress Orientation: alert and awake HENMT Head: normal to inspection Ears: hearing grossly normal bilaterally and external ears normal Nose: external nose normal Eyes General: appearance normal, both eyes and all related structures Other: Except right external upper eyelid center erythematous open lesion with trace honey colored crusting Neck Neck: normal visual inspection, no lymphadenopathy and no meningeal signs Chest Chest palpation inspection: normal inspection of the chest Resp Effort Inspection: normal respiratory effort and able to speak in complete sentences Cardio Rate: regular rate Pulses: radial pulses present Skin General: no rashes or lesions noted Neuro General: patient alert, patient awake and patient oriented x3 Cognition: normal cognition Speech: speech normal Psych Appearance: grossly normal Mental Status: mental status grossly normal Mood: congruent mood Affect: normal affect Speech and Movement: speech and movement normal Attitude: cooperative Coding Level of Care Code Off vis,est,level 3 Diagnoses Impetigo L01.00 Assessment and Plan Assessment and Plan (1) Impetigo: Status: Acute Plan: Amoxicillin as prescribed today. Skin care measures as instr (more content not included)... Normal [facility] Absolute lymphocyte countOrd ered By: Dee Stern on 2023 Lymphocytes Auto (Unsp spec) [#/Vol] 2.01 10*3/uL 0.83-4.51 [facility] Automated lymphocyte count a s percentage of total leukocytesOrdered By: Dee Stern on 2023 Lymphocytes/100 WBC Auto (Unsp spec) 30.2 % 19-41 [facility] Basophil percentageOrdered B y: Dee Stern on 2023 Basophils/100 WBC (Bld) 0.9 % 0-1 [facility] Eosinophils/100 WBC (Bld) 2.1 % 0-5 [facility] Hemoglobin (Bld) [Mass/Vol] 13.9 g/dL 12.0-15.0 [facility] Monocytes/100 WBC (Bld) 6.2 % 0-10 [facility] Neutrophils (Bld) [#/Vol] 4.0 10*3/uL 2.0-7.7 [facility] Neutrophils/100 WBC (Bld) 60.1 % 47-70 [facility] WBC (Bld) [#/Vol] 6.7 10*3/uL 4.4-11.0 [facility] Determination of erythrocyte mean corpuscular volume (MCV)Ordered By: Dee Stern on 2023 MCV (RBC) [Entitic vol] 78.8 fL 81-99 [facility] Erythrocyte distribution wid th ratioOrdered By: Dee Stern on 2023 Erythrocyte distribution width (RBC) [Ratio] 13.6 % 11.6-14.6 [facility] Erythrocyte distribution wid th standard deviationOrdered By: Dee Stern on 2023 Erythrocyte distribution width (RBC) [Entitic vol] 38.5 fL 35.1-43.9 [facility] Hematocrit Auto (Bld) [Volum e fraction]Ordered By: Dee Stern on 2023 Hematocrit (Bld) [Volume fraction] 43.0 % 37-47 [facility] Immature granulocytes/100 WB C Auto (Bld)Ordered By: Dee Stern on 2023 Immature granulocytes/100 WBC (Bld) 0.500 % 0.0-0.9 [facility] Comment on above: IG% - Immature Granu locytes (promyelocytes, myelocytes and metamyelocytes) > 1% indicates that a LEFT SHIFT is Present. Iron measurement (mass/mass) Ordered By: Dee Stern on 2023 Iron (Unsp spec) [Mass/Mass] 80 ug/dL 50-170 [facility] Laboratory - Chemistry and C hemistry - challengeOrdered By: Dee Stern on 2023 Ferritin [Mass/Vol] 15 ng/mL 8-252 [facility] Laboratory - Hematology and Cell countsOrdered By: Dee Stern on 2023 MCH (RBC) [Entitic mass] 25.5 pg 27.0-32.0 [facility] MCHC (RBC) [Mass/Vol] 32.3 g/dL 32-36 [facility] Nucleated RBC/100 WBC (Bld) [Ratio] 0 % 0-5 [facility] Platelet mean volume (Bld) [Entitic vol] 10.2 fL 6.2-12.0 [facility] Platelets (Bld) [#/Vol] 237 10*3/uL 150-450 [facility] No Panel InformationOrdered By: Dee Stern on 2023 Total Iron Binding Capacity 473 ug/dL 250-450 [facility] RBC Auto (Bld) [#/Vol]Ordere d By: Dee Stern on 2023 RBC (Bld) [#/Vol] 5.46 10*6/uL 4.2-5.4 [facility] Serum or plasma iron saturat ion measurement (mass fraction)Ordered By: Dee Stern on 2023 Iron saturation [Mass fraction] 16.9 % 15.0-55.0 [facility] Serum or plasma thyroid stim ulating hormone (TSH) measurement (units/volume)Ordered By: Dee Stern on 03-26-2024 TSH Qn 2.60 uIU/mL 0.358-3.74 [facility] Absolute lymphocyte countOrd ered By: Mayelin Bolden on 06-26-2023 Lymphocytes Auto (Unsp spec) [#/Vol] 2.50 10*3/uL 0.83-4.51 [facility] Automated lymphocyte count a s percentage of total leukocytesOrdered By: Mayelin Bolden on 06-26-2023 Lymphocytes/100 WBC Auto (Unsp spec) 26.9 % 19-41 [facility] Basophil percentageOrdered B y: Mayelin Bolden on 06-26-2023 Basophils/100 WBC (Bld) 0.5 % 0-1 [facility] Eosinophils/100 WBC (Bld) 2.3 % 0-5 [facility] Hemoglobin (Bld) [Mass/Vol] 14.1 g/dL 12.0-15.0 [facility] Monocytes/100 WBC (Bld) 5.9 % 0-10 [facility] Neutrophils (Bld) [#/Vol] 5.9 10*3/uL 2.0-7.7 [facility] Neutrophils/100 WBC (Bld) 63.9 % 47-70 [facility] WBC (Bld) [#/Vol] 9.3 10*3/uL 4.4-11.0 [facility] Determination of erythrocyte mean corpuscular volume (MCV)Ordered By: Mayelin Bolden on 06-26-2023 MCV (RBC) [Entitic vol] 77.6 fL 81-99 [facility] Erythrocyte distribution wid th ratioOrdered By: Mayelin Bolden on 06-26-2023 Erythrocyte distribution width (RBC) [Ratio] 14.1 % 11.6-14.6 [facility] Erythrocyte distribution wid th standard deviationOrdered By: Mayelin Bolden on 06-26-2023 Erythrocyte distribution width (RBC) [Entitic vol] 38.8 fL 35.1-43.9 [facility] Hematocrit Auto (Bld) [Volum e fraction]Ordered By: Mayelin Bolden on 06-26-2023 Hematocrit (Bld) [Volume fraction] 44.3 % 37-47 [facility] Immature granulocytes/100 WB C Auto (Bld)Ordered By: Mayelin Bolden on 06-26-2023 Immature granulocytes/100 WBC (Bld) 0.500 % 0.0-0.9 [facility] Comment on above: IG% - Immature Granu locytes (promyelocytes, myelocytes and metamyelocytes) > 1% indicates that a LEFT SHIFT is Present. Laboratory - Hematology and Cell countsOrdered By: Mayelin Bolden on 06-26-2023 MCH (RBC) [Entitic mass] 24.7 pg 27.0-32.0 [facility] MCHC (RBC) [Mass/Vol] 31.8 g/dL 32-36 [facility] Nucleated RBC/100 WBC (Bld) [Ratio] 0 % 0-5 [facility] Platelets (Bld) [#/Vol] 249 10*3/uL 150-450 [facility] Platelet mean volume Farhad-Ec ker (Bld) [Entitic vol]Ordered By: Mayelin Bolden on 06-26-2023 Platelet mean volume (Bld) [Entitic vol] 9.9 fL 6.2-12.0 [facility] RBC Auto (Bld) [#/Vol]Ordere d By: Mayelin Bolden on 06-26-2023 RBC (Bld) [#/Vol] 5.71 10*6/uL 4.2-5.4 [facility] Serum or plasma thyroid stim ulating hormone (TSH) measurement (units/volume)Ordered By: Mayelin Bolden on 06-26-2023 TSH Qn 4.70 uIU/mL 0.358-3.74 [facility] Absolute lymphocyte countOrd ered By: Dee Stern on 01-16-2023 Lymphocytes Auto (Unsp spec) [#/Vol] 1.91 10*3/uL 0.83-4.51 [facility] Basophil percentageOrdered B y: Dee Stern on 01-16-2023 Basophils/100 WBC (Bld) 0.7 % 0-1 [facility] Eosinophils/100 WBC (Bld) 2.8 % 0-5 [facility] Neutrophils (Bld) [#/Vol] 4.6 10*3/uL 2.0-7.7 [facility] Neutrophils/100 WBC (Bld) 63.3 % 47-70 [facility] WBC (Bld) [#/Vol] 7.3 10*3/uL 4.4-11.0 [facility] Blood erythrocytes count (nu mber/volume)Ordered By: Dee Stern on 01-16-2023 RBC (Bld) [#/Vol] 5.53 10*6/uL 4.2-5.4 [facility] Blood hemoglobin measurement (mass/volume)Ordered By: Dee Stern on 01-16-2023 Hemoglobin (Bld) [Mass/Vol] 13.7 g/dL 12.0-15.0 [facility] Blood lymphocytes/100 leukoc ytesOrdered By: [facility] on 01-16-2023 Lymphocytes/100 WBC (Bld) 26.3 % 19-41 [facility] Blood monocytes/100 leukocyt esOrdered By: [facility] on 01-16-2023 Monocytes/100 WBC (Bld) 6.6 % 0-10 [facility] Blood platelet mean volumeOr dered By: Dee Leena on 01-16-2023 Platelet mean volume (Bld) [Entitic vol] 10.9 fL 6.2-12.0 [facility] Determination of erythrocyte mean corpuscular volume (MCV)Ordered By: [facility] on 01-16-2023 MCV (RBC) [Entitic vol] 79.6 fL 81-99 [facility] Hematocrit Auto (Bld) [Volum e fraction]Ordered By: [facility]-16-2023 Hematocrit (Bld) [Volume fraction] 44.0 % 37-47 [facility] Laboratory - Hematology and Cell countsOrdered By: [facility] on 01-16-2023 Erythrocyte distribution width (RBC) [Entitic vol] 37.4 fL 35.1-43.9 [facility] Erythrocyte distribution width (RBC) [Ratio] 13.2 % 11.6-14.6 [facility] Immature granulocytes/100 WBC (Bld) 0.300 % 0.0-0.9 [facility] Comment on above: IG% - Immature Granu locytes (promyelocytes, myelocytes and metamyelocytes) > 1% indicates that a LEFT SHIFT is Present. MCH (RBC) [Entitic mass] 24.8 pg 27.0-32.0 [facility] Nucleated RBC/100 WBC (Bld) [Ratio] 0 % 0-5 [facility] MCHC Auto (RBC) [Mass/Vol]Or dered By: Dee Stern on 01-16-2023 MCHC (RBC) [Mass/Vol] 31.1 g/dL 32-36 [facility] No Panel InformationOrdered By: Dee Stern on 01-16-2023 Thyroid Stimulating Hormone (TSH) 3.10 uIU/mL 0.358-3.74 [facility] Platelets bldOrdered By: Alex Stern on 01-16-2023 Platelets (Bld) [#/Vol] 241 10*3/uL 150-450 [facility] Serum or plasma ferritin israel surement (mass/volume)Ordered By: Dee Stern on 01-16-2023 Ferritin [Mass/Vol] 8 ng/mL 8-252 [facility] Basophil percentageon 2021 Bilirubin [Mass/Vol] 0.30 mg/dL 0.20-1.00 [facility] Work Phone: Comment on above: For patients on eltr ombopag therapy, use of Dimension [place] TBIL is not recommended. Chloride [Moles/Vol] 112 mmol/L 98-107 [facility] Work Phone: Glucose [Mass/Vol] 104 mg/dL 74-106 [facility] Work Phone: Comment on above: Fasting Glucose resu lt from 100 to 125 mg/dL suggests IMPAIRED HOMEOSTASIS per A.D.A. criteria. Potassium [Moles/Vol] 3.9 mmol/L 3.5-5.1 [facility] Work Phone: Protein [Mass/Vol] 6.2 g/dL 6.4-8.2 [facility] Work Phone: Sodium [Moles/Vol] 142 mmol/L 136-145 [facility] Work Phone: WBC (Bld) [#/Vol] 10.6 10*3/uL 4.4-11.0 [facility] Work Phone: Blood erythrocytes count (nu mber/volume)on 05-12-2022 RBC (Bld) [#/Vol] 3.78 10*6/uL 4.2-5.4 [facility] Work Phone: Blood hemoglobin measurement (mass/volume)on 05-12-2022 Hemoglobin (Bld) [Mass/Vol] 9.7 g/dL 12.0-15.0 [facility] Work Phone: Blood platelet mean volumeon 05-12-2022 Platelet mean volume (Bld) [Entitic vol] 10.8 fL 6.2-12.0 [facility] Work Phone: Determination of erythrocyte mean corpuscular volume (MCV)on 05-12-2022 MCV (RBC) [Entitic vol] 81.0 fL 81-99 [facility] Work Phone: Hematocrit Auto (Bld) [Volum e fraction]on 05-12-2022 Hematocrit (Bld) [Volume fraction] 30.6 % 37-47 [facility] Work Phone: Laboratory - Chemistry and C hemistry - challengeon 05-12-2022 ALP [Catalytic activity/Vol] 141 U/L 45-117 [facility] Work Phone: ALT [Catalytic activity/Vol] 25 U/L 13-56 [facility] Work Phone: CO2 [Moles/Vol] 24.0 mmol/L 21.0-32.0 [facility] Work Phone: Globulin (S) [Mass/Vol] 3.9 g/dL 2.2-4.2 [facility] Work Phone: Urea nitrogen/Creatinine [Mass ratio] 15.8 mg/mg 10-20 [facility] Work Phone: Laboratory - Hematology and Cell countson 05-12-2022 Erythrocyte distribution width (RBC) [Entitic vol] 37.9 fL 35.1-43.9 [facility] Work Phone: Erythrocyte distribution width (RBC) [Ratio] 12.7 % 11.6-14.6 [facility] Work Phone: MCH (RBC) [Entitic mass] 25.7 pg 27.0-32.0 [facility] Work Phone: MCHC Auto (RBC) [Mass/Vol]on 05-12-2022 MCHC (RBC) [Mass/Vol] 31.7 g/dL 32-36 [facility] Work Phone: No Panel Informationon 05-12 Estimated Creatinine Clearance Calc 131.35 ml/min [facility] Work Phone: Estimated GFR (MDRD) Amer 127 mL/min >60 [facility] Work Phone: Comment on above: GFR Calc Estimated GFR (MDRD) Non-Af Amer 105 mL/min >60 [facility] Work Phone: Comment on above: Non- GFR Calc Platelets bldon 05-12-2022 Platelets (Bld) [#/Vol] 247 10*3/uL 150-450 [facility] Work Phone: Serum or plasma albumin randi urement (mass/volume)on 05-12-2022 Albumin [Mass/Vol] 2.3 g/dL 3.2-5.0 [facility] Work Phone: Serum or plasma albumin/glob ulin mass ratioon 05-12-2022 Albumin/Globulin [Mass ratio] 0.6 {ratio} 0.9-2.4 [facility] Work Phone: Serum or plasma calcium randi urement (mass/volume)on 05-12-2022 Calcium [Mass/Vol] 8.3 mg/dL 8.5-10.1 [facility] Work Phone: Serum or plasma creatinine m easurement (mass/volume)on 05-12-2022 Creatinine [Mass/Vol] 0.70 mg/dL 0.55-1.02 [facility] Work Phone: Comment on above: The validity of the calculated GFR & GFRAA in patients over 70 years has not been determined. Clinical correlation is essential. Serum or plasma urea nitroge n measurement (mass/volume)on 05-12-2022 Urea nitrogen [Mass/Vol] 11 mg/dL 7-18 [facility] Work Phone: Thin prep Papanicolaou smear with manual screeningon 05-12-2022 Thin prep Papanicolaou smear with manual screening 17 U/L 15-37 [facility] Work Phone: Thin prep Papanicolaou smear with manual screening 6 5-15 [facility] Work Phone: Urine creatinine measurement (mass/volume)on 05-12-2022 Creatinine (U) [Mass/Vol] 52.80 mg/dL NO RANGE EST. [facility] Work Phone: Urine protein measurement (m ass/volume)on 05-12-2022 Protein (U) [Mass/Vol] 19.5 mg/dL 0.0-11.8 [facility] Work Phone: Urine protein/creatinine mas s ratioon 05-12-2022 Protein/Creatinine (U) [Mass ratio] 369 mg/g CRE 0-200 [facility] Work Phone: Basophil percentageon 2021 WBC (Bld) [#/Vol] 14.2 10*3/uL 4.4-11.0 [facility] Work Phone: Blood erythrocytes count (nu mber/volume)on 05-08-2022 RBC (Bld) [#/Vol] 3.54 10*6/uL 4.2-5.4 [facility] Work Phone: Blood hemoglobin measurement (mass/volume)on 05-08-2022 Hemoglobin (Bld) [Mass/Vol] 9.1 g/dL 12.0-15.0 [facility] Work Phone: Blood platelet mean volumeon 05-08-2022 Platelet mean volume (Bld) [Entitic vol] 12.1 fL 6.2-12.0 [facility] Work Phone: Determination of erythrocyte mean corpuscular volume (MCV)on 05-08-2022 MCV (RBC) [Entitic vol] 80.8 fL 81-99 [facility] Work Phone: Hematocrit Auto (Bld) [Volum e fraction]on 05-08-2022 Hematocrit (Bld) [Volume fraction] 28.6 % 37-47 [facility] Work Phone: Laboratory - Hematology and Cell countson 05-08-2022 Erythrocyte distribution width (RBC) [Entitic vol] 37.2 fL 35.1-43.9 [facility] Work Phone: Erythrocyte distribution width (RBC) [Ratio] 12.7 % 11.6-14.6 [facility] Work Phone: MCH (RBC) [Entitic mass] 25.7 pg 27.0-32.0 [facility] Work Phone: MCHC Auto (RBC) [Mass/Vol]on 05-08-2022 MCHC (RBC) [Mass/Vol] 31.8 g/dL 32-36 [facility] Work Phone: Comment on above: Delta: 34.0 on 05/07-0515 Platelets bldon 05-08-2022 Platelets (Bld) [#/Vol] 165 10*3/uL 150-450 [facility] Work Phone: Absolute lymphocyte counton 05-07-2022 Lymphocytes Auto (Unsp spec) [#/Vol] 1.81 10*3/uL 0.83-4.51 [facility] Work Phone: Basophil percentageon 2021 Basophils/100 WBC (Bld) 0.2 % 0-1 [facility] Work Phone: Bilirubin [Mass/Vol] 0.30 mg/dL 0.20-1.00 [facility] Work Phone: Comment on above: For patients on eltr ombopag therapy, use of Dimension [place] TBIL is not recommended. Chloride [Moles/Vol] 108 mmol/L 98-107 [facility] Work Phone: Eosinophils/100 WBC (Bld) 0.0 % 0-5 [facility] Work Phone: [phone] Glucose [Mass/Vol] 116 mg/dL 74-106 [facility] Work Phone: Comment on above: Fasting Glucose resu lt from 100 to 125 mg/dL suggests IMPAIRED HOMEOSTASIS per A.D.A. criteria. Neutrophils (Bld) [#/Vol] 12.7 10*3/uL 2.0-7.7 [facility] Work Phone: [phone] Neutrophils/100 WBC (Bld) 82.8 % 47-70 [facility] Work Phone: [phone] Potassium [Moles/Vol] 3.7 mmol/L 3.5-5.1 [facility] Work Phone: [phone] Protein [Mass/Vol] 6.3 g/dL 6.4-8.2 [facility] Work Phone: [phone] Sodium [Moles/Vol] 137 mmol/L 136-145 [facility] Work Phone: [phone] Blood lymphocytes/100 leukoc yteson 05-07-2022 Lymphocytes/100 WBC (Bld) 11.8 % 19-41 [facility] Work Phone: Blood monocytes/100 leukocyt eson 05-07-2022 Monocytes/100 WBC (Bld) 4.7 % 0-10 [facility] Work Phone: Laboratory - Chemistry and C hemistry - challengeon 05-07-2022 ALP [Catalytic activity/Vol] 193 U/L 45-117 [facility] Work Phone: ALT [Catalytic activity/Vol] 13 U/L 13-56 [facility] Work Phone: [phone] CO2 [Moles/Vol] 19.0 mmol/L 21.0-32.0 [facility] Work Phone: Globulin (S) [Mass/Vol] 4.0 g/dL 2.2-4.2 [facility] Work Phone: Urea nitrogen/Creatinine [Mass ratio] 9.2 mg/mg 10-20 [facility] Work Phone: Laboratory - Hematology and Cell countson 05-07-2022 Immature granulocytes/100 WBC (Bld) 0.500 % 0.0-0.9 [facility] Work Phone: Comment on above: IG% - Immature Granu locytes (promyelocytes, myelocytes and metamyelocytes) > 1% indicates that a LEFT SHIFT is Present. Nucleated RBC/100 WBC (Bld) [Ratio] 0 % 0-5 [facility] Work Phone: No Panel Informationon 05-07 Estimated Creatinine Clearance Calc 120.98 ml/min [facility] Work Phone: Estimated GFR (MDRD) Amer 114 mL/min >60 [facility] Work Phone: Comment on above: GFR Calc Estimated GFR (MDRD) Non-Af Amer 94 mL/min >60 [facility] Work Phone: Comment on above: Non- GFR Calc Serum or plasma albumin randi urement (mass/volume)on 05-07-2022 Albumin [Mass/Vol] 2.3 g/dL 3.2-5.0 [facility] Work Phone: Serum or plasma albumin/glob ulin mass ratioon 05-07-2022 Albumin/Globulin [Mass ratio] 0.6 {ratio} 0.9-2.4 [facility] Work Phone: Serum or plasma calcium randi urement (mass/volume)on 05-07-2022 Calcium [Mass/Vol] 8.8 mg/dL 8.5-10.1 [facility] Work Phone: Serum or plasma creatinine m easurement (mass/volume)on 05-07-2022 Creatinine [Mass/Vol] 0.76 mg/dL 0.55-1.02 [facility] Work Phone: Comment on above: The validity of the calculated GFR & GFRAA in patients over 70 years has not been determined. Clinical correlation is essential. Serum or plasma urea nitroge n measurement (mass/volume)on 05-07-2022 Urea nitrogen [Mass/Vol] 7 mg/dL 7-18 [facility] Work Phone: Thin prep Papanicolaou smear with manual screeningon 05-07-2022 Thin prep Papanicolaou smear with manual screening 15 U/L 15-37 [facility] Work Phone: Thin prep Papanicolaou smear with manual screening 10 5-15 [facility] Work Phone: Basophil percentageon 2021 WBC (Bld) [#/Vol] 10.8 10*3/uL 4.4-11.0 [facility] Work Phone: Blood erythrocytes count (nu mber/volume)on 05-06-2022 RBC (Bld) [#/Vol] 4.51 10*6/uL 4.2-5.4 [facility] Work Phone: Blood hemoglobin measurement (mass/volume)on 05-06-2022 Hemoglobin (Bld) [Mass/Vol] 11.9 g/dL 12.0-15.0 [facility] Work Phone: Blood platelet mean volumeon 05-06-2022 Platelet mean volume (Bld) [Entitic vol] 11.8 fL 6.2-12.0 [facility] Work Phone: Determination of erythrocyte mean corpuscular volume (MCV)on 05-06-2022 MCV (RBC) [Entitic vol] 78.0 fL 81-99 [facility] Work Phone: Hematocrit Auto (Bld) [Volum e fraction]on 05-06-2022 Hematocrit (Bld) [Volume fraction] 35.2 % 37-47 [facility] Work Phone: INR in Blood by Coagulation assayon 05-06-2022 INR Coag (Bld) [Relative time] 0.9 {INR} [facility] Work Phone: Laboratory - Chemistry and C hemistry - challengeon 05-06-2022 ALT [Catalytic activity/Vol] 12 U/L 13-56 [facility] Work Phone: Laboratory - Coagulationon 1 07-07-2021 aPTT Coag (Bld) [Time] 25.7 s 24.1-36.2 [facility] Work Phone: PT Coag (PPP) [Time] 11.8 s 11.7-14.9 [facility] Work Phone: Laboratory - Hematology and Cell countson 05-06-2022 Erythrocyte distribution width (RBC) [Entitic vol] 35.7 fL 35.1-43.9 [facility] Work Phone: Erythrocyte distribution width (RBC) [Ratio] 12.5 % 11.6-14.6 [facility] Work Phone: MCH (RBC) [Entitic mass] 26.4 pg 27.0-32.0 [facility] Work Phone: MCHC Auto (RBC) [Mass/Vol]on 05-06-2022 MCHC (RBC) [Mass/Vol] 33.8 g/dL 32-36 [facility] Work Phone: No Panel Informationon 05-06 Estimated Creatinine Clearance Calc 135.21 ml/min [facility] Work Phone: Estimated GFR (MDRD) Amer 130 mL/min >60 [facility] Work Phone: Comment on above: GFR Calc Estimated GFR (MDRD) Non-Af Amer 108 mL/min >60 [facility] Work Phone: Comment on above: Non- GFR Calc Platelets bldon 05-06-2022 Platelets (Bld) [#/Vol] 197 10*3/uL 150-450 [facility] Work Phone: Serum or plasma creatinine m easurement (mass/volume)on 05-06-2022 Creatinine [Mass/Vol] 0.68 mg/dL 0.55-1.02 [facility] Work Phone: Comment on above: The validity of the calculated GFR & GFRAA in patients over 70 years has not been determined. Clinical correlation is essential. Serum or plasma uric acid me asurement (mass/volume)on 05-06-2022 Urate [Mass/Vol] 6.6 mg/dL 2.6-6.0 [facility] Work Phone: Comment on above: The drugs N-Acetylcy steine and Metamizole may falsely depress this assay. Thin prep Papanicolaou smear with manual screeningon 05-06-2022 Thin prep Papanicolaou smear with manual screening 14 U/L 15-37 [facility] Work Phone: Urine creatinine measurement (mass/volume)on 05-06-2022 Creatinine (U) [Mass/Vol] 220.00 mg/dL NO RANGE EST. [facility] Work Phone: Urine protein measurement (m ass/volume)on 05-06-2022 Protein (U) [Mass/Vol] 31.0 mg/dL 0.0-11.8 [facility] Work Phone: Urine protein/creatinine mas s ratioon 05-06-2022 Protein/Creatinine (U) [Mass ratio] 141 mg/g CRE 0-200 [facility] Work Phone: Laboratory - Chemistry and C hemistry - challengeon 04-29-2022 Glucose Ql (U) Negative [facility] Work Phone: Laboratory - Urinalysison Protein Ql (U) Negative [facility] Work Phone: Laboratory - Chemistry and C hemistry - challengeon 04-23-2022 Free T4 [Mass/Vol] 0.96 ng/dL 0.76-1.46 [facility] Work Phone: Glucose Ql (U) Negative [facility] Work Phone: Laboratory - Urinalysison Protein Ql (U) Negative [facility] Work Phone: No Panel Informationon 04-23 Thyroid Stimulating Hormone (TSH) 4.63 uIU/mL 0.358-3.74 [facility] Work Phone: Laboratory - Chemistry and C hemistry - challengeon 04-02-2022 Glucose Ql (U) Negative [facility] Work Phone: Laboratory - Urinalysison Protein Ql (U) Negative [facility] Work Phone: Laboratory - Chemistry and C hemistry - challengeon 03-18-2022 Glucose Ql (U) Negative [facility] Work Phone: Laboratory - Urinalysison Protein Ql (U) Negative [facility] Work Phone: Absolute lymphocyte counton 03-16-2022 Lymphocytes Auto (Unsp spec) [#/Vol] 2.18 10*3/uL 0.83-4.51 [facility] Work Phone: Basophil percentageon 2021 Basophils/100 WBC (Bld) 0.2 % 0-1 [facility] Work Phone: Chloride [Moles/Vol] 109 mmol/L 98-107 [facility] Work Phone: Eosinophils/100 WBC (Bld) 0.6 % 0-5 [facility] Work Phone: Glucose [Mass/Vol] 116 mg/dL 74-106 [facility] Work Phone: Comment on above: Fasting Glucose resu lt from 100 to 125 mg/dL suggests IMPAIRED HOMEOSTASIS per A.D.A. criteria. Neutrophils (Bld) [#/Vol] 13.7 10*3/uL 2.0-7.7 [facility] Work Phone: Neutrophils/100 WBC (Bld) 79.4 % 47-70 [facility] Work Phone: Potassium [Moles/Vol] 3.7 mmol/L 3.5-5.1 [facility] Work Phone: Sodium [Moles/Vol] 139 mmol/L 136-145 [facility] Work Phone: WBC (Bld) [#/Vol] 17.2 10*3/uL 4.4-11.0 [facility]: Blood erythrocytes count (nu mber/volume)on 03-16-2022 RBC (Bld) [#/Vol] 4.40 10*6/uL 4.2-5.4 [facility] Work Phone: Blood hemoglobin measurement (mass/volume)on 03-16-2022 Hemoglobin (Bld) [Mass/Vol] 12.2 g/dL 12.0-15.0 [facility] Work Phone: Blood lymphocytes/100 leukoc yteson 03-16-2022 Lymphocytes/100 WBC (Bld) 12.7 % 19-41 [facility] Work Phone: Blood monocytes/100 leukocyt eson 03-16-2022 Monocytes/100 WBC (Bld) 5.4 % 0-10 [facility] Work Phone: Blood platelet mean volumeon 03-16-2022 Platelet mean volume (Bld) [Entitic vol] 11.0 fL 6.2-12.0 [facility] Work Phone: Determination of erythrocyte mean corpuscular volume (MCV)on 03-16-2022 MCV (RBC) [Entitic vol] 84.1 fL 81-99 [facility] Work Phone: Hematocrit Auto (Bld) [Volum e fraction]on 03-16-2022 Hematocrit (Bld) [Volume fraction] 37.0 % 37-47 [facility] Work Phone: Laboratory - Chemistry and C hemistry - challengeon 03-16-2022 CO2 [Moles/Vol] 20.0 mmol/L 21.0-32.0 [facility] Work Phone: Urea nitrogen/Creatinine [Mass ratio] 10.0 mg/mg 10-20 [facility] Work Phone: Laboratory - Hematology and Cell countson 03-16-2022 Erythrocyte distribution width (RBC) [Entitic vol] 40.6 fL 35.1-43.9 [facility] Work Phone: Erythrocyte distribution width (RBC) [Ratio] 13.2 % 11.6-14.6 [facility] Work Phone: Immature granulocytes/100 WBC (Bld) 1.700 % 0.0-0.9 [facility] Work Phone: Comment on above: IG% - Immature Granu locytes (promyelocytes, myelocytes and metamyelocytes) > 1% indicates that a LEFT SHIFT is Present. MCH (RBC) [Entitic mass] 27.7 pg 27.0-32.0 [facility] Work Phone: Nucleated RBC/100 WBC (Bld) [Ratio] 0 % 0-5 [facility] Work Phone: MCHC Auto (RBC) [Mass/Vol]on 03-16-2022 MCHC (RBC) [Mass/Vol] 33.0 g/dL 32-36 [facility] Work Phone: No Panel Informationon 03-16 Estimated Creatinine Clearance Calc 148.26 ml/min [facility] Work Phone: Estimated GFR (MDRD) Amer 150 mL/min >60 [facility] Work Phone: Comment on above: GFR Calc Estimated GFR (MDRD) Non-Af Amer 124 mL/min >60 [facility] Work Phone: Comment on above: Non- GFR Calc Platelets bldon 03-16-2022 Platelets (Bld) [#/Vol] 210 10*3/uL 150-450 [facility] Work Phone: Serum or plasma calcium randi urement (mass/volume)on 03-16-2022 Calcium [Mass/Vol] 9.1 mg/dL 8.5-10.1 [facility] Work Phone: Serum or plasma creatinine m easurement (mass/volume)on 03-16-2022 Creatinine [Mass/Vol] 0.60 mg/dL 0.55-1.02 [facility] Work Phone: Comment on above: The validity of the calculated GFR & GFRAA in patients over 70 years has not been determined. Clinical correlation is essential. Serum or plasma urea nitroge n measurement (mass/volume)on 03-16-2022 Urea nitrogen [Mass/Vol] 6 mg/dL 7-18 [facility] Work Phone: Thin prep Papanicolaou smear with manual screeningon 03-16-2022 Thin prep Papanicolaou smear with manual screening 10-07 [facility] Work Phone: Laboratory - Chemistry and C hemistry - challengeon 03-08-2022 Glucose Ql (U) Negative [facility] Work Phone: Laboratory - Urinalysison Protein Ql (U) Negative [facility] Work Phone: Quantitative serum or plasma 3 hour gestational glucose tolerance panelon 03-07-2022 Glucose tolerance 3 hours gestational panel See comment [facility] Work Phone: Comment on above: FASTING 93 Col: 02/23 08/14 0958GLUCOSE TOLERANCE TEST FOR Reference Interval GESTATIONAL DIABETES Fasting <105 mg/dL 1 hour <190 mg/dl 2 hour <165 mg/dl 3 hour <145 mg/dl 1 HR GLU 138 Col: 03/07/22 1102 2 HR GLU 130 Col: 03/07/22 1201 3 HR GLU 104 Col: 03/07/22 1256 Absolute lymphocyte counton 03-06-2022 Lymphocytes Auto (Unsp spec) [#/Vol] 2.46 10*3/uL 0.83-4.51 [facility] Work Phone: Basophil percentageon 2021 Basophils/100 WBC (Bld) 0.3 % 0-1 [facility] Work Phone: Eosinophils/100 WBC (Bld) 0.8 % 0-5 [facility] Work Phone: Neutrophils (Bld) [#/Vol] 11.4 10*3/uL 2.0-7.7 [facility] Work Phone: Neutrophils/100 WBC (Bld) 76.2 % 47-70 [facility] Work Phone: WBC (Bld) [#/Vol] 15.0 10*3/uL 4.4-11.0 [facility] Work Phone: Blood erythrocytes count (nu mber/volume)on 03-06-2022 RBC (Bld) [#/Vol] 4.35 10*6/uL 4.2-5.4 [facility] Work Phone: Blood hemoglobin measurement (mass/volume)on 03-06-2022 Hemoglobin (Bld) [Mass/Vol] 12.4 g/dL 12.0-15.0 [facility] Work Phone: Blood lymphocytes/100 leukoc yteson 03-06-2022 Lymphocytes/100 WBC (Bld) 16.5 % 19-41 [facility] Work Phone: Blood monocytes/100 leukocyt eson 03-06-2022 Monocytes/100 WBC (Bld) 4.7 % 0-10 [facility] Work Phone: Blood platelet mean volumeon 03-06-2022 Platelet mean volume (Bld) [Entitic vol] 10.6 fL 6.2-12.0 [facility] Work Phone: Determination of erythrocyte mean corpuscular volume (MCV)on 03-06-2022 MCV (RBC) [Entitic vol] 86.4 fL 81-99 [facility] Work Phone: Gestational diabetes screen 1-hour screen with 50g oral glucose loadon 03-06-2022 Glucose 1 Hr post 50 g glucose PO [Mass/Vol] 147 mg/dL 70-140 [facility] Work Phone: Hematocrit Auto (Bld) [Volum e fraction]on 03-06-2022 Hematocrit (Bld) [Volume fraction] 37.6 % 37-47 [facility] Work Phone: Laboratory - Hematology and Cell countson 03-06-2022 Erythrocyte distribution width (RBC) [Entitic vol] 43.8 fL 35.1-43.9 [facility] Work Phone: Erythrocyte distribution width (RBC) [Ratio] 13.7 % 11.6-14.6 [facility] Work Phone: Immature granulocytes/100 WBC (Bld) 1.500 % 0.0-0.9 [facility] Work Phone: Comment on above: IG% - Immature Granu locytes (promyelocytes, myelocytes and metamyelocytes) > 1% indicates that a LEFT SHIFT is Present. MCH (RBC) [Entitic mass] 28.5 pg 27.0-32.0 [facility] Work Phone: Nucleated RBC/100 WBC (Bld) [Ratio] 0 % 0-5 [facility] Work Phone: MCHC Auto (RBC) [Mass/Vol]on 03-06-2022 MCHC (RBC) [Mass/Vol] 33.0 g/dL 32-36 [facility] Work Phone: Platelets bldon 03-06-2022 Platelets (Bld) [#/Vol] 217 10*3/uL 150-450 [facility] Work Phone: Progress Noteon 02-11-2022 Director Of Event Sales Authentication Interface Message Text New patient 02/11/2022 RE: Erin Garcia : 1990 AGE: 31 y.o. 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 OB History 2 Para 1 Term 1 AB Living 1 SAB IAB Ectopic Multiple Live Births 1 Counseling and/or coordination of care (face to face time in the office/outpatient setting or floor/unit time in the hospital) was greater than 60 minutes which is more than 50% of the total time of 70 minutes spent on the encounter. In addition, the following items were performed before, during, and after this visit: Synthesis of current imaging findings. Results for orders placed or performed in visit on 02/11/22 Echo [facility] [place] [address] [email or web address] Echocardiogram Report M-mode, complete 2D, complete spectral Doppler, and color Doppler PATIENT: Erin Garcia STUDY DATE/TIME: Feb 11 2022 1:06PM HEIGHT: : 1990 WEIGHT: AGE: 31yr BSA/BMI: / GENDER: F BP: 114 / 75 LOCATION: [facility] REFERRING PHYSICIAN: Torsten Huerta Susan K ORDERING PROVIDER: Eyal Huerta READING PHYSICIAN: SUSAN Link STICKER HAND: Azalia eRndon RDCS SUMMARY: Di-Di twin , twin located on maternal left side in vertex position. 1. Structurally normal heart. 2. Normal biventricular size and function. 3. No atrioventricular valve regurgitation. 4. Normal three vessel view. 5. Normally related great arteries. 6. Left aortic arch with left patent ductus arteriosus. 7. Normal systemic and pulmonary venous connections. 8. Technically difficult study due to body habitus, position and movement. 9. This study is limited in evaluating minor valve abnormalities, septal defects, partial anomalous pulmonary venous connection, and aortic arch abnormalities. 10. The above findings, including the limitations, were discussed with the patient. Recommendations: follow-up if development lead hears a heart murmur or otherwise clinically indicated. 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 STUDY AND PROCEDURE DATA: Procedure Description: New ([id number]) . Study status: Routine. Location: lab. Procedure: Transabdominal echocardiography for congenital heart disease evaluation. Patient status: Outpatient. Blood pressure: 114/75 Maternal age: 31yr. : 2. Parity: 1. Expected delivery date: 06/04/2022. Gestational age: 23wk. Trimester: 2nd trimester. FINDINGS: DESCRIPTION Two fetuses are present. Normal three vessel view. Fetus (Twin located on maternal left side in vertex position): The rhythm is sinus rhythm, with a heart rate of 135bpm. The position is vertex. Normal Doppler pattern of the ductus venosus, umbilical artery, and vein. Three vessel cord. ANATOMIC RELATIONSHIPS - Normal visceral situs, with left sided stomach. Left sided cardiac apex (levocardia).Normally related great vessels. VEINS AND ATRIA Atrial septum - There is a patent foramen ovale. There is a [id number] shunt. Left atrium - The atrium is normal in size. Right atrium - The atrium is normal in size. Systemic veins - Inferior vena cava and superior vena cava seen entering normally into the right atrium. Pulmonary veins: There are at least 2 out of 4 pulmonary veins seen entering normally into the left atrium, with normal Doppler pattern. A-V CANAL Tricuspid valve - The valve is structurally normal. - There is normal biphasic inflow spectral Doppler. There is no regurgitation. Mitral valve - The valve is structurally normal. - There is normal biphasic inflow spectral Doppler. There is no regurgitation. VENTRICLES Right ventricle - The cavity size is normal. Wall thickness is normal. Systolic function is qualitatively normal. Left ventricle - The cavity size is normal. Wall thi (more content not included)... Normal [facility] Laboratory - Chemistry and C hemistry - challengeon 02-07-2022 Glucose Ql (U) Negative [facility] Work Phone: Laboratory - Urinalysison Protein Ql (U) Negative [facility] Work Phone: Laboratory - Chemistry and C hemistry - challengeon 01-07-2022 Glucose Ql (U) Negative [facility] Work Phone: Laboratory - Urinalysison Protein Ql (U) Negative [facility] Work Phone: Laboratory - Chemistry and C hemistry - challengeon 12-10-2021 Glucose Ql (U) Negative [facility] Work Phone: Laboratory - Urinalysison Protein Ql (U) Negative [facility] Work Phone: No Panel Informationon 12-10 Miscellaneous Test Comment MAILED SPECIMEN [facility] Work Phone: Progress Noteon 11-30-2021 Director Of Event Sales Authentication Interface Message Text Maternal Medicine Consult Date of Service: 11/30/2021 Referring Provider: Ami Lopez Primary Care Provider: Paige Dial MD (Inactive) Reason for Consult: Dr. Ami Lopez requests that Erin be evaluated due to twins with history of a child with 45,X. She has history of DVT on Lovenox.. HPI: Erin is a 31 y.o. at 13w3d gestation who presents for evaluation of dichorionic diamniotic twins with history of a child with 45,X and history of DVT. Erin denies nausea, vomiting, vaginal bleeding, vaginal discharge, and/or cramping. OB History Para Term AB Living 2 1 0 1 0 1 SAB IAB Ectopic Multiple Live Births 0 0 0 0 1 # Outcome Date GA Lbr Atif/2nd Weight Sex Delivery Anes PTL Lv 2 Current 1 04/09/10 34w0d 1.786 kg F CS-Classical Spinal N JAYJAY Comments: Jack's Syndrome, Cleft Palate, SGA Name: Abbi Past Medical History: Diagnosis Date Anxiety Depression Dichorionic diamniotic twin History of delivery, currently 28 week delivery for SGA, Jack's syndrome, cleft palate Hx of deep venous thrombosis DVT Lower extremity - Lovenox 40 mgm daily Hypothyroid in , antepartum Levothyroxine 50 mcg daily Vaginal Pap smear, abnormal LGSIL Past Surgical History: Procedure Laterality Date SECTION, CLASSIC 04/09/2010 SGA LEEP TONSILLECTOMY AND ADENOIDECTOMY TYMPANOSTOMY TUBE PLACEMENT Allergies Allergen Reactions Other Other (See Comments) Has problems with anesthesia, unsure what specific medication; facial swelling Latex Rash Tape Allergy Rash Social History Socioeconomic History Marital status: Single Tobacco Use Smoking status: Never Passive exposure: Never Smokeless tobacco: Never Substance and Sexual Activity Alcohol use: Never Drug use: Never Infections Live with someone with or exposed to TB No History of STI's Herpes Herpes I Rash or viral illness since last menstruation No 2nd STI GBS 3rd STI Hx of Chicken Pox Yes Other infections No Partner has hx of genital herpes No Genetics Age is > than 35y as of estimated date No Thalassemia No Neural Tube Defect No Congenital Heart Defect Yes Daughter, Abbi, with 2 holes in heart - no surgery required. Pt with hx of heart murmur Down Syndrome Yes pt's niece Mik-Sachs No Kiara Disease No Sickle Cell Disease or Trait No Hemophilia, Thrombophilia Yes pt had DVT on OCPs Muscular Dystrophy No Cystic Fibrosis No [place]'s Chorea No Intellectual Disability/Autism No Metabolic Disorder No Recurrent Loss, or a Stillbirth No Inherited Genetic or Chromosomal Disorder Yes Daughter, Abbi, with Jack's syndrome Illicit; Rec.drugs; Alcohol since last menses No Family History Problem Relation Age of Onset Anesth Problems Mother Cancer Mother myeloma Stroke Mother Osteoporosis Mother DVT Mother Mental Illness Father depression Arthritis Father High Cholesterol Father Thyroid Disease Father Other Daughter jack's Cleft Lip/Palate Daughter cleft palate Outpatient Encounter Medications as of 11/30/2021 Medication Sig Dispense Refill ondansetron (ZOFRAN) 4 MG tablet Take 4 mg by mouth every 4 hours as needed Enoxaparin Sodium (LOVENOX) SQ Inject 40 mg into the skin daily levothyroxine (SYNTHROID) 50 MCG tablet Take 50 mcg by mouth daily meclizine (ANTIVERT) 25 MG tablet Take 25 mg by mouth 3 times daily as needed Vit-Fe Fumarate-FA ( VITAMIN PO) Take by mouth daily No facility-administered encounter medications on file as of 11/30/2021. Review of Systems Constitutional: Negative. HENT: Negative. Eyes: Negative. Respiratory: Negative. Cardiovascular: Negative. Gastrointestinal: Negative. Genitourinary: Negative. Musculoskeletal: Negative. Skin: Negative. Neurological: Negative. Endo/Heme/Allergies: Negative. Psychiatric/Behavioral: Negative. PHYSICAL EXAM: BP 122/62 Ht 180.3 cm Wt (!) 111.9 kg (246 lb 11.2 oz) LMP 08/28/2021 BMI 34.41 kg/m Constitutional: General: She is active. HENT: Head: Atraumatic. Eyes: Extraocular Movements: EOM normal. Conjunctiva/sclera: Conjunctivae normal. Pulmonary: Effort: Pulmonary effort is normal. Abdominal: Comments: gravid uterus Musculoskeletal: Normal range of motion. Neurological: Mental Status: She is alert. X 3. Laboratory Test Results: No visits with results within 1 Year(s) from this visit. Latest known visit with results is: Hospital Outpatient Visit on 01/05/2010 Component Date Value Ref Range Status Race 01/05/2010 Unknown Final Sample Description 01/05/2010 No RBCs present Final Gestational Age Method 01/05/2010 Ultrasound Final AFP, Amniotic Fluid 01/05/2010 4.78 kIU/ml Final MOM 01/05/2010 0.83 Final AFP Evaluation, Amniotic Flu 01/05/2010 see below Final Note 01/05/2010 Final Value: Patient result (more content not included)... [facility] Gestational diabetes screen 1-hour screen with 50g oral glucose loadon 11-22-2021 Glucose 1 Hr post 50 g glucose PO [Mass/Vol] 114 mg/dL 70-140 [facility] Work Phone: Absolute lymphocyte counton 11-16-2021 Lymphocytes Auto (Unsp spec) [#/Vol] 1.87 10*3/uL 0.83-4.51 [facility] Work Phone: Basophil percentageon 2021 Basophils/100 WBC (Bld) 0.4 % 0-1 [facility] Work Phone: Eosinophils/100 WBC (Bld) 1.2 % 0-5 [facility] Work Phone: Neutrophils (Bld) [#/Vol] 5.3 10*3/uL 2.0-7.7 [facility] Work Phone: [phone] Neutrophils/100 WBC (Bld) 68.5 % 47-70 [facility] Work Phone: [phone] WBC (Bld) [#/Vol] 7.7 10*3/uL 4.4-11.0 [facility] Work Phone: [phone] Blood erythrocytes count (nu mber/volume)on 11-16-2021 RBC (Bld) [#/Vol] 4.92 10*6/uL 4.2-5.4 [facility] Work Phone: Blood hemoglobin measurement (mass/volume)on 11-16-2021 Hemoglobin (Bld) [Mass/Vol] 13.6 g/dL 12.0-15.0 [facility] Work Phone: Blood lymphocytes/100 leukoc yteson 11-16-2021 Lymphocytes/100 WBC (Bld) 24.3 % 19-41 [facility] Work Phone: Blood monocytes/100 leukocyt eson 11-16-2021 Monocytes/100 WBC (Bld) 5.3 % 0-10 [facility] Work Phone: Blood platelet mean volumeon 11-16-2021 Platelet mean volume (Bld) [Entitic vol] 10.6 fL 6.2-12.0 [facility] Work Phone: Determination of erythrocyte mean corpuscular volume (MCV)on 11-16-2021 MCV (RBC) [Entitic vol] 82.5 fL 81-99 [facility] Work Phone: HIV 1 and HIV-2 antibody ass ay with HIV-1 p24 antigen detectionon 11-16-2021 HIV 1+2 Ab+HIV1 p24 Ag IA Ql Non-Reactive Nonreactive [facility] Work Phone: Hematocrit Auto (Bld) [Volum e fraction]on 11-16-2021 Hematocrit (Bld) [Volume fraction] 40.6 % 37-47 [facility] Work Phone: Laboratory - Chemistry and C hemistry - challengeon 11-16-2021 Free T4 [Mass/Vol] 1.24 ng/dL 0.76-1.46 [facility] Work Phone: Laboratory - Hematology and Cell countson 11-16-2021 Erythrocyte distribution width (RBC) [Entitic vol] 38.0 fL 35.1-43.9 [facility] Work Phone: Erythrocyte distribution width (RBC) [Ratio] 12.6 % 11.6-14.6 [facility] Work Phone: Immature granulocytes/100 WBC (Bld) 0.300 % 0.0-0.9 [facility] Work Phone: Comment on above: IG% - Immature Granu locytes (promyelocytes, myelocytes and metamyelocytes) > 1% indicates that a LEFT SHIFT is Present. MCH (RBC) [Entitic mass] 27.6 pg 27.0-32.0 [facility] Work Phone: Nucleated RBC/100 WBC (Bld) [Ratio] 0 % 0-5 [facility] Work Phone: MCHC Auto (RBC) [Mass/Vol]on 11-16-2021 MCHC (RBC) [Mass/Vol] 33.5 g/dL 32-36 [facility] Work Phone: No Panel Informationon 11-16 Hepatitis B Surface Antigen Non-Reactive Nonreactive [facility] Work Phone: Hepatitis C Antibody Non-Reactive Nonreactive [facility] Work Phone: Comment on above: Non Reactive: < 0.8 Equivocal: >/= 0.8 to < 1.0 Reactive: >/= 1.0The [facility] recommends that a reactive/equivocal HCV antibody result be followed up by the HCV Nucleic Acid Amplificationtest ([id number]) Miscellaneous Test Comment MAILED SPECIMEN [facility] Work Phone: Rubella IgG Antibody Reactive Nonreactive [facility] Work Phone: Comment on above: Antibody Results Int erpretation of Immune Status Non Reactive Presumed Non-Immune Equivocal Equivocal Reactive Presumed Immune Thyroid Stimulating Hormone (TSH) 2.66 uIU/mL 0.358-3.74 [facility] Work Phone: Platelets bldon 11-16-2021 Platelets (Bld) [#/Vol] 212 10*3/uL 150-450 [facility] Work Phone: Serum Treponema species anti body detectionon 11-16-2021 Treponema sp Ab Ql (S) Non-Reactive [facility] Work Phone: Chlamydia trachomatis rRNA d etection by probe and target amplification methodon 11-05-2021 C. trachomatis rRNA LORA+probe Ql (Unsp spec) Negative Negative [facility] Work Phone: Laboratory - Drug toxicology on 11-05-2021 Amphetamines Ql (U) Negative <1000 ng/mL [facility] Work Phone: Benzodiazepines Ql (U) Negative < 200 ng/mL [facility] Work Phone: Cannabinoids Screen Ql (U) Negative < 50 ng/mL [facility] Work Phone: Cocaine Ql (U) Negative < 300 ng/mL [facility] Work Phone: Opiates Ql (U) Negative < 300 ng/mL [facility] Work Phone: Laboratory - Microbiology an d Antimicrobial susceptibilityon 11-05-2021 N. gonorrhoeae DNA LORA+probe Ql (Unsp spec) Negative Negative [facility] Work Phone: Comment on above: Performed at: =[address] [place], [place] [id number] Director: Nuria Chase MD, Phone: [phone] No Panel Informationon 11-05 MDMA (Ecstasy) Screen Negative < 500 ng/mL [facility] Work Phone: Urine Barbiturates Screen Negative < 200 ng/mL [facility] Work Phone: Urine Drug Screen Comment [facility] [facility] Work Phone: Comment on above: CONFIRMATORY TESTING FOR ALL POSITIVE URINE DRUG SCREENRESULTS WILL ONLY BE SENT OUT UPON PHYSICIAN ORDER. VISTA Urine Drug Screen methods provide only preliminaryanalytical test results. A more specific alternate chemicalmethod must be used in order to obtain a confirmedanalytical result. Gas chromatography/mass spectrometery(GC/MS) is the preferred confirmatory method. Clinicalconsideration and professional judgement should be appliedto any drug of abuse test result, particularly whenpreliminary positive results are used. URINE TCA TESTING MUST BE ORDERED SEPARATELY. USE TESTMNEMONIC: UTCA Urine Methadone Screen Negative < 300 ng/mL [facility] Work Phone: Urine phencyclidine (PCP) de tectionon 11-05-2021 Phencyclidine Ql (U) Negative < 25 ng/mL [facility] Work Phone: CNOVon 09-26-2021 CNOV Office Visit ([facility] ) -- ERIN GARCIA ([id number]) 1990 F Date Time Provider Department 09/26/21 7:00 PM MOHAMUD ZAMORANO [facility] During your visit today, we recorded the following information about you: Temperature Pulse Respiration Blood pressure 99 degrees 82/minute 16/minute 128/82 Weight 118.4 kg Mohamud ZamoranoALFRED 09/26/2021 7:25 PM Signed Subjective HPI Nontoxic-appearing female presents urgent care [...] Sinus: Maxillary sinus tenderness present. Mouth/Throat: Lips: [place]. Mouth: Mucous membranes are moist. Pharynx: Oropharynx [...] and time. ASSESSMENT/PLAN: 1. Acute maxillary sinusitis, rec (more content not included)... Normal [facility] CNPNon 09-26-2021 CNPN Telephone (INTMWS) -- ERIN GARCIA ([id number]) 1990 F Date Time Provider Department 09/26/21 NO PCP INTMWS During your visit today, we recorded the following information about you: Iain Garcia RN 09/26/2021 7:49 PM Signed Patient calling to ask when should she start antibiotic? She has green nasal drainage and a plugged ear. Advised per provider note patient placed on Augmentin so that indicates she should start now. She states she is also taking Sudafed for nasal congestion. Advised to call back if symptoms worsen or persist. Iain Garcia RN Allergies As of Date: 09/26/2021 (No Known Allergies) Date Reviewed: 09/26/2021 Reviewed by: Mohamud Zamorano APRN.[facility] - Fully Assessed Reason for Visit: Medication Question [2718] Prescriptions as of 09/26/2021 - levothyroxine (SYNTHROID) 50 mcg tablet Take 50 mcg by mouth once daily. - amoxicillin-clavulanic acid (AUGMENTIN) 875-125 mg per tablet Take 1 tablet by mouth twice daily for 7 days. Problem List As Of Date: 09/26/2021 (None) Encounter Status:Closed by IAIN GARCIA on 09/26/21 [facility] IGP W/hpv Rfx [id number] 07-16 Diagnosis: See Ref Lab Report Normal [facility] Comment on above: Order Comment: LMP: 06/18/18 Performed By: #### [id number] #### [place] [address] IGP W/hpv Rfx [id number] 01-14 Diagnosis: See Ref Lab Report [facility] Comment on above: Order Comment: LMP: 12/26/17 Performed By: #### [id number] #### BRENDEN Send Outs Subsection [facility] [place] [address] Pathology ([facility])on 01-01-2018 Pathology ([facility]) FINAL GYNECOLOGIC CY TOLOGY [id number] ADEQUACYSatisfactory for Evaluation. No endocervical cells/transformation zonecomponent present.GENERAL CATEGORIZATIONEpithelial Cell AbnormalityDESCRIPTIVE DIAGNOSISAtypical squamous cells of undetermined significance.COMMENTReview ed by a pathologist due to previous abnormal history.High Risk HPV testing was ordered and performed at [facility] Laboratory for thefollowing high risk genotypes: 16/18/31/33/35/39/45/51/52 /56/58/59/66/68. Anegative result is a normal result. A positive result is an abnormal result.Genotype-specific testing for high risk HPV types 16/18/45 is available uponrequest dependent upon a positive high risk HPV result.High Risk HPV: Positive RELATED LABORATORY RESULTSOrdered by: Jacob Date: 01/01/2018 Ord Time: 10:32Test Collected Result Abnormal Range Units SpecimenName D&T TypeHPV Positive AB NA MSCRNA, 8HighRiskThe HPV test detects E6/E7 viral messenger RNA (mRNA) high-risk HPV ,18,31,33,35,39 ,45,51,55,58,59,66, and 68 which are associated with cervicalcancer and its precursor lesions. However, cross-reactions with othergenotypes may occur. Results should be correlated with cytologic andhistologic findings. Sensitivity may be affected by cellularity of specimen.CLINICAL HISTORYLMP: 12/26/2017SPECIMEN(A) SCREENING CERVICAL/ENDOCERVICAL THIN PREP VIALPerformed at [facility], [address], [place] [id number] by: ALEAH NEWSOME, Special Population Paraprofessional Signed Out by: RHONDA RAPHAEL M.D. Reported: 01/12/[address] [facility] Healthcare Comment on above: Performed By: #### G YN ####[facility] [address] [place] [address] Pathology ([facility])on 06-23-2017 Pathology ([facility]) FINAL GYNECOLOGIC CY TOLOGY [id number] ADEQUACYSatisfactory for Evaluation. No endocervical cells/transformation zonecomponent present.GENERAL CATEGORIZATIONEpithelial Cell AbnormalityDESCRIPTIVE DIAGNOSISAtypical squamous cells of undetermined significance.COMMENTHigh Risk HPV was ordered and performed at [facility] Laboratory. Results arereported below in this report. A negative result is a normal result. Apositive result is an abnormal result.HPV High Risk POSITIVE: The results of this test indicate the patient'sspecimen is POSITIVE for one or more of the following HIGH RISK HPV types:16/18/31/33/35/39/45 /51/52/56/58/59/66/68. RELATED LABORATORY RESULTSOrdered by: Jacob Date: 06/23/2017 Ord Time: 20:52Test Collected Result Abnormal Range Units SpecimenName D&T TypeHPV Positive AB NA MSCRNA, 8HighRiskThe HPV test detects E6/E7 viral messenger RNA (mRNA) high-risk HPV zorufaboq89,18,31,33,35,39 ,45,51,55,58,59,66, and 68 which are associated with cervicalcancer and its precursor lesions. However, cross-reactions with othergenotypes may occur. Results should be correlated with cytologic andhistologic findings. Sensitivity may be affected by cellularity of specimen.CLINICAL HISTORYLMP: 06/13/2017SPECIMEN(A) SCREENING CERVICAL/ENDOCERVICAL LIQUID-BASED PAPPerformed at [facility], [address] [place], [place] [address]Screened by: ALEAH NEWSOME Special Population Paraprofessional Signed Out by: RYDER DOMINGUEZ M.D. Reported: 07/01/[address] [facility] Healthcare Comment on above: Performed By: #### G YN ####[facility] [address] [place] [address] Culture, urine Bacteria identified Cx Nom (U) Positive [facility] Work Phone: No Panel Information Group B Streptococcus Culture Group B Beta Streptococcus is not isolated. [facility] Work Phone: Vital Signs Date Time Vital Sign Value Performing Clinician Faci lity 06-26-2023 09:55-0500 Body height 180.[address] Dee Stern Work Phone: [facility] 06-26-2023 09:50-0500 Body mass index (BMI) [Ratio] 37 kg/m2 Dr. Dee Stern Work Phone: [facility] 06-26-2023 09:50-0500 Body weight 120.[address] Dee Stern Work Phone: [facility] 06-26-2023 09:50-0500 Diastolic blood pressure 80 mm[Hg] Dr. Dee Stern Work Phone: [facility] 06-26-2023 09:50-0500 Systolic blood pressure 121 mm[Hg] Dr. Dee Stern Work Phone: [facility] 11-01-2022 23:03-0400 Heart rate 97 /min [facility] 11-01-2022 22:04-0400 Body mass index (BMI) [Ratio] 36 kg/m2 [facility] 11-01-2022 22:04-0400 Body weight 117.[address] [facility] 11-01-2022 22:03-0400 Body height 180.[address] [facility] 11-01-2022 22:03-0400 Body temperature 96.1 [degF] [facility] 11-01-2022 22:03-0400 Diastolic blood pressure 93 mm[Hg] [facility] 11-01-2022 22:03-0400 Respiratory rate 18 /min [facility] 11-01-2022 22:03-0400 SaO2% (BldA) [Mass fraction] 97 % [facility] 11-01-2022 22:03-0400 Systolic blood pressure 134 mm[Hg] [facility] 05-12-2022 15:18-0500 Diastolic blood pressure 99 mm[Hg] Dr. Dee Stern Work Phone: [facility] Work Phone: 05-12-2022 15:18-0500 Heart rate 80 /min Dr. Dee Stern Work Phone: [facility] Work Phone: 05-12-2022 15:18-0500 Systolic blood pressure 144 mm[Hg] Dr. Dee Stern Work Phone: [facility] Work Phone: 05-12-2022 14:28-0500 Body height 180.[address] Dee Stern Work Phone: [facility] Work Phone: 05-12-2022 14:28-0500 Body mass index (BMI) [Ratio] 36.3 kg/m2 Dr. Dee Stern Work Phone: [facility] Work Phone: 05-12-2022 14:28-0500 Body weight 118.[address] Dee Stern Work Phone: [facility] Work Phone: 05-09-2022 12:01-0500 Body temperature 97.8 [degF] Dr. Dee Stern Work Phone: [facility] Work Phone: 05-09-2022 12:01-0500 Diastolic blood pressure 82 mm[Hg] Dr. Dee Stern Work Phone: [facility] Work Phone: 05-09-2022 12:01-0500 Heart rate 82 /min Dr. Dee Stern Work Phone: [facility] Work Phone: 05-09-2022 12:01-0500 Respiratory rate 16 /min Dr. Dee Stern Work Phone: [facility] Work Phone: 05-09-2022 12:01-0500 SaO2% (BldA) [Mass fraction] 98 % Dr. Dee Stern Work Phone: [facility] Work Phone: 05-09-2022 12:01-0500 Systolic blood pressure 140 mm[Hg] Dr. Dee Stern Work Phone: [facility] Work Phone: 05-08-2022 08:48-0500 Body temperature 98.1 [degF] Dr. Dee Stern Work Phone: [facility] Work Phone: 05-08-2022 08:48-0500 Diastolic blood pressure 72 mm[Hg] Dr. Dee Stern Work Phone: [facility] Work Phone: 05-08-2022 08:48-0500 Heart rate 67 /min Dr. Dee Stern Work Phone: [facility] Work Phone: 05-08-2022 08:48-0500 Respiratory rate 16 /min Dr. Dee Stern Work Phone: [facility] Work Phone: 05-08-2022 08:48-0500 Systolic blood pressure 121 mm[Hg] Dr. Dee Stern Work Phone: [facility] Work Phone: 05-08-2022 05:00-0500 SaO2% (BldA) [Mass fraction] 98 % Dr. eDe Stern Work Phone: [facility] Work Phone: 05-07-2022 04:49-0500 Body height 180.[address] Dee Stern Work Phone: [facility] Work Phone: 05-07-2022 04:49-0500 Body mass index (BMI) [Ratio] 38.2 kg/m2 Dr. Dee Stern Work Phone: [facility] Work Phone: 05-07-2022 04:49-0500 Body weight 124.[address] Dee Stern Work Phone: [facility] Work Phone: 05-06-2022 17:24-0500 Diastolic blood pressure 78 mm[Hg] Dr. Dee Stern Work Phone: [facility] Work Phone: 05-06-2022 17:24-0500 Heart rate 73 /min Dr. Dee Stern Work Phone: [facility] Work Phone: 05-06-2022 17:24-0500 SaO2% (BldA) [Mass fraction] 98 % Dr. Dee Stern Work Phone: [facility] Work Phone: 05-06-2022 17:24-0500 Systolic blood pressure 126 mm[Hg] Dr. Dee Stern Work Phone: [facility] Work Phone: 05-06-2022 16:55-0500 Body temperature 98.5 [degF] Dr. Dee Stern Work Phone: [facility] Work Phone: 05-06-2022 16:01-0500 Body height 180.[address] Dee Stern Work Phone: [facility] Work Phone: 05-06-2022 16:01-0500 Body mass index (BMI) [Ratio] 38 kg/m2 Dr. Dee Stern Work Phone: [facility] Work Phone: 05-06-2022 16:01-0500 Body weight 123.[address] Dee Stern Work Phone: [facility] Work Phone: 05-06-2022 15:29-0500 Body mass index (BMI) [Ratio] 37.9 kg/m2 Dr. Dee Stern Work Phone: [facility] Work Phone: 05-06-2022 15:29-0500 Body weight 123.[address] Dee Stern Work Phone: [facility] Work Phone: 05-06-2022 15:29-0500 Diastolic blood pressure 95 mm[Hg] Dr. Dee Stern Work Phone: [facility] Work Phone: 05-06-2022 15:29-0500 Systolic blood pressure 150 mm[Hg] Dr. Dee Stern Work Phone: [facility] Work Phone: 04-29-2022 14:31-0500 Body mass index (BMI) [Ratio] 37.3 kg/m2 Dr. Dee Stern Work Phone: [facility] Work Phone: 04-29-2022 14:31-0500 Body weight 121.[address] Dee Stern Work Phone: [facility] Work Phone: 04-29-2022 14:31-0500 Diastolic blood pressure 68 mm[Hg] Dr. Dee Stern Work Phone: [facility] Work Phone: 04-29-2022 14:31-0500 Systolic blood pressure 122 mm[Hg] Dr. Dee Stern Work Phone: [facility] Work Phone: 04-23-2022 10:19-0500 Body height 180.[address] Dee Stern Work Phone: [facility] Work Phone: 04-23-2022 10:19-0500 Body mass index (BMI) [Ratio] 36.2 kg/m2 Dr. Dee Stern Work Phone: [facility] Work Phone: 04-23-2022 10:19-0500 Body weight 117.[address] Dee Stern Work Phone: [facility] Work Phone: 04-23-2022 10:19-0500 Diastolic blood pressure 62 mm[Hg] Dr. Dee Stern Work Phone: [facility] Work Phone: 04-23-2022 10:19-0500 Systolic blood pressure 132 mm[Hg] Dr. Dee Stern Work Phone: [facility] Work Phone: 04-02-2022 11:14-0500 Body height 180.[address] Dee Stern Work Phone: [facility] Work Phone: 04-02-2022 11:14-0500 Body mass index (BMI) [Ratio] 35.9 kg/m2 Dr. Dee Stern Work Phone: [facility] Work Phone: 04-02-2022 11:14-0500 Body weight 117.[address] Dee Stern Work Phone: [facility] Work Phone: 04-02-2022 11:14-0500 Diastolic blood pressure 87 mm[Hg] Dr. Dee Stern Work Phone: [facility] Work Phone: 04-02-2022 11:14-0500 Systolic blood pressure 128 mm[Hg] Dr. Dee Stern Work Phone: [facility] Work Phone: 03-18-2022 13:01-0400 Body height 180.[address] Dee Stern Work Phone: [facility] Work Phone: 03-18-2022 13:01-0400 Body mass index (BMI) [Ratio] 35.7 kg/m2 Dr. Dee Stern Work Phone: [facility] Work Phone: 03-18-2022 13:01-0400 Body weight 116.[address] Dee Stern Work Phone: [facility] Work Phone: 03-18-2022 13:01-0400 Diastolic blood pressure 77 mm[Hg] Dr. Dee Stern Work Phone: [facility] Work Phone: 03-18-2022 13:01-0400 Systolic blood pressure 138 mm[Hg] Dr. Dee Stern Work Phone: [facility] Work Phone: 03-16-2022 20:19-0400 Respiratory rate 18 /min Dr. Dee Stern Work Phone: [facility] Work Phone: 03-16-2022 18:11-0400 Diastolic blood pressure 79 mm[Hg] Dr. Dee Stern Work Phone: [facility] Work Phone: 03-16-2022 18:11-0400 Heart rate 101 /min Dr. Dee Stern Work Phone: [facility] Work Phone: 03-16-2022 18:11-0400 SaO2% (BldA) [Mass fraction] 99 % Dr. Dee Stern Work Phone: [facility] Work Phone: 03-16-2022 18:11-0400 Systolic blood pressure 129 mm[Hg] Dr. Dee Stern Work Phone: [facility] Work Phone: 03-16-2022 16:46-0400 Body height 180.[address] Dee Stern Work Phone: [facility] Work Phone: 03-16-2022 16:46-0400 Body mass index (BMI) [Ratio] 35.6 kg/m2 Dr. Dee Stern Work Phone: [facility] Work Phone: 03-16-2022 16:46-0400 Body temperature 98.3 [degF] Dr. Dee Stern Work Phone: [facility] Work Phone: 03-16-2022 16:46-0400 Body weight 115.[address] Dee Stern Work Phone: [facility] Work Phone: 03-08-2022 13:34-0400 Body height 180.[address] Dee Stern Work Phone: [facility] Work Phone: 03-08-2022 13:33-0400 Body mass index (BMI) [Ratio] 35.2 kg/m2 Dr. Dee Stern Work Phone: [facility] Work Phone: 03-08-2022 13:33-0400 Body weight 114.[address] Dee Stern Work Phone: [facility] Work Phone: 03-08-2022 13:33-0400 Diastolic blood pressure 85 mm[Hg] Dr. Dee Stern Work Phone: [facility] Work Phone: 03-08-2022 13:33-0400 Systolic blood pressure 120 mm[Hg] Dr. Dee Stern Work Phone: [facility] Work Phone: 02-07-2022 10:03-0400 Body mass index (BMI) [Ratio] 34.4 kg/m2 Dr. Dee Stern Work Phone: [facility] Work Phone: 02-07-2022 10:03-0400 Body weight 112.[address] Dee Stern Work Phone: [facility] Work Phone: 02-07-2022 10:03-0400 Diastolic blood pressure 87 mm[Hg] Dr. Dee Stern Work Phone: [facility] Work Phone: 02-07-2022 10:03-0400 Systolic blood pressure 132 mm[Hg] Dr. Dee Stern Work Phone: [facility] Work Phone: 01-07-2022 10:11-0400 Body mass index (BMI) [Ratio] 33.7 kg/m2 Dr. Dee Stern Work Phone: [facility] Work Phone: 01-07-2022 10:11-0400 Body weight 109.[address] Dee Stern Work Phone: [facility] Work Phone: 01-07-2022 10:11-0400 Diastolic blood pressure 80 mm[Hg] Dr. Dee Stern Work Phone: [facility] Work Phone: 01-07-2022 10:11-0400 Systolic blood pressure 132 mm[Hg] Dr. Dee Stern Work Phone: [facility] Work Phone: 12-10-2021 11:40-0400 Body mass index (BMI) [Ratio] 33.9 kg/m2 Dr. Dee Stern Work Phone: [facility] Work Phone: 12-10-2021 11:40-0400 Body weight 110.[address] Dee Stern Work Phone: [facility] Work Phone: 12-10-2021 11:40-0400 Diastolic blood pressure 85 mm[Hg] Dr. Dee Stern Work Phone: [facility] Work Phone: 12-10-2021 11:40-0400 Systolic blood pressure 125 mm[Hg] Dr. Dee Stern Work Phone: [facility] Work Phone: 11-22-2021 13:45-0400 Body height 180.[address] Dee Stern Work Phone: [facility] Work Phone: 11-22-2021 13:44-0400 Body mass index (BMI) [Ratio] 34.4 kg/m2 Dr. Dee Stern Work Phone: [facility] Work Phone: 11-22-2021 13:44-0400 Body weight 112.[address] Dee Stern Work Phone: [facility] Work Phone: 11-22-2021 13:44-0400 Diastolic blood pressure 80 mm[Hg] Dr. Dee Stern Work Phone: [facility] Work Phone: 11-22-2021 13:44-0400 Systolic blood pressure 132 mm[Hg] Dr. Dee Stern Work Phone: [facility] Work Phone: 11-05-2021 14:43-0400 Diastolic blood pressure 82 mm[Hg] Dr. Dee Stern Work Phone: [facility] Work Phone: 11-05-2021 14:43-0400 Systolic blood pressure 116 mm[Hg] Dr. Dee Stern Work Phone: [facility] Work Phone: 11-05-2021 13:53-0400 Body height 180.[address] Dee Stern Work Phone: [facility] Work Phone: 11-05-2021 13:53-0400 Body mass index (BMI) [Ratio] 35.4 kg/m2 Dr. Dee Stern Work Phone: [facility] Work Phone: 11-05-2021 13:53-0400 Body weight 115.[address] Dee Stern Work Phone: [facility] Work Phone: 09-26-2021 19:03-0400 Body temperature 99 [degF] Mohamud Zamorano INSERT CUTTER.INDUSTRIAL EDUCATION TEACHER Work Phone: [facility] 09-26-2021 19:03-0400 Body weight 118.39 kg Mohamud Zamorano INSERT CUTTER.INDUSTRIAL EDUCATION TEACHER Work Phone: [facility] 09-26-2021 19:03-0400 Diastolic blood pressure 82 mm[Hg] Mohamud Zamorano INSERT CUTTER.INDUSTRIAL EDUCATION TEACHER Work Phone: [facility] 09-26-2021 19:03-0400 Heart rate 82 /min Mohamud Zamorano INSERT CUTTER.INDUSTRIAL EDUCATION TEACHER Work Phone: [facility] 09-26-2021 19:03-0400 Respiratory rate 16 /min [facility] INSERT CUTTER.INDUSTRIAL EDUCATION TEACHER Work Phone: [facility] 09-26-2021 19:03-0400 SaO2% (BldA) [Mass fraction] 99 % Mohamud Zamorano INSERT CUTTER.INDUSTRIAL EDUCATION TEACHER Work Phone: [facility] 09-26-2021 19:03-0400 Systolic blood pressure 128 mm[Hg] [facility] INSERT CUTTER.INDUSTRIAL EDUCATION TEACHER Work Phone: [facility] Encounters Encounter Date Encounter Type Care Provider Facility Start: 10-11-2024 ambulatory Dee Stern Facility: [facility] Start: 10-04-2024 End: 10-04-2024 ambulatory Dee Stern Facility:[facility] Start: 08-09-2024 End: 08-09-2024 ambulatory Dee Stern Facility:[facility] Start: 08-04-2024 End: 08-04-2024 ambulatory Dee Leena Facility:[facility] Start: 07-07-2024 End: 07-07-2024 ambulatory Ami Lopez Facility:[facility] Start: 06-28-2024 End: 06-28-2024 ambulatory Ami Fara Facility:[facility] Start: 06-28-2024 End: 06-28-2024 ambulatory Ami Marcanthony Facility:[facility] Start: 11-11-2023 End: 11-11-2023 ambulatory Haja MUÑOZ Facility:[facility] Start: 2023 End: [address] Dee Stern Work Phone: [facility] Work Phone: Start: 2023 End: [address] Dee Stern Work Phone: [facility] Work Phone: Start: 08-19-2023 End: 08-19-[address] Dee Stern Work Phone: [facility] Work Phone: Start: 08-19-2023 End: 08-19-[address] Dee Stern Work Phone: [facility] Work Phone: Start: 07-05-2023 End: 07-05-[address] Dee Stern Work Phone: [facility] Work Phone: Start: 07-05-2023 End: 07-05-[address] Dee Stern Work Phone: [facility] Work Phone: Start: 06-26-2023 End: 06-26-[address] Dee Stern Work Phone: [facility] Work Phone: Start: 06-26-2023 End: 06-26-[address] Dee Stern Work Phone: [facility] Work Phone: Start: 01-16-2023 End: 01-16-2023 ambulatory [facility] Work Phone: Start: 01-16-2023 End: 01-16-2023 [facility] Start: 11-01-2022 End: 11-01-2022 Emergency department patient visit [facility] Work Phone: Start: 05-12-2022 Non-patient / Non-visit Dr. Dee Stern Work Phone: [facility] Start: 05-12-2022 End: 05-12-[address] Dee Stern Work Phone: [facility] Work Phone: Start: 05-12-2022 End: 05-12-[address] Dee Stern Work Phone: [facility] Start: 05-09-2022 Non-patient / Non-visit Dr. Dee Stern Work Phone: [facility] Start: 05-08-2022 Non-patient / Non-visit Dr. Dee Stern Work Phone: [facility] Start: 05-07-2022 Non-patient / Non-visit Dr. Dee Stern Work Phone: [facility] Start: 05-07-2022 End: 05-09-2022 Evaluation and management of inpatient Dr. Dee Stern Work Phone: [facility] Start: 05-06-2022 End: 05-06-[address] Dee Stern Work Phone: [facility] Work Phone: Start: 05-06-2022 End: 05-06-[address] Dee Stern Work Phone: [facility], Outpatients Start: 04-30-2022 End: 04-30-[address] Dee Stern Work Phone: [facility] Work Phone: Start: 04-30-2022 End: 04-30-[address] Dee Stern Work Phone: [facility] Start: 04-29-2022 End: 04-29-[address] Dee Stern Work Phone: [facility] Work Phone: Start: 04-29-2022 End: 04-29-[address] Dee Stern Work Phone: [facility]-Laboratory, Specimen Start: 04-29-2022 End: 04-29-[address] Dee Stern Work Phone: [facility] Start: 04-26-2022 Non-patient / Non-visit Dr. Dee Stern Work Phone: [facility] Start: 04-26-2022 End: 04-26-[address] Dee Stern Work Phone: [facility] Work Phone: Start: 04-26-2022 End: 04-26-[address] Dee Stern Work Phone: [facility]Cardiovascula r Services Start: 04-25-2022 End: 04-25-2022 ambulatory EYAL Powell [facility] Start: 04-23-2022 End: 04-23-[address] Dee Stern Work Phone: [facility] Start: 04-23-2022 End: 04-23-[address] Dee Stern Work Phone: [facility] Start: 04-16-2022 End: 04-16-[address] Dee Stern Work Phone: [facility] Work Phone: Start: 04-16-2022 End: 04-16-[address] Dee Stern Work Phone: [facility] Start: 04-09-2022 End: 04-09-[address] Dee Stern Work Phone: [facility] Work Phone: Start: 04-09-2022 End: 04-09-[address] Dee Stern Work Phone: [facility] Start: 04-02-2022 End: 04-02-[address] Dee Stern Work Phone: [facility] Start: 03-25-2022 End: 03-25-2022 ambulatory FORTUNATO MCWILLIAMS [facility] Start: 03-21-2022 End: 03-21-[address] Dee Stern Work Phone: [facility] Work Phone: Start: 03-21-2022 End: 03-21-[address] Dee Stern Work Phone: [facility] Start: 03-18-2022 End: 03-18-[address] Dee Stern Work Phone: [facility] Start: 03-16-2022 End: 03-16-2022 Emergency department patient visit Dr. Dee Stern Work Phone: [facility]-Emergency Department Start: 03-08-2022 End: 03-08-[address] Dee Stern Work Phone: [facility] Start: 03-07-2022 End: 03-07-[address] Dee Stern Work Phone: [facility] Work Phone: Start: 03-07-2022 End: 03-07-[address] Dee Stern Work Phone: [facility]-Laboratory Start: 03-06-2022 End: 03-06-[address] Dee Stern Work Phone: [facility] Work Phone: Start: 03-06-2022 End: 03-06-[address] [facility] Start: 02-21-2022 End: 02-21-2022 ambulatory MARCELINO KAYLA [facility] Start: 02-11-2022 End: 02-11-2022 ambulatory EYAL HUERTA [facility] Start: 02-07-2022 End: 02-07-[address] Dee Stern Work Phone: [facility] Start: 01-31-2022 End: 01-31-2022 ambulatory [facility] Start: 01-11-2022 End: 01-11-2022 [facility] Start: 01-07-2022 End: 01-07-[address] Dee Stern Work Phone: [facility] Start: 12-10-2021 End: 12-10-[address] Dee Stern Work Phone: [facility] Start: 11-30-2021 End: 11-30-2021 ambulatory [facility] Start: 11-22-2021 End: 11-22-[address] Dee Stern Work Phone: [facility] Start: 11-16-2021 End: 11-16-[address] [facility] Start: 11-05-2021 End: 11-05-[address] Dee Stern Work Phone: [facility]Laboratory, Specimen Start: 11-05-2021 End: 11-05-[address] Dee Stern Work Phone: [facility] Start: 10-24-2021 Non-patient / Non-visit Dr. Dee Stern Work Phone: [facility] Start: 09-26-2021 End: 09-26-2021 Patient encounter procedure Mohamud Zamorano INSERT CUTTERSonidoINDUSTRIAL EDUCATION TEACHER Work Phone: [facility] Comment on above: Acute maxillary sinu sitis, recurrence not specified (Primary Dx) Start: 01-01-2018 Patient encounter Facil [id number] Procedures Date Procedure Procedure Detail Performing Clinician Start: 07-05-[address] Dee Stern Work Phone: Start: 04-30-2022 End: 04-30-2022 Ultrasonography for biophysical profile without non-stress testing Dr. Dee Stern Work Phone: Start: 04-23-2022 Ultrasonography for biophysical profile without non-stress testing Dr. Dee Stern Work Phone: Start: 04-16-2022 Ultrasonography for biophysical profile without non-stress testing Dr. Dee Stern Work Phone: Start: 04-16-2022 Ultrasonography for biophysical profile without non-stress testing Dr. Dee Stern Work Phone: Start: 04-09-2022 End: 04-09-2022 Ultrasonography for biophysical profile without non-stress testing Dr. Dee Stern Work Phone: Start: 03-21-2022 Ultrasound scan for growth Dr. Dee Stern Work Phone: Group B Streptococcu s Culture Dr. Dee Stern Work Phone: H/O: section History of section, classical Dr. Dee Stern Work Phone: H/O: surgery Status post bila teral salpingectomy Dr. Dee Stern Work Phone: Urine culture Dr. Dee yoon Work Phone: Plan of Treatment Date Care Activity Detail Author Start: 05-12-2022 Vital signs measurements [facility] Work Phone: Start: 05-12-2022 [facility] Work Phone: Start: 05-12-2022 [facility] Work Phone: Start: 05-09-2022 Patient discharge [facility] Work Phone: Start: 05-08-2022 Application of abdominal corset [facility] Work Phone: Start: 05-07-2022 [facility] Work Phone: Start: 05-07-2022 Administration of medication [facility] Work Phone: Start: 05-07-2022 Ambulation therapy management [facility] Work Phone: Start: 05-07-2022 Application of device [facility] Work Phone: Start: 05-07-2022 End: 05-07-2022 Application of intermittent pneumatic compression device [facility] Work Phone: Start: 05-07-2022 Assessment of risk of venous thromboembolism [facility] Work Phone: Start: 05-07-[address] [facility] Work Phone: Start: 05-07-2022 Deep breathing and coughing exercises [facility] Work Phone: Start: 05-07-2022 Exercises [facility] Work Phone: Start: 05-07-2022 Incentive spirometry [facility] Work Phone: Start: 05-07-2022 Measuring intake and output [facility] Work Phone: Start: 05-07-2022 Notification of physician [facility] Work Phone: Start: 05-07-2022 Procedure discontinued [facility] Work Phone: Start: 05-07-2022 Provision of activity privileges [facility] Work Phone: Start: 05-07-2022 Vital signs measurements [facility] Work Phone: Start: 05-07-2022 Wound care [facility] Work Phone: Start: 05-07-2022 [facility] Work Phone: Start: 05-07-2022 Application of abdominal corset [facility] Work Phone: Start: 05-07-2022 End: 05-08-2022 [facility] Work Phone: Start: 05-07-2022 section Repeat Bilateral Salpingectomy (Bilateral) [facility] Work Phone: Start: 05-07-2022 Admission procedure [facility] Work Phone: Start: 05-07-2022 Verification routine [facility] Work Phone: Start: 05-06-2022 Nonstress test [facility] Work Phone: Start: 05-06-2022 Obstetric monitoring [facility] Work Phone: Start: 05-06-2022 Vital signs measurements [facility] Work Phone: Start: 05-06-2022 [facility] Work Phone: Start: 05-06-2022 Assay of blood/uric acid ASSAY OF BLOOD/URIC ACID [facility] Work Phone: Start: 05-06-2022 Blood count complete automated COMPLETE CBC AUTOMATED [facility] Work Phone: Start: 12-12-2022 Collection venous blood venipuncture ROUTINE VENIPUNCTURE [facility] Work Phone: Start: 05-06-2022 Creatinine blood ASSAY OF CREATININE [facility] Work Phone: Start: 05-06-2022 Creatinine other source ASSAY OF URINE CREATININE [facility] Work Phone: Start: 05-06-2022 monitoring labor phys written report MONITOR W/REPORT [facility] Work Phone: Start: 05-06-2022 nonstress test NON-STRESS TEST [facility] Work Phone: Start: 05-06-2022 Protein total xcpt refractometry urine ASSAY OF PROTEIN URINE [facility] Work Phone: Start: 05-06-2022 Prothrombin time PROTHROMBIN TIME [facility] Work Phone: Start: 05-06-2022 Thromboplastin time partial plasma/whole blood THROMBOPLASTIN TIME PARTIAL [facility] Work Phone: Start: 05-06-2022 Transferase alanine amino alt sgpt ALANINE AMINO (ALT) (SGPT) [facility] Work Phone: Start: 05-06-2022 Transferase aspartate amino ast sgot TRANSFERASE (AST) (SGOT) [facility] Work Phone: Start: 05-06-[address] [facility] Work Phone: Start: 05-06-2022 Patient discharge [facility] Work Phone: Start: 01-24-2022 Influenza vaccination INFLUENZA (Season Ended) [facility] Start: 11-05-2021 [facility] Work Phone: Start: 09-01-2021 HPV TESTING HPV TESTING [facility] Start: 09-01-2012 PAP TESTING PAP TESTING [facility] Start: 09-01-2010 Urine microalbumin profile DTAP,TDAP,TD (1 - Tdap) [facility] Start: 09-01-2009 HEPATITIS C SCREENING HEPATITIS C SCREENING [facility] Start: 09-01-2009 HIV SCREENING HIV SCREENING [facility] Start: 2003 Adult depression screening assessment DEPRESSION SCREENING [facility] Start: 09-01-1996 COVID-19 VACCINE (1) [facility] CBC W Auto Different ial panel - Blood [facility] Work Phone: Glucose [Mass/volume ] in Serum or Plasma --1 hour post 50 g glucose PO [facility] Work Phone: Hepatitis B surface antigen measurement [facility] Work Phone: Hepatitis C antibody measurement [facility] Work Phone: HIV 1+2 Ab+HIV1 p24 Ag [Presence] in Serum or Plasma by Immunoassay [facility] Work Phone: Patient Education [facility] Work Phone: Patient referral [facility] Work Phone: Protein/Creatinine [ Ratio] in Urine [facility] Work Phone: Rubella IgG measurement [facility] Work Phone: T4 free measurement [facility] Work Phone: Thyroid stimulating hormone measurement [facility] Work Phone: Treponema sp Ab [Pre sence] in Serum [facility] Work Phone: Urine culture Urine Culture [facility] Work Phone: US Pelvis [facility] Immunizations Immunization Date Immunization Notes Care Provider Faviola hodgson 03-18-2022 influenza, injectabl e, quadrivalent, preservative free Dr. Dee Stern Work Phone: [facility] 03-18-2022 influenza, seasonal, injectable Dr. Dee Stern Work Phone: [facility] 03-18-2022 tetanus toxoid, redu hubert diphtheria toxoid, and acellular pertussis vaccine, adsorbed Dr. Dee Stern Work Phone: [facility] Payers Date Payer Category Payer Self-pay [id number] 2023 Unknown [id number] 2021 Medicaid UHC MEDICAID UHC COMMUNITY PLAN MEDICAID [id number] 2021-Present [phone] [address] [place] [address] Medicaid [id number] 1991 Unknown [id number]. 479 1991 Unknown [id number]. 479 1991 Unknown [id number]. 479 1991 Unknown [id number] [id number]. 479 1991 Unknown [id number] 2.16.840.1.344312.3.579.2. 479 1991 Unknown [id number] 2.16.840.1.282818.3.579.2. 479 1991 Unknown [id number] 2.16.840.1.222496.3.579.2. 479 1991 Unknown [id number] 2.16.840.1.298832.3.579.2. 479 1991 Unknown [id number] [id number]. 479 Private Health Insurance [id number] Unknown [id number] Unknown [id number] [id number]. 462 Unknown [id number] 2.16.840.1.067094.3.579.2. 462 Unknown [id number] 2.16.840.1.255348.3.579.2. 462 Unknown [id number] 2.16.840.1.875908.3.579.2. 462 Unknown [id number] 2.16.840.1.070414.3.579.2. 462 Unknown [id number] 2.16.840.1.031427.3.579.2. 462 Unknown [id number] 2.16.840.1.878706.3.579.2. 462 Unknown [id number]. 462 Social History Date Type Detail Facility Start: 09-26-2021 Tobacco smoking status NHIS Never smoked tobacco [facility] Start: 09-26-2021 Tobacco use and exposure Smokeless tobacco non-user [facility] Start: 1990 Sex Assigned At Not on file [facility] Start: 11-05-2021 End: 06-26-2023 Tobacco smoking status LAIS Unknown if ever smoked [facility] Start: 04-16-2020 With Family [facility] Start: 1990 Sex Assigned At Female [facility] NEGATED: Highlighted row [facility] Goals Date Patient Goal Desired Activity /State Clinical Notes 09-26-2021 Mohamud Zamorano APRN.CNP - 09/26/2021 7:19 PM EDT Note Date & Type Note Facility 09-26-2021 Note HNO ID: [id number] Author: Mohamud Zamorano APRN.[place] Service: ? Author Type: Nurse Practitioner Type: [...] Sinus: Maxillary sinus tenderness present. Mouth/Throat: Lips: [place]. Mouth: Mucous membranes are moist. Pharynx: Oropharynx [...] to immediately pro (more content not included)... [facility] 09-26-2021 History of Present illness Narrative Subjective HPI Nontoxic-appearing female presents [...] Sinus: Maxillary sinus tenderness present. Mouth/Throat: Lips: [place]. Mouth: Mucous membranes are moist. Pharynx: Oropharynx [...] of care. This note was generated using [employer] software. It may contain errors in wording, punctuation, or spelling.. Mohamud Zamorano APRN.INDUSTRIAL EDUCATION TEACHER documented in this encounter [facility] Evaluation note Diagnosis Acute maxillary sinusitis, recurrence not specified- Primary [facility] Diagnosis Onset Date Resolution Status BMI 36.0-36.9,adult acute Dichorionic diamniotic twin acute DVT of lower extremity (deep venous thrombosis) acute Family history of cleft palate acute Family history of congenital heart defect acute Family history of Down syndrome acute Family history of Jack syndrome acute Herpes simplex type 1 infection acute History of section, classical acute LGSIL on Pap smear of cervix acute acute Supervision of high risk , antepartum acute Syncope acute Hypothyroid chronic [facility] Work Phone: Evaluation note* Diagnosis Onset Date Resolution Status BMI 36.0-36.9,adult acute Dichorionic diamniotic twin acute DVT of lower extremity (deep venous thrombosis) acute Family history of cleft palate acute Family history of congenital heart defect acute Family history of Down syndrome acute Family history of Jack syndrome acute Herpes simplex type 1 infection acute History of section, classical acute LGSIL on Pap smear of cervix acute acute Supervision of high risk , antepartum acute Syncope acute Hypothyroid chronic BMI 36.0-36.9,adult acute Dichorionic diamniotic twin acute DVT of lower extremity (deep venous thrombosis) acute Family history of cleft palate acute Family history of congenital heart defect acute Family history of Down syndrome acute Family history of Jack syndrome acute Herpes simplex type 1 infection acute History of section, classical acute LGSIL on Pap smear of cervix acute acute Supervision of high risk , antepartum acute Syncope acute Hypothyroid chronic [facility] Work Phone: Evaluation note* Diagnosis Onset Date Resolution Status Dichorionic diamniotic twin acute DVT of lower extremity (deep venous thrombosis) acute Family history of cleft palate acute Family history of congenital heart defect acute Family history of Down syndrome acute Family history of Jack syndrome acute History of section, classical acute LGSIL on Pap smear of cervix acute acute Supervision of high risk , antepartum acute Hypothyroid chronic BMI 36.0-36.9,adult resolved Herpes simplex type 1 infection resolved Syncope resolved Dichorionic diamniotic twin acute DVT of lower extremity (deep venous thrombosis) acute Family history of cleft palate acute Family history of congenital heart defect acute Family history of Down syndrome acute Family history of Jack syndrome acute History of section, classical acute LGSIL on Pap smear of cervix acute acute Supervision of high risk , antepartum acute Hypothyroid chronic BMI 36.0-36.9,adult resolved Herpes simplex type 1 infection resolved Syncope resolved Dichorionic diamniotic twin acute DVT of lower extremity (deep venous thrombosis) acute Family history of cleft palate acute Family history of congenital heart defect acute Family history of Down syndrome acute Family history of Jack syndrome acute History of section, classical acute LGSIL on Pap smear of cervix acute acute Supervision of high risk , antepartum acute Hypothyroid chronic BMI 36.0-36.9,adult resolved Herpes simplex type 1 infection resolved Syncope resolved Dichorionic diamniotic twin acute DVT of lower extremity (deep venous thrombosis) acute Family history of cleft palate acute Family history of congenital heart defect acute Family history of Down syndrome acute Family history of Jack syndrome acute History of section, classical acute LGSIL on Pap smear of cervix acute acute Supervision of high risk , antepartum acute Hypothyroid chronic Herpes simplex type 1 infection resolved Syncope resolved Abnormal glucose level acute Dichorionic diamniotic twin acute DVT of lower extremity (deep venous thrombosis) acute Family history of cleft palate acute Family history of congenital heart defect acute Family history of Down syndrome acute Family history of Jack syndrome acute History of section, classical acute LGSIL on Pap smear of cervix acute acute Supervision of high risk , antepartum acute Hypothyroid chronic [facility] Work Phone: Evaluation note* Diagnosis Onset Date Resolution Status Dichorionic diamniotic twin acute DVT of lower extremity (deep venous thrombosis) acute Family history of cleft palate acute Family history of congenital heart defect acute Family history of Down syndrome acute Family history of Jack syndrome acute History of section, classical acute LGSIL on Pap smear of cervix acute acute Supervision of high risk , antepartum acute Hypothyroid chronic BMI 36.0-36.9,adult resolved Herpes simplex type 1 infection resolved Syncope resolved Dichorionic diamniotic twin acute DVT of lower extremity (deep venous thrombosis) acute Family history of cleft palate acute Family history of congenital heart defect acute Family history of Down syndrome acute Family history of Jack syndrome acute History of section, classical acute LGSIL on Pap smear of cervix acute acute Supervision of high risk , antepartum acute Hypothyroid chronic BMI 36.0-36.9,adult resolved Herpes simplex type 1 infection resolved Syncope resolved Dichorionic diamniotic twin acute DVT of lower extremity (deep venous thrombosis) acute Family history of cleft palate acute Family history of congenital heart defect acute Family history of Down syndrome acute Family history of Jack syndrome acute History of section, classical acute LGSIL on Pap smear of cervix acute acute Supervision of high risk , antepartum acute Hypothyroid chronic Herpes simplex type 1 infection resolved Syncope resolved Abnormal glucose level acute Dichorionic diamniotic twin acute DVT of lower extremity (deep venous thrombosis) acute Family history of cleft palate acute Family history of congenital heart defect acute Family history of Down syndrome acute Family history of Jack syndrome acute History of section, classical acute LGSIL on Pap smear of cervix acute acute Supervision of high risk , antepartum acute Hypothyroid chronic Abnormal glucose level acute Dichorionic diamniotic twin acute DVT of lower extremity (deep venous thrombosis) acute Family history of cleft palate acute Family history of congenital heart defect acute Family history of Down syndrome acute Family history of Jack syndrome acute History of section, classical acute LGSIL on Pap smear of cervix acute acute Supervision of high risk , antepartum acute Hypothyroid chronic [facility] Work Phone: Evaluation note* Diagnosis Onset Date Resolution Status Dichorionic diamniotic twin acute DVT of lower extremity (deep venous thrombosis) acute Family history of cleft palate acute Family history of congenital heart defect acute Family history of Down syndrome acute Family history of Jack syndrome acute History of section, classical acute LGSIL on Pap smear of cervix acute acute Supervision of high risk , antepartum acute Hypothyroid chronic BMI 36.0-36.9,adult resolved Herpes simplex type 1 infection resolved Syncope resolved Dichorionic diamniotic twin acute DVT of lower extremity (deep venous thrombosis) acute Family history of cleft palate acute Family history of congenital heart defect acute Family history of Down syndrome acute Family history of Jack syndrome acute History of section, classical acute LGSIL on Pap smear of cervix acute acute Supervision of high risk , antepartum acute Hypothyroid chronic Herpes simplex type 1 infection resolved Syncope resolved Abnormal glucose level acute Dichorionic diamniotic twin acute DVT of lower extremity (deep venous thrombosis) acute Family history of cleft palate acute Family history of congenital heart defect acute Family history of Down syndrome acute Family history of Jack syndrome acute History of section, classical acute LGSIL on Pap smear of cervix acute acute Supervision of high risk , antepartum acute Hypothyroid chronic Abnormal glucose level acute Dichorionic diamniotic twin acute DVT of lower extremity (deep venous thrombosis) acute Family history of cleft palate acute Family history of congenital heart defect acute Family history of Down syndrome acute Family history of Jack syndrome acute History of section, classical acute LGSIL on Pap smear of cervix acute acute Supervision of high risk , antepartum acute Hypothyroid chronic Abnormal glucose level acute Dichorionic diamniotic twin acute DVT of lower extremity (deep venous thrombosis) acute Family history of cleft palate acute Family history of congenital heart defect acute Family history of Down syndrome acute Family history of Jack syndrome acute History of section, classical acute LGSIL on Pap smear of cervix acute acute Supervision of high risk , antepartum acute Hypothyroid chronic [facility] Work Phone: Evaluation note* Diagnosis Onset Date Resolution Status Dichorionic diamniotic twin acute DVT of lower extremity (deep venous thrombosis) acute Family history of cleft palate acute Family history of congenital heart defect acute Family history of Down syndrome acute Family history of Jack syndrome acute History of section, classical acute LGSIL on Pap smear of cervix acute acute Supervision of high risk , antepartum acute Hypothyroid chronic BMI 36.0-36.9,adult resolved Herpes simplex type 1 infection resolved Syncope resolved Dichorionic diamniotic twin acute DVT of lower extremity (deep venous thrombosis) acute Family history of cleft palate acute Family history of congenital heart defect acute Family history of Down syndrome acute Family history of Jack syndrome acute History of section, classical acute LGSIL on Pap smear of cervix acute acute Supervision of high risk , antepartum acute Hypothyroid chronic Herpes simplex type 1 infection resolved Syncope resolved Abnormal glucose level acute Dichorionic diamniotic twin acute DVT of lower extremity (deep venous thrombosis) acute Family history of cleft palate acute Family history of congenital heart defect acute Family history of Down syndrome acute Family history of Jack syndrome acute History of section, classical acute LGSIL on Pap smear of cervix acute acute Supervision of high risk , antepartum acute Hypothyroid chronic Abnormal glucose level acute Dichorionic diamniotic twin acute DVT of lower extremity (deep venous thrombosis) acute Family history of cleft palate acute Family history of congenital heart defect acute Family history of Down syndrome acute Family history of Jack syndrome acute History of section, classical acute LGSIL on Pap smear of cervix acute acute Supervision of high risk , antepartum acute Hypothyroid chronic Abnormal glucose level acute Dichorionic diamniotic twin acute DVT of lower extremity (deep venous thrombosis) acute Family history of cleft palate acute Family history of congenital heart defect acute Family history of Down syndrome acute Family history of Jack syndrome acute History of section, classical acute LGSIL on Pap smear of cervix acute acute Supervision of high risk , antepartum acute Hypothyroid chronic Abnormal glucose level acute Dichorionic diamniotic twin acute DVT of lower extremity (deep venous thrombosis) acute Family history of cleft palate acute Family history of congenital heart defect acute Family history of Down syndrome acute Family history of Jack syndrome acute History of section, classical acute LGSIL on Pap smear of cervix acute acute Supervision of high risk , antepartum acute Hypothyroid chronic [facility] Work Phone: Evaluation note* Diagnosis Onset Date Resolution Status Dichorionic diamniotic twin acute DVT of lower extremity (deep venous thrombosis) acute Family history of cleft palate acute Family history of congenital heart defect acute Family history of Down syndrome acute Family history of Jack syndrome acute History of section, classical acute LGSIL on Pap smear of cervix acute acute Supervision of high risk , antepartum acute Hypothyroid chronic BMI 36.0-36.9,adult resolved Herpes simplex type 1 infection resolved Syncope resolved Dichorionic diamniotic twin acute DVT of lower extremity (deep venous thrombosis) acute Family history of cleft palate acute Family history of congenital heart defect acute Family history of Down syndrome acute Family history of Jack syndrome acute History of section, classical acute LGSIL on Pap smear of cervix acute acute Supervision of high risk , antepartum acute Hypothyroid chronic Herpes simplex type 1 infection resolved Syncope resolved Abnormal glucose level acute Dichorionic diamniotic twin acute DVT of lower extremity (deep venous thrombosis) acute Family history of cleft palate acute Family history of congenital heart defect acute Family history of Down syndrome acute Family history of Jack syndrome acute History of section, classical acute LGSIL on Pap smear of cervix acute acute Supervision of high risk , antepartum acute Hypothyroid chronic Abnormal glucose level acute Dichorionic diamniotic twin acute DVT of lower extremity (deep venous thrombosis) acute Family history of cleft palate acute Family history of congenital heart defect acute Family history of Down syndrome acute Family history of Jack syndrome acute History of section, classical acute LGSIL on Pap smear of cervix acute acute Supervision of high risk , antepartum acute Hypothyroid chronic Abnormal glucose level acute Dichorionic diamniotic twin acute DVT of lower extremity (deep venous thrombosis) acute Family history of cleft palate acute Family history of congenital heart defect acute Family history of Down syndrome acute Family history of Jack syndrome acute History of section, classical acute LGSIL on Pap smear of cervix acute acute Supervision of high risk , antepartum acute Hypothyroid chronic Abnormal glucose level acute Dichorionic diamniotic twin acute DVT of lower extremity (deep venous thrombosis) acute Family history of cleft palate acute Family history of congenital heart defect acute Family history of Down syndrome acute Family history of Jack syndrome acute History of section, classical acute LGSIL on Pap smear of cervix acute acute Supervision of high risk , antepartum acute Hypothyroid chronic Abnormal glucose level acute Dichorionic diamniotic twin acute DVT of lower extremity (deep venous thrombosis) acute Family history of cleft palate acute Family history of congenital heart defect acute Family history of Down syndrome acute Family history of Jack syndrome acute History of section, classical acute LGSIL on Pap smear of cervix acute acute Supervision of high risk , antepartum acute Hypothyroid chronic Abnormal glucose level acute Dichorionic diamniotic twin acute DVT of lower extremity (deep venous thrombosis) acute Family history of cleft palate acute Family history of congenital heart defect acute Family history of Down syndrome acute Family history of Jack syndrome acute History of section, classical acute LGSIL on Pap smear of cervix acute acute Supervision of high risk , antepartum acute Hypothyroid chronic [facility] Work Phone: Evaluation note* Diagnosis Onset Date Resolution Status DVT of lower extremity (deep venous thrombosis) acute LGSIL on Pap smear of cervix acute Hypothyroid chronic Dichorionic diamniotic twin resolved Family history of cleft palate resolved Family history of congenital heart defect resolved Family history of Down syndrome resolved Family history of Jack syndrome resolved Herpes simplex type 1 infection resolved History of section, classical resolved resolved Supervision of high risk , antepartum resolved Syncope resolved DVT of lower extremity (deep venous thrombosis) acute LGSIL on Pap smear of cervix acute Hypothyroid chronic Abnormal glucose level resol loretta Dichorionic diamniotic twin resolved Family history of cleft palate resolved Family history of congenital heart defect resolved Family history of Down syndrome resolved Family history of Jack syndrome resolved History of section, classical resolved resolved Supervision of high risk , antepartum resolved DVT of lower extremity (deep venous thrombosis) acute LGSIL on Pap smear of cervix acute Hypothyroid chronic Abnormal glucose level resol loretta Dichorionic diamniotic twin resolved Family history of cleft palate resolved Family history of congenital heart defect resolved Family history of Down syndrome resolved Family history of Jack syndrome resolved History of section, classical resolved resolved Supervision of high risk , antepartum resolved DVT of lower extremity (deep venous thrombosis) acute LGSIL on Pap smear of cervix acute Hypothyroid chronic Abnormal glucose level resol loretta Dichorionic diamniotic twin resolved Family history of cleft palate resolved Family history of congenital heart defect resolved Family history of Down syndrome resolved Family history of Jack syndrome resolved History of section, classical resolved resolved Supervision of high risk , antepartum resolved DVT of lower extremity (deep venous thrombosis) acute LGSIL on Pap smear of cervix acute Hypothyroid chronic Abnormal glucose level resol loretta Dichorionic diamniotic twin resolved Family history of cleft palate resolved Family history of congenital heart defect resolved Family history of Down syndrome resolved Family history of Jack syndrome resolved History of section, classical resolved resolved Supervision of high risk , antepartum resolved DVT of lower extremity (deep venous thrombosis) acute LGSIL on Pap smear of cervix acute Hypothyroid chronic Abnormal glucose level resol loretta Dichorionic diamniotic twin resolved Family history of cleft palate resolved Family history of congenital heart defect resolved Family history of Down syndrome resolved Family history of Jack syndrome resolved History of section, classical resolved resolved Supervision of high risk , antepartum resolved DVT of lower extremity (deep venous thrombosis) acute LGSIL on Pap smear of cervix acute Hypothyroid chronic Abnormal glucose level resol loretta Dichorionic diamniotic twin resolved Family history of cleft palate resolved Family history of congenital heart defect resolved Family history of Down syndrome resolved Family history of Jack syndrome resolved History of section, classical resolved resolved Supervision of high risk , antepartum resolved DVT of lower extremity (deep venous thrombosis) acute LGSIL on Pap smear of cervix acute Status post bilateral salpingectomy acute Hypothyroid chronic Abnormal glucose level resol loretta Dichorionic diamniotic twin resolved Family history of cleft palate resolved Family history of congenital heart defect resolved Family history of Down syndrome resolved Family history of Jack syndrome resolved History of section, classical resolved resolved Supervision of high risk , antepartum resolved [facility] Work Phone: Evaluation note* Diagnosis Onset Date Resolution Status DVT of lower extremity (deep venous thrombosis) acute LGSIL on Pap smear of cervix acute Hypothyroid chronic Dichorionic diamniotic twin resolved Family history of cleft palate resolved Family history of congenital heart defect resolved Family history of Down syndrome resolved Family history of Jack syndrome resolved Herpes simplex type 1 infection resolved History of section, classical resolved resolved Supervision of high risk , antepartum resolved Syncope resolved DVT of lower extremity (deep venous thrombosis) acute LGSIL on Pap smear of cervix acute Hypothyroid chronic Abnormal glucose level resol loretta Dichorionic diamniotic twin resolved Family history of cleft palate resolved Family history of congenital heart defect resolved Family history of Down syndrome resolved Family history of Jack syndrome resolved History of section, classical resolved resolved Supervision of high risk , antepartum resolved DVT of lower extremity (deep venous thrombosis) acute LGSIL on Pap smear of cervix acute Hypothyroid chronic Abnormal glucose level resol loretta Dichorionic diamniotic twin resolved Family history of cleft palate resolved Family history of congenital heart defect resolved Family history of Down syndrome resolved Family history of Jack syndrome resolved History of section, classical resolved resolved Supervision of high risk , antepartum resolved DVT of lower extremity (deep venous thrombosis) acute LGSIL on Pap smear of cervix acute Hypothyroid chronic Abnormal glucose level resol loretta Dichorionic diamniotic twin resolved Family history of cleft palate resolved Family history of congenital heart defect resolved Family history of Down syndrome resolved Family history of Jack syndrome resolved History of section, classical resolved resolved Supervision of high risk , antepartum resolved DVT of lower extremity (deep venous thrombosis) acute LGSIL on Pap smear of cervix acute Hypothyroid chronic Abnormal glucose level resol loretta Dichorionic diamniotic twin resolved Family history of cleft palate resolved Family history of congenital heart defect resolved Family history of Down syndrome resolved Family history of Jack syndrome resolved History of section, classical resolved resolved Supervision of high risk , antepartum resolved DVT of lower extremity (deep venous thrombosis) acute LGSIL on Pap smear of cervix acute Hypothyroid chronic Abnormal glucose level resol loretta Dichorionic diamniotic twin resolved Family history of cleft palate resolved Family history of congenital heart defect resolved Family history of Down syndrome resolved Family history of Jack syndrome resolved History of section, classical resolved resolved Supervision of high risk , antepartum resolved DVT of lower extremity (deep venous thrombosis) acute LGSIL on Pap smear of cervix acute Hypothyroid chronic Abnormal glucose level resol loretta Dichorionic diamniotic twin resolved Family history of cleft palate resolved Family history of congenital heart defect resolved Family history of Down syndrome resolved Family history of Jack syndrome resolved History of section, classical resolved resolved Supervision of high risk , antepartum resolved DVT of lower extremity (deep venous thrombosis) acute LGSIL on Pap smear of cervix acute Status post bilateral salpingectomy acute Hypothyroid chronic Abnormal glucose level resol loretta Dichorionic diamniotic twin resolved Family history of cleft palate resolved Family history of congenital heart defect resolved Family history of Down syndrome resolved Family history of Jack syndrome resolved History of section, classical resolved resolved Supervision of high risk , antepartum resolved hypertension acut e [facility] Work Phone: Evaluation noteNo assessment information available [facility] Work Phone: Evaluation note* Diagnosis Onset Date Resolution Status Abnormal uterine bleeding ac radha Encounter for routine gynecological examination noneactive [facility] Work Phone: Summary Purpose Family History No Family History Records Found Relationship Condition Age at Onset Recorded Date/T isaiah mother Age related osteoporosis Unknown Cerebrovascular accident (CVA) Unknown Multiple myeloma Unknown Complication of anesthesia Unknown History of blood clots Unknown Malignant neoplasm Unknown grandfather Alcoholism Unknown Asthma Unknown Diabetes mellitus Unknown Myocardial infarction Unknown Disorder of respiratory system Unknown Cardiac disease Unknown grandfather Myocardial infarction Unknown grandmother Complication of anesthesia Unknown Arthritis Unknown Malignant neoplasm of breast Unknown Epilepsy Unknown Malignant neoplasm of skin Unknown father Arthritis Unknown Depression Unknown Hypertension Unknown High blood cholesterol Unknown Disorder of thyroid Unknown daughter Jack's syndrome Unknown Advance Directives No Advanced Directives Records Found Advance Directive Response Recorded Date/ Time Living Will No April 16 1:29pm Power of Datacap Developer No April 16, 2020 1:29pm Advance Directive Response Recorded Date/ Time Living Will No March 16 4:50pm Power of Datacap Developer No March 16, 2022 4:50pm Advance Directive Response Recorded Date/ Time Living Will No March 16 3:50pm Power of Datacap Developer No March 16, 2022 3:50pm Advance Directive Response Recorded Date/ Time Living Will No May 07, 2 022 5:18am Power of Datacap Developer No May 07, 2022 5:18am Advance Directive Response Recorded Date/ Time Living Will No November 01, 2022 1 0:08pm Power of Datacap Developer No November 01, 2022 10:08pm Advance Directive Response Recorded Date/ Time Living Will No November 01, 2022 9 :08pm Power of Datac[employer] Developer No November 01, 2022 9:08pm Chief Complaint and Reason for Visit Chief Complaint Amb Documentation NOB LMP 08/28/21 Reason for Visit BMI 36.0-36.9,adult 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) Family history of cleft palate Family history of congenital heart defect Family history of Down syndrome Family history of Jack syndrome Herpes simplex type 1 infection History of section, 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 Supervision of high risk , antepartum Syncope Hypothyroid Chief Complaint Amb Documentation NOB LMP 08/28/21 EORDERS est ob 12w TWINS Reason for Visit BMI 36.0-36.9,adult 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) Family history of cleft palate Family history of congenital heart defect Family history of Down syndrome Family history of Jack syndrome Herpes simplex type 1 infection History of section, 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 Supervision of high risk , antepartum Syncope Hypothyroid BMI 36.0-36.9,adult 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) Family history of cleft palate Family history of congenital heart defect Family history of Down syndrome Family history of Jack syndrome Herpes simplex type 1 infection History of section, 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 Supervision of high risk , antepartum Syncope Hypothyroid Chief Complaint EORDERS est ob 12w TWINS 14 WK OB *twins 18 WK OB *twins 22 WK OB *Twins Encounter for screening for diabetes mellitus 27wk ob *twins Reason for Visit Dichorionic diamniot ic twin DVT of lower extremity (deep venous thrombosis) Family history of cleft palate Family history of congenital heart defect Family history of Down syndrome Family history of Jack syndrome History of section, 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 Supervision of high risk , antepartum Hypothyroid BMI 36.0-36.9,adult Herpes simplex type 1 infection Syncope 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) Family history of cleft palate Family history of congenital heart defect Family history of Down syndrome Family history of Jack syndrome History of section, 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 Supervision of high risk , antepartum Hypothyroid BMI 36.0-36.9,adult Herpes simplex type 1 infection Syncope 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) Family history of cleft palate Family history of congenital heart defect Family history of Down syndrome Family history of Jack syndrome History of section, 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 Supervision of high risk , antepartum Hypothyroid BMI 36.0-36.9,adult Herpes simplex type 1 infection Syncope 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) Family history of cleft palate Family history of congenital heart defect Family history of Down syndrome Family history of Jack syndrome History of section, 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 Supervision of high risk , antepartum Hypothyroid Herpes simplex type 1 infection Syncope Abnormal glucose level 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) Family history of cleft palate Family history of congenital heart defect Family history of Down syndrome Family history of Jack syndrome History of section, 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 Supervision of high risk , antepartum Hypothyroid Chief Complaint EORDERS est ob 12w TWINS 14 WK OB *twins 18 WK OB *twins 22 WK OB *Twins Encounter for screening for diabetes mellitus 27wk ob *twins SYNCOPE Reason for Visit Dichorionic diamniot ic twin DVT of lower extremity (deep venous thrombosis) Family history of cleft palate Family history of congenital heart defect Family history of Down syndrome Family history of Jack syndrome History of section, 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 Supervision of high risk , antepartum Hypothyroid BMI 36.0-36.9,adult Herpes simplex type 1 infection Syncope 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) Family history of cleft palate Family history of congenital heart defect Family history of Down syndrome Family history of Jack syndrome History of section, 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 Supervision of high risk , antepartum Hypothyroid BMI 36.0-36.9,adult Herpes simplex type 1 infection Syncope 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) Family history of cleft palate Family history of congenital heart defect Family history of Down syndrome Family history of Jack syndrome History of section, 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 Supervision of high risk , antepartum Hypothyroid BMI 36.0-36.9,adult Herpes simplex type 1 infection Syncope 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) Family history of cleft palate Family history of congenital heart defect Family history of Down syndrome Family history of Jack syndrome History of section, 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 Supervision of high risk , antepartum Hypothyroid Herpes simplex type 1 infection Syncope Abnormal glucose level 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) Family history of cleft palate Family history of congenital heart defect Family history of Down syndrome Family history of Jack syndrome History of section, 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 Supervision of high risk , antepartum Hypothyroid Chief Complaint 14 WK OB *twins 18 WK OB *twins 22 WK OB *Twins Encounter for screening for diabetes mellitus 27wk ob *twins SYNCOPE 29 WK OB *twins GROWTH EVERY 4 WKS Reason for Visit Dichorionic diamniot ic twin DVT of lower extremity (deep venous thrombosis) Family history of cleft palate Family history of congenital heart defect Family history of Down syndrome Family history of Jack syndrome History of section, 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 Supervision of high risk , antepartum Hypothyroid BMI 36.0-36.9,adult Herpes simplex type 1 infection Syncope 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) Family history of cleft palate Family history of congenital heart defect Family history of Down syndrome Family history of Jack syndrome History of section, 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 Supervision of high risk , antepartum Hypothyroid BMI 36.0-36.9,adult Herpes simplex type 1 infection Syncope 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) Family history of cleft palate Family history of congenital heart defect Family history of Down syndrome Family history of Jack syndrome History of section, 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 Supervision of high risk , antepartum Hypothyroid Herpes simplex type 1 infection Syncope Abnormal glucose level 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) Family history of cleft palate Family history of congenital heart defect Family history of Down syndrome Family history of Jack syndrome History of section, 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 Supervision of high risk , antepartum Hypothyroid Abnormal glucose level 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) Family history of cleft palate Family history of congenital heart defect Family history of Down syndrome Family history of Jack syndrome History of section, 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 Supervision of high risk , antepartum Hypothyroid Chief Complaint 18 WK OB *twins 22 WK OB *Twins Encounter for screening for diabetes mellitus 27wk ob *twins SYNCOPE 29 WK OB *twins GROWTH EVERY 4 WKS 31 WK OB *twins [facility] 32WKS Reason for Visit Dichorionic diamniot ic twin DVT of lower extremity (deep venous thrombosis) Family history of cleft palate Family history of congenital heart defect Family history of Down syndrome Family history of Jack syndrome History of section, 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 Supervision of high risk , antepartum Hypothyroid BMI 36.0-36.9,adult Herpes simplex type 1 infection Syncope 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) Family history of cleft palate Family history of congenital heart defect Family history of Down syndrome Family history of Jack syndrome History of section, 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 Supervision of high risk , antepartum Hypothyroid Herpes simplex type 1 infection Syncope Abnormal glucose level 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) Family history of cleft palate Family history of congenital heart defect Family history of Down syndrome Family history of Jack syndrome History of section, 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 Supervision of high risk , antepartum Hypothyroid Abnormal glucose level 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) Family history of cleft palate Family history of congenital heart defect Family history of Down syndrome Family history of Jack syndrome History of section, 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 Supervision of high risk , antepartum Hypothyroid Abnormal glucose level 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) Family history of cleft palate Family history of congenital heart defect Family history of Down syndrome Family history of Jack syndrome History of section, 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 Supervision of high risk , antepartum Hypothyroid Chief Complaint 18 WK OB *twins 22 WK OB *Twins Encounter for screening for diabetes mellitus 27wk ob *twins SYNCOPE 29 WK OB *twins GROWTH EVERY 4 WKS 31 WK OB *twins [place] [facility] 32WKS [place] [facility] 32WKS Reason for Visit Dichorionic diamniot ic twin DVT of lower extremity (deep venous thrombosis) Family history of cleft palate Family history of congenital heart defect Family history of Down syndrome Family history of Jack syndrome History of section, 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 Supervision of high risk , antepartum Hypothyroid BMI 36.0-36.9,adult Herpes simplex type 1 infection Syncope 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) Family history of cleft palate Family history of congenital heart defect Family history of Down syndrome Family history of Jack syndrome History of section, 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 Supervision of high risk , antepartum Hypothyroid Herpes simplex type 1 infection Syncope Abnormal glucose level 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) Family history of cleft palate Family history of congenital heart defect Family history of Down syndrome Family history of Jack syndrome History of section, 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 Supervision of high risk , antepartum Hypothyroid Abnormal glucose level 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) Family history of cleft palate Family history of congenital heart defect Family history of Down syndrome Family history of Jack syndrome History of section, 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 Supervision of high risk , antepartum Hypothyroid Abnormal glucose level 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) Family history of cleft palate Family history of congenital heart defect Family history of Down syndrome Family history of Jack syndrome History of section, 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 Supervision of high risk , antepartum Hypothyroid Chief Complaint 18 WK OB *twins 22 WK OB *Twins Encounter for screening for diabetes mellitus 27wk ob *twins SYNCOPE 29 WK OB *twins GROWTH EVERY 4 WKS 31 WK OB *twins [place] [place] [facility] 32WKS [place] [facility] 32WKS [place] [facility] 32WKS 34wk twins BPP is at 9:30 LT FOOT SWELLING *CALL WET READ* Reason for Visit Dichorionic diamniot ic twin DVT of lower extremity (deep venous thrombosis) Family history of cleft palate Family history of congenital heart defect Family history of Down syndrome Family history of Jack syndrome History of section, 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 Supervision of high risk , antepartum Hypothyroid BMI 36.0-36.9,adult Herpes simplex type 1 infection Syncope 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) Family history of cleft palate Family history of congenital heart defect Family history of Down syndrome Family history of Jack syndrome History of section, 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 Supervision of high risk , antepartum Hypothyroid Herpes simplex type 1 infection Syncope Abnormal glucose level 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) Family history of cleft palate Family history of congenital heart defect Family history of Down syndrome Family history of Jack syndrome History of section, 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 Supervision of high risk , antepartum Hypothyroid Abnormal glucose level 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) Family history of cleft palate Family history of congenital heart defect Family history of Down syndrome Family history of Jack syndrome History of section, 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 Supervision of high risk , antepartum Hypothyroid Abnormal glucose level 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) Family history of cleft palate Family history of congenital heart defect Family history of Down syndrome Family history of Jack syndrome History of section, 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 Supervision of high risk , antepartum Hypothyroid Abnormal glucose level 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) Family history of cleft palate Family history of congenital heart defect Family history of Down syndrome Family history of Jack syndrome History of section, 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 Supervision of high risk , antepartum Hypothyroid Chief Complaint 18 WK OB *twins 22 WK OB *Twins Encounter for screening for diabetes mellitus 27wk ob *twins SYNCOPE 29 WK OB *twins GROWTH EVERY 4 WKS 31 WK OB *twins [place] [facility] 32WKS [place] 32WKS [place] [facility] 32WKS 34wk twins BPP is at 9:30 LT FOOT SWELLING *CALL WET READ* 35 wk OB *twins [place] [place] [facility] 32WKS 36 wk OB *twins R/O PRE E Reason for Visit Dichorionic diamniot ic twin DVT of lower extremity (deep venous thrombosis) Family history of cleft palate Family history of congenital heart defect Family history of Down syndrome Family history of Jack syndrome History of section, 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 Supervision of high risk , antepartum Hypothyroid BMI 36.0-36.9,adult Herpes simplex type 1 infection Syncope 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) Family history of cleft palate Family history of congenital heart defect Family history of Down syndrome Family history of Jack syndrome History of section, 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 Supervision of high risk , antepartum Hypothyroid Herpes simplex type 1 infection Syncope Abnormal glucose level 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) Family history of cleft palate Family history of congenital heart defect Family history of Down syndrome Family history of Jack syndrome History of section, 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 Supervision of high risk , antepartum Hypothyroid Abnormal glucose level 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) Family history of cleft palate Family history of congenital heart defect Family history of Down syndrome Family history of Jack syndrome History of section, 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 Supervision of high risk , antepartum Hypothyroid Abnormal glucose level 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) Family history of cleft palate Family history of congenital heart defect Family history of Down syndrome Family history of Jack syndrome History of section, 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 Supervision of high risk , antepartum Hypothyroid Abnormal glucose level 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) Family history of cleft palate Family history of congenital heart defect Family history of Down syndrome Family history of Jack syndrome History of section, 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 Supervision of high risk , antepartum Hypothyroid Abnormal glucose level 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) Family history of cleft palate Family history of congenital heart defect Family history of Down syndrome Family history of Jack syndrome History of section, 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 Supervision of high risk , antepartum Hypothyroid Abnormal glucose level 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) Family history of cleft palate Family history of congenital heart defect Family history of Down syndrome Family history of Jack syndrome History of section, 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 Supervision of high risk , antepartum Hypothyroid Chief Complaint 22 WK OB *Twins Encounter for screening for diabetes mellitus 27wk ob *twins SYNCOPE 29 WK OB *twins GROWTH EVERY 4 WKS 31 WK OB *twins [place] [facility] 32WKS [place] 32WKS [place] [facility] 32WKS 34wk twins BPP is at 9:30 LT FOOT SWELLING *CALL WET READ* 35 wk OB *twins [place] [place] [facility] 32WKS 36 wk OB *twins R/O PRE E C SECTION/CSECTION DELIVERY C SECTION/CSECTION DELIVERY C SECTION/CSECTION DELIVERY Reason for Visit DVT of lower extremi ty (deep venous thrombosis) LGSIL on Pap smear of cervix Hypothyroid Dichorionic diamniotic twin Family history of cleft palate Family history of congenital heart defect Family history of Down syndrome Family history of Jack syndrome Herpes simplex type 1 infection History of section, classical Supervision of high risk , antepartum Syncope DVT of lower extremity (deep venous thrombosis) LGSIL on Pap smear of cervix Hypothyroid Abnormal glucose level Dichorionic diamniotic twin Family history of cleft palate Family history of congenital heart defect Family history of Down syndrome Family history of Jack syndrome History of section, classical Supervision of high risk , antepartum DVT of lower extremity (deep venous thrombosis) LGSIL on Pap smear of cervix Hypothyroid Abnormal glucose level Dichorionic diamniotic twin Family history of cleft palate Family history of congenital heart defect Family history of Down syndrome Family history of Jack syndrome History of section, classical Supervision of high risk , antepartum DVT of lower extremity (deep venous thrombosis) LGSIL on Pap smear of cervix Hypothyroid Abnormal glucose level Dichorionic diamniotic twin Family history of cleft palate Family history of congenital heart defect Family history of Down syndrome Family history of Jack syndrome History of section, classical Supervision of high risk , antepartum DVT of lower extremity (deep venous thrombosis) LGSIL on Pap smear of cervix Hypothyroid Abnormal glucose level Dichorionic diamniotic twin Family history of cleft palate Family history of congenital heart defect Family history of Down syndrome Family history of Jack syndrome History of section, classical Supervision of high risk , antepartum DVT of lower extremity (deep venous thrombosis) LGSIL on Pap smear of cervix Hypothyroid Abnormal glucose level Dichorionic diamniotic twin Family history of cleft palate Family history of congenital heart defect Family history of Down syndrome Family history of Jack syndrome History of section, classical Supervision of high risk , antepartum DVT of lower extremity (deep venous thrombosis) LGSIL on Pap smear of cervix Hypothyroid Abnormal glucose level Dichorionic diamniotic twin Family history of cleft palate Family history of congenital heart defect Family history of Down syndrome Family history of Jack syndrome History of section, classical Supervision of high risk , antepartum DVT of lower extremity (deep venous thrombosis) LGSIL on Pap smear of cervix Status post bilateral salpingectomy Hypothyroid Abnormal glucose level Dichorionic diamniotic twin Family history of cleft palate Family history of congenital heart defect Family history of Down syndrome Family history of Jack syndrome History of section, classical Supervision of high risk , antepartum Chief Complaint 22 WK OB *Twins Encounter for screening for diabetes mellitus 27wk ob *twins SYNCOPE 29 WK OB *twins GROWTH EVERY 4 WKS 31 WK OB *twins [place] [facility] 32WKS [place] 32WKS [place] [facility] 32WKS 34wk twins BPP is at 9:30 LT FOOT SWELLING *CALL WET READ* 35 wk OB *twins [place] [place] [facility] 32WKS 36 wk OB *twins R/O PRE E C SECTION/CSECTION DELIVERY C SECTION/CSECTION DELIVERY C SECTION/CSECTION DELIVERY C SECTION/CSECTION DELIVERY Reason for Visit DVT of lower extremi ty (deep venous thrombosis) LGSIL on Pap smear of cervix Hypothyroid Dichorionic diamniotic twin Family history of cleft palate Family history of congenital heart defect Family history of Down syndrome Family history of Jack syndrome Herpes simplex type 1 infection History of section, classical Supervision of high risk , antepartum Syncope DVT of lower extremity (deep venous thrombosis) LGSIL on Pap smear of cervix Hypothyroid Abnormal glucose level Dichorionic diamniotic twin Family history of cleft palate Family history of congenital heart defect Family history of Down syndrome Family history of Jack syndrome History of section, classical Supervision of high risk , antepartum DVT of lower extremity (deep venous thrombosis) LGSIL on Pap smear of cervix Hypothyroid Abnormal glucose level Dichorionic diamniotic twin Family history of cleft palate Family history of congenital heart defect Family history of Down syndrome Family history of Jack syndrome History of section, classical Supervision of high risk , antepartum DVT of lower extremity (deep venous thrombosis) LGSIL on Pap smear of cervix Hypothyroid Abnormal glucose level Dichorionic diamniotic twin Family history of cleft palate Family history of congenital heart defect Family history of Down syndrome Family history of Jack syndrome History of section, classical Supervision of high risk , antepartum DVT of lower extremity (deep venous thrombosis) LGSIL on Pap smear of cervix Hypothyroid Abnormal glucose level Dichorionic diamniotic twin Family history of cleft palate Family history of congenital heart defect Family history of Down syndrome Family history of Jack syndrome History of section, classical Supervision of high risk , antepartum DVT of lower extremity (deep venous thrombosis) LGSIL on Pap smear of cervix Hypothyroid Abnormal glucose level Dichorionic diamniotic twin Family history of cleft palate Family history of congenital heart defect Family history of Down syndrome Family history of Jack syndrome History of section, classical Supervision of high risk , antepartum DVT of lower extremity (deep venous thrombosis) LGSIL on Pap smear of cervix Hypothyroid Abnormal glucose level Dichorionic diamniotic twin Family history of cleft palate Family history of congenital heart defect Family history of Down syndrome Family history of Jack syndrome History of section, classical Supervision of high risk , antepartum DVT of lower extremity (deep venous thrombosis) LGSIL on Pap smear of cervix Status post bilateral salpingectomy Hypothyroid Abnormal glucose level Dichorionic diamniotic twin Family history of cleft palate Family history of congenital heart defect Family history of Down syndrome Family history of Jack syndrome History of section, classical Supervision of high risk , antepartum Chief Complaint 22 WK OB *Twins Encounter for screening for diabetes mellitus 27wk ob *twins SYNCOPE 29 WK OB *twins GROWTH EVERY 4 WKS 31 WK OB *twins [place] [facility] 32WKS [place] [facility] 32WKS [place] [facility] 32WKS 34wk twins BPP is at 9:30 LT FOOT SWELLING *CALL WET READ* 35 wk OB *twins [place] [place] [facility] 32WKS 36 wk OB *twins R/O PRE E C SECTION/CSECTION DELIVERY C SECTION/CSECTION DELIVERY C SECTION/CSECTION DELIVERY C SECTION/CSECTION DELIVERY RULE OUT BP RULE OUT BP Reason for Visit DVT of lower extremi ty (deep venous thrombosis) LGSIL on Pap smear of cervix Hypothyroid Dichorionic diamniotic twin Family history of cleft palate Family history of congenital heart defect Family history of Down syndrome Family history of Jack syndrome Herpes simplex type 1 infection History of section, classical Supervision of high risk , antepartum Syncope DVT of lower extremity (deep venous thrombosis) LGSIL on Pap smear of cervix Hypothyroid Abnormal glucose level Dichorionic diamniotic twin Family history of cleft palate Family history of congenital heart defect Family history of Down syndrome Family history of Jack syndrome History of section, classical Supervision of high risk , antepartum DVT of lower extremity (deep venous thrombosis) LGSIL on Pap smear of cervix Hypothyroid Abnormal glucose level Dichorionic diamniotic twin Family history of cleft palate Family history of congenital heart defect Family history of Down syndrome Family history of Jack syndrome History of section, classical Supervision of high risk , antepartum DVT of lower extremity (deep venous thrombosis) LGSIL on Pap smear of cervix Hypothyroid Abnormal glucose level Dichorionic diamniotic twin Family history of cleft palate Family history of congenital heart defect Family history of Down syndrome Family history of Jack syndrome History of section, classical Supervision of high risk , antepartum DVT of lower extremity (deep venous thrombosis) LGSIL on Pap smear of cervix Hypothyroid Abnormal glucose level Dichorionic diamniotic twin Family history of cleft palate Family history of congenital heart defect Family history of Down syndrome Family history of Jack syndrome History of section, classical Supervision of high risk , antepartum DVT of lower extremity (deep venous thrombosis) LGSIL on Pap smear of cervix Hypothyroid Abnormal glucose level Dichorionic diamniotic twin Family history of cleft palate Family history of congenital heart defect Family history of Down syndrome Family history of Jack syndrome History of section, classical Supervision of high risk , antepartum DVT of lower extremity (deep venous thrombosis) LGSIL on Pap smear of cervix Hypothyroid Abnormal glucose level Dichorionic diamniotic twin Family history of cleft palate Family history of congenital heart defect Family history of Down syndrome Family history of Jack syndrome History of section, classical Supervision of high risk , antepartum DVT of lower extremity (deep venous thrombosis) LGSIL on Pap smear of cervix Status post bilateral salpingectomy Hypothyroid Abnormal glucose level Dichorionic diamniotic twin Family history of cleft palate Family history of congenital heart defect Family history of Down syndrome Family history of Jack syndrome History of section, classical Supervision of high risk , antepartum hypertension Chief Complaint TOE INJURY Chief Complaint Annual (COLLEGE [employer]IRE) Reason for Visit Abnormal uterine ble eding Encounter for routine gynecological examination Chief Complaint Annual (COLLEGE HIRE) MENORRHAGIA Reason for Visit Abnormal uterine ble eding Encounter for routine gynecological examination Additional Source Comments INFORMATION SOURCE (unrecogn ized section and content) DATE CREATED AUTHOR 01/13/2018 [facility] DATE CREATED AUTHOR AUTHOR'S ORGANIZ ATION 01/18/2018 [facility] DATE CREATED AUTHOR AUTHOR'S ORGANIZ ATION 11/27/2018 [facility] DATE CREATED AUTHOR AUTHOR'S ORGANIZ ATION 09/28/2021 [facility] DATE CREATED AUTHOR AUTHOR'S ORGANIZ ATION 04/25/2022 [facility] DATE CREATED AUTHOR AUTHOR'S ORGANIZ ATION 10/07/2024 [facility] Source Comments (unrecognize d section and content) In the event this informatio n is protected by the Federal Confidentiality of Alcohol and Drug Abuse Patient Records regulations: The Federal rules restrict any use of the information to criminally investigate or prosecute any alcohol or drug abuse patient.[facility] Reason for Visit (unrecogniz ed section and content) Reason Comments Ear Pain right ear pain and s inus pressure x 1 week Goals (unrecognized section and content) Goals may be documented in a n alternate sectionGoals may be documented in an alternate sectionGoals may be documented in an alternate sectionGoals may be documented in an alternate sectionGoals may be documented in an alternate sectionGoals may be documented in an alternate sectionGoals may be documented in an alternate sectionGoals may be documented in an alternate sectionGoals may be documented in an alternate sectionGoals may be documented in an alternate sectionGoals may be documented in an alternate sectionGoals may be documented in an alternate sectionGoals may be documented in an alternate sectionGoals may be documented in an alternate sectionGoals may be documented in an alternate sectionGoals may be documented in an alternate section Care Teams (unrecognized sec tion and content) Team Status: Active Member Role Status Dates No Primary Care Physician Family Provider Active Dr. Dee Stern MD Primary Care Provider Active Team Status: Inactive Member Role Status Dates Dr. Dee Stern MD Primary Care Provider Active Dr. Joe Woods DO Attending Provider, Emergency Pr ovider Active Team Status: Inactive Member Role Status Dates Dr. Dee Stern MD Primary Care Prov ider, Attending Provider, Referring Provider Active Team Status: Inactive Member Role Status Dates Dr. Dee Stern MD Primary Care Provider, Referrin g Provider Active Mayelin Bolden CNM Attending Provider Active Team Status: Inactive Member Role Status Dates Dr. Dee Stern MD Primary Care Provider Active Mayelin Bolden CNM Attending Provider, Referring Pro vider Active FOR RECORDS PERTAINING TO PATIENTS WHO ARE [...] BE BASED ON THE PRIMARY CLINICAL RECORDS. [facility]. provides no warranty or guarantee of the accuracy or completeness of information in this document.
[2024-11-06 09:28] LABS: Absolute Lymphocyte Count 2.71 X10^3/uL (0.83-4.51); Absolute Neutrophil Count 5.7 X10^3/uL (2.0-7.7); Basophil# 0.07 X10^3/uL; Basophil% 0.7 % (0-1); Eosinophil# 0.24 X10^3/uL; Eosinophils% 2.6 % (0-5); Hematocrit 42.5 % (37-47); Hemoglobin 14.2 g/dL (12.0-15.0); Lymphocyte # 2.71 X10^3/ul (0.83-4.51); Mean Corp Hgb Conc 33.4 g/dL (32-36); Mean Corpuscular Hgb 26.9 pg (27.0-32.0); Mean Corpuscular Volume 80.5 fL (81-99); Mean Platelet Vol. 10.3 fl (6.2-12.0); Monocyte# 0.62 X10^3/uL; Monocyte% 6.6 % (0-10); NRBC Flagged by Analyzer 0 % (0-5); Neutrophil # 5.66 X10^3/uL (2.7-7.7); Neutrophil % 60.7 % (47-70); Platelet Count 227 K/mm3 (150-450); RBC Distribution Width CV 13.3 % (11.6-14.6); RBC Distribution Width SD 38.6 fl (35.1-43.9); Red Blood Count 5.28 M/mm3 (4.2-5.4); White Blood Count 9.3 K/mm3 (4.4-11.0)
[2024-11-06 10:12] LABS: Hemoglobin A1c 5.5 % (<=5.6)
[2024-11-06 10:24] LABS: Cholesterol 226 mg/dL (<=200); High Density Lipoprotein 36 mg/dL; Low Density Lipoprotein Calc. 142 mg/dL; Triglycerides 241 mg/dL; Very Low Density Lipoprotein 48 mg/dL (5-40); Vitamin D,25 Hydroxy 25.2 ng/mL (30-100); cholesterol:hdl ratio screen 6.31
[2024-11-06 10:27] LABS: ALB/GLOB Ratio 1.4 RATIO (0.9-2.4); AST(SGOT) 20 U/L (<=31); Alanine Aminotransfer ALT/SGPT 18 U/L (<=34); Alkaline Phosphatase 101 U/L (35-104); Anion Gap 11 (5-15); BUN 15 mg/dL (4-19); BUN/Creat Ratio 16.2 RATIO (10-20); Calcium,Total 8.7 mg/dL (7.6-11.0); Carbon Dioxide 21.5 mmol/L (21.0-32.0); Chloride 106 mmol/L (98-108); EST Glomerular Filtration Rate 87 (>60); Glucose 98 mg/dL (70-99); Potassium 4.1 mmol/L (3.3-5.1); Sodium Level 139 mmol/L (133-145); Total Bilirubin 0.29 mg/dL (0.00-1.30)
== END | disposition home or self-care (01) ==
LOC: LAB 08:50
PROVIDERS: PCP Family Medicine; Referring Provider Obstetrics & Gynecology; Visit Provider Obstetrics & Gynecology
DX: E66.9 Obesity, unspecified (principal); Z13.220 Encounter for screening for lipoid disorders; E01.0 Iodine-deficiency related diffuse (endemic) goiter; Z13.1 Encounter for screening for diabetes mellitus; Z13.21 Encounter for screening for nutritional disorder
CPT/HCPCS: 36415; 80053; 80061; 82306; 83036; 84443; 85025

== ENCOUNTER → 2025-01-13 | Outpatient (CLI) | payer MEDICAID, SELFPAY | END | disposition home or self-care (01) | LOC: SL 09:13 | PROVIDERS: PCP Family Medicine; Referring Provider Nurse Practitioner Acute Care; Visit Provider Nurse Practitioner Acute Care | DX: G47.33 Obstructive sleep apnea (adult) (pediatric) (principal); G47.10 Hypersomnia, unspecified | CPT/HCPCS: 95806 ==

== ENCOUNTER → 2025-02-04 | Outpatient (CLI) | payer MEDICAID, SELFPAY | END | disposition home or self-care (01) | LOC: SL 19:56 | PROVIDERS: PCP Family Medicine; Referring Provider Nurse Practitioner Acute Care; Visit Provider Nurse Practitioner Acute Care | DX: G47.10 Hypersomnia, unspecified (principal) | CPT/HCPCS: 95810 ==

== ENCOUNTER 2025-04-19 16:33 | Emergency (ER) | payer MEDICAID, SELFPAY ==
[2025-04-19 16:35] VITALS: BP 134/79; PULSE 95; RESP 18; TEMP 36.1; O2SAT 100
--- NOTE | 2025-04-19 16:50 | RAD_ITS ---
PROCEDURE: LUMBAR SPINE 2 OR 3 VIEWS 04/19/2025 REASON FOR EXAM: PAIN TECHNIQUE: Procedure Code: RADSPLL Modality: DX Procedure: LUMBAR SPINE 2 OR 3 VIEWS COMPARISON: None. FINDINGS: No evidence of acute fracture or subluxation. Alignment is anatomic. Preserved vertebral body heights and relatively well preserved disc spaces. Mild degenerative changes primarily in the lower lumbar levels with hypertrophic facet arthropathy. Unremarkable soft tissues. RAD/Lumbar Spine 2 or 3 Views IMPRESSION: No evidence of fracture or subluxation. Mild spondylotic changes. Reading Location: [id number]
--- NOTE | 2025-04-19 16:50 | ED.VIS.BACK ---
HPI History of Present Illness Chief Complaint: Back Narrative Narrative: 34-year-old female past medical history of chronic back pain starting 3 years ago presents for x-rays of her back at the direction of her chiropractor. She states that over the last week and a half she has had a flareup. She has been seeing him where she had ultrasound therapy performed as well as electrostimulation. She had that performed and was there today for repeat visit. She states that yesterday, her pain had started to improve but then got worse. She states that her chiropractor sent her in to get x-rays to make sure that she did not have a disc problem as opposed to straight sciatica. She has pain that radiates to her right lower extremity/right hip. She denies any recent trauma. No fevers or chills, no loss of bowel or bladder, no saddle anesthesia. She is able to ambulate but has pain with bending and transfer. [facility] Medical History Back pain Impetigo Gestational hypertension delivery delivered Family history of hearing loss at age younger than 7 years Thyroid disorder Anxiety Depression Hx of cardiac murmur H/O blood clots Home Medications Medication Instructions Recorded Last Taken Type levothyroxine 75 mcg tablet 75 mcg PO QDAY 11/11/23 Unknown History fluoxetine 20 mg capsule (Prozac) 20 mg PO QDAY 10/04/24 Unknown History cholecalciferol (vitamin D3) 50 50 mcg PO QDAY 11/23/24 Unknown History mcg (2,000 unit) capsule buspirone 10 mg tablet 10 mg PO TID 30 days #90 tabs 03/10/25 Unknown Rx phentermine 37.5 mg tablet 18.75 mg (1/2 x 37.5 mg) PO DAILY 04/07/25 Unknown Rx #15 tabs topiramate 25 mg tablet 25 mg PO BID #60 tabs 04/07/25 Unknown Rx cyclobenzaprine 10 mg tablet 10 mg PO TID PRN Muscle Spasm #20 04/19/25 Unknown Rx TABLETS Allergy/AdvReac Type Severity Reaction Status Date / Time adhesive tape (tape) Allergy Other Verified 04/19/25 16:35 latex Allergy Other Verified 04/19/25 16:35 Anesthetics - Amide Type - AdvReac Severe Vomiting Verified 04/19/25 16:35 Select A Family History Mother Age related osteoporosis CVA (cerebral vascular accident) Myeloma Anesthesia complication History of blood clots Cancer Grandfather Alcoholism Asthma Diabetes Myocardial infarction 40's Respiratory disease Heart disease Grandfather Myocardial infarction 40's Grandmother Anesthesia complication Arthritis Breast cancer Epilepsy Skin cancer CVA (cerebral vascular accident) Father Arthritis Depression Hypertension High cholesterol Thyroid disorder Daughter Alatorre syndrome Thyroid disorder Surgical History H/O bilateral salpingectomy History of placement of ear tubes History of colposcopy History of tonsillectomy History of Social History adopted: No household members: significant other number of children: 3 current occupation: [employer] Smoking Status: Never smoker alcohol intake: never substance use type: does not use caffeine: Yes (limited) Type: tea what type of physical activity do you participate in: walking seatbelt use: always do you feel safe at home: Yes additional social history: Vicky CLARK ROS ED ROS Narrative Review of systems positive for more right sided low back pain/lumbar pain with radiation to right hip and lower extremity. No fevers or chills, no nausea or vomiting, no saddle anesthesia, no loss of bowel or bladder. No trauma. EXAM Physical Exam Narrative Exam Narrative: Afebrile. Vital signs noted. Nontoxic-appearing. Cardiovascular examination reveals regular rate and rhythm. Lungs clear to auscultation bilaterally. Abdomen soft and nontender. Inspection of the low back shows that she does have a back brace in place. She has no tenderness in the right sciatic notch, no crepitance. She is ambulatory in the ED without difficulty. Const Vital Signs: 04/19/25 16:35 04/19/25 17:29 Temperature 97 F L 97.6 F L Temperature Source Temporal Pulse Rate 95 66 Respiratory Rate 18 14 Blood Pressure 134/79 H 145/103 H Blood Pressure Mean 97 117 Pulse Ox 100 99 Oxygen Delivery Method Room Air MDM MDM MDM Narrative Medical decision making narrative: The differential diagnosis includes but not limited to degenerative disc disease versus sciatica versus musculoskeletal back pain versus cauda equina. There are no red flags for cauda equina syndrome and I do not feel that she needs a stat MRI. Quite frankly she states she is here for the x-rays. She started her menses recently and is currently on them and additionally she states that she has had bilateral tubal ligation. X-rays were obtained of the lumbar spine. She was told to remove her brace prior to x-rays as well. Additionally, she requested that they be put on a disk for her chiropractor. On my individual interpretation of the x-rays of the lumbar spine, I see no evidence of an acute compression fracture, no disc space narrowing. I reviewed the radiology report which confirms my independent interpretation and comments on mild spondylotic changes. At this point in time, I do feel that she can be discharged to follow-up with her chiropractor. She will continue [id number] medications but I did write her for Flexeril as a muscle relaxer. Return instructions to the emergency department were reviewed. I do not feel that she requires observation or admission as she is ambulatory, and upon repeat examination is lying comfortably on the cot getting her blood pressure taken. Disposition is discharged home in stable condition. History & Record Review Discussion w/independent historian: Patient Additional record(s) reviewed:: Prior ED visit (Last ED visit 2022) Radiography X-Ray: LS SPine, Read by ED Physician, Read by Radiologist and No Fracture Diagnostic Testing: Clinical Impression(s) from Imaging Studies Lumbar Spine X-Ray 04/19/25 16:50 IMPRESSION: No evidence of fracture or subluxation. Mild spondylotic changes. Reading Location: [facility] Discharge Plan Triage Chief Complaint: Back ED Provider: Holden France Dx/Rx/DC Orders Clinical Impression: Sciatic leg pain, Back pain Instructions: ED Back Pain (Acute or Chronic), ED Sciatica Prescriptions: New cyclobenzaprine 10 mg tablet 10 mg PO TID PRN (Reason: Muscle Spasm) Qty: 20 0RF No Action levothyroxine 75 mcg tablet 75 mcg PO QDAY fluoxetine [Prozac] 20 mg capsule 20 mg PO QDAY cholecalciferol (vitamin D3) 50 mcg (2,000 unit) capsule 50 mcg PO QDAY buspirone 10 mg tablet 10 mg PO TID 30 Days Qty: 90 11RF topiramate 25 mg tablet 25 mg PO BID Qty: 60 0RF phentermine 37.5 mg tablet 18.75 mg PO DAILY Qty: 15 0RF Rx Instructions: must administer 30 minutes before or 1-2 hours after breakfast Primary Care Provider: Dee Stern Referrals: Dee Stern MD [Primary Care Provider, [facility]] Activity Restrictions/Additional Instructions: Follow-up with your chiropractor as soon as possible. Take Flexeril as directed, beware of drowsiness associated with it. Return with fever, increased pain, new or worsening symptoms. Continue Tylenol and/or ibuprofen as needed for pain. Print Language: Gambian Disposition Disposition: Home, Self Care
--- NOTE | 2025-04-19 16:55 | ED.RN ---
RADIOLOGY CALLED FOR IMAGES TO BE PLACED ON A DISC
[2025-04-19 17:29] VITALS: BP 145/103; PULSE 66; RESP 14; TEMP 36.4; O2SAT 99
== END 2025-04-19 17:39 | disposition home or self-care (01) ==
PROVIDERS: Emergency Provider Emergency Medicine; PCP Family Medicine; Visit Provider Emergency Medicine
DX: M51.16 Intervertebral disc disorders with radiculopathy, lumbar region (principal); G89.29 Other chronic pain
CPT/HCPCS: 72100; 99282